=== PATIENT | male | born 1950 | race Caucasian/White ===

== ENCOUNTER → 2018-03-09 | Outpatient (CLI) | payer OTHER ==
[~2018-03-09] MED LIST: ALLO-119 PO; CHLOR25 PO; CPAP; FLUT16SP19 NS; FURO20TA19 PO; IBUP-56 PO; IBUP600T22 PO; INSU100I35 SQ; INSU300I SUBQ; METF-421 PO; METF10002 PO; METO2.5T15 PO; PNEU0.5D3 IM; POTA-23 PO; POTA-53 PO; POTA20IV IV; PRAV20TA65 PO; PRAV40TA78 PO; SOT80 FT; SOT80 PO; WARF5TAB23 PO; cpap
[2018-03-09 12:23] LABS: PLATELET COUNT, AUTOMATED 183 K/uL (150-450)
[2018-03-09 12:31] LABS: INR 2.17
[2018-03-09 12:40] LABS: LDL CHOLESTEROL 73 mg/dl
== END ==
LOC: LAB 12:13
PROVIDERS: ATTEND Emergency Medicine
DX: E11.9 Type 2 diabetes mellitus without complications (principal); Z79.01 Long term (current) use of anticoagulants
CPT/HCPCS: 36415; 82040; 82247; 82310; 82374; 82435; 82465; 82565; 82947; 83036; 83718; 84075; 84132; 84155; 84295; 84450; 84460; 84478; 84520; 85025; 85610

== ENCOUNTER → 2018-05-04 | Outpatient (CLI) | payer OTHER ==
[~2018-05-04] MED LIST changes: +FLUO-177 PO; +FLUO40CA76 PO; +MAGN400T36 PO
== END ==
LOC: LAB 09:58
PROVIDERS: ATTEND Emergency Medicine
DX: E11.9 Type 2 diabetes mellitus without complications (principal); E87.6 Hypokalemia
CPT/HCPCS: 36415; 82310; 82374; 82435; 82565; 82947; 83735; 84132; 84295; 84520

== ENCOUNTER → 2018-06-01 | Outpatient (CLI) | payer OTHER ==
[~2018-06-01] MED LIST changes: +METO50TA19 PO; +POTA20TA94 PO
--- NOTE | 2018-06-04 21:33 | RT HOLTER TEST ---
FACILITY: [facility] PATIENT NAME: MONICA EUBANKS : [id number] MR: [id number] V: [id number] EXAM DATE: ORDERING PHYSICIAN: MICHELET GARCIA TECHNOLOGIST: Jeffery Abraham-up date: 2018-06-01 10:00:00 Duration: 24:41:00 Test Indications: I49.9 Medications: In Chart [id number] QRS complexes 746 Ventricular ectopics which represent <1 % of total QRS comp. * Supraventricular ectopics which represent % of total QRS comp. * Paced QRS complexes which represent % of total QRS comp. VENTRICULAR ECTOPY 730 Isolated 0 Bigeminal Cycles 8 Couplets 0 Runs 0 Beats in Runs * Beats LONGEST at * BPM at :: -- * Beats FASTEST at * BPM at :: -- SUPRAVENTRICULAR ECTOPY * Isolated * Couplets * Runs * Beats in Runs * Beats LONGEST at * BPM at :: -- * Beats FASTEST at * BPM at :: -- HEART RATES 48 MIN at 02:07:32 2018-06-02 81 AVG 161 MAX at 10:07:01 2018-06-01 LONGEST RR 1.912 secs at 06:01:26 2018-06-02 S-T LEVELS Channel 1 -12.800 mm MIN at 10:00:00 2018-06-01 -12.800 mm MAX at 10:00:00 2018-06-01 Channel 2 -12.800 mm MIN at 10:00:00 2018-06-01 -12.800 mm MAX at 10:00:00 2018-06-01 Channel 3 -12.800 mm MIN at 10:00:00 2018-06-01 -12.800 mm MAX at 10:00:00 2018-06-01 Persistent a-fib with varying ventricular response rates. Premature ventricular complexes Confirmed by Williams Radford ([id number]) on 06/04/2018 9:32:18 PM Referred By: Overread By: Williams Chester
== END ==
LOC: RESP 06:42
PROVIDERS: ATTEND Internal Medicine Cardiovascular Disease
DX: I48.91 Unspecified atrial fibrillation (principal); I49.3 Ventricular premature depolarization
CPT/HCPCS: 93225; 93226

== ENCOUNTER → 2018-06-06 | Outpatient (CLI) | payer OTHER | LOC: LAB 10:30 | PROVIDERS: ATTEND Emergency Medicine | DX: E83.42 Hypomagnesemia (principal); E11.9 Type 2 diabetes mellitus without complications; R82.99 Other abnormal findings in urine | CPT/HCPCS: 36415; 81001; 82310; 82374; 82435; 82565; 82947; 83036; 83735; 84132; 84295; 84520 ==

== ENCOUNTER → 2018-06-08 | Outpatient (CLI) | payer OTHER ==
[2018-06-08 07:52] LABS: INR 2.66
== END ==
LOC: LAB 07:15
PROVIDERS: ATTEND Emergency Medicine
DX: E87.6 Hypokalemia (principal); Z79.01 Long term (current) use of anticoagulants
CPT/HCPCS: 36415; 82310; 82374; 82435; 82565; 82947; 84132; 84295; 84520; 85610

== ENCOUNTER → 2018-06-11 | Outpatient (CLI) | payer OTHER | LOC: LAB 09:11 | PROVIDERS: ATTEND Emergency Medicine | DX: E87.6 Hypokalemia (principal) | CPT/HCPCS: 36415; 82310; 82374; 82435; 82565; 82947; 84132; 84295; 84520 ==

== ENCOUNTER → 2018-06-13 | Outpatient (CLI) | payer OTHER | LOC: US 00:57 | PROVIDERS: ATTEND Internal Medicine Cardiovascular Disease | DX: I51.7 Cardiomegaly (principal); Q21.0 Ventricular septal defect | CPT/HCPCS: 93352; C8929 ==

== ENCOUNTER → 2018-06-15 | Outpatient (CLI) | payer OTHER | LOC: LAB 10:00 | PROVIDERS: ATTEND Emergency Medicine | DX: E87.6 Hypokalemia (principal) | CPT/HCPCS: 36415; 82310; 82374; 82435; 82565; 82947; 84132; 84295; 84520 ==

== ENCOUNTER → 2018-07-04 | Outpatient (CLI) | payer OTHER ==
[~2018-07-04] MED LIST changes: -METF-421 PO; +METF-452 PO; +SPIR25TA80 PO; +SPIR50TA33 PO
== END ==
LOC: LAB 09:45
PROVIDERS: ATTEND Emergency Medicine
DX: E87.6 Hypokalemia (principal)
CPT/HCPCS: 36415; 82310; 82374; 82435; 82565; 82947; 83735; 84132; 84295; 84520

== ENCOUNTER → 2018-07-18 | Outpatient (CLI) | payer OTHER ==
[~2018-07-18] MED LIST changes: +FLAS1EAC; +FLAS1KIT SUBQ; +FLU180SY11 IM
[2018-07-18 09:14] LABS: PLATELET COUNT, AUTOMATED 164 K/uL (150-450)
== END ==
LOC: LAB 08:59
PROVIDERS: ATTEND Emergency Medicine
DX: E11.9 Type 2 diabetes mellitus without complications (principal)
CPT/HCPCS: 36415; 82310; 82374; 82435; 82565; 82947; 83036; 84132; 84295; 84520; 85025

== ENCOUNTER → 2018-07-26 | Outpatient (CLI) | payer OTHER | LOC: LAB 15:52 | PROVIDERS: ATTEND Emergency Medicine | DX: R19.7 Diarrhea, unspecified (principal) | CPT/HCPCS: 82274; 82438; 83630; 84302; 84999; 87045; 87177; 87324; 87338; 87449 ==

== ENCOUNTER → 2018-08-03 | Outpatient (CLI) | payer OTHER ==
[~2018-08-03] MED LIST changes: +ATOR40TA69 PO; +CHOL100052 PO
== END ==
LOC: LAB 10:29
PROVIDERS: ATTEND Emergency Medicine
DX: E78.5 Hyperlipidemia, unspecified (principal); E83.51 Hypocalcemia; R20.8 Other disturbances of skin sensation
CPT/HCPCS: 36415; 82306; 82465; 83718; 84478

== ENCOUNTER 2018-09-29 20:24 | Emergency (ER) | payer OTHER ==
[~2018-09-29 20:24] MED LIST changes: +DOXY-179 PO
--- NOTE | 2018-09-29 20:26 | ER Report ---
History and Physical Time Seen By MD: 20:26 HPI/ROS CHIEF COMPLAINT: Nosebleed HISTORY OF PRESENT ILLNESS: 68-year-old male presents ambulatory to the ER complaining of nosebleeds for one week. He was started on doxycycline for a skin rash by his primary care physician, . Patient states he did having intermittent nosebleeds. He's been packing his nose for the last 2 days. Tonight. It's a continuous bleed. He is unable to get it stopped presents to the emergency department. Patient appears grossly jaundiced with icteric scl era. On just gross visualization. Review of systems: Respiratory: No cough, no dyspnea. Cardiovascular: No chest pain, no palpitations. Gastrointestinal: No vomiting, no abdominal pain. Musculoskeletal: No back pain. Allergies: Coded Allergies: Penicillins (Verified Allergy, Unknown, 09/29/18) EHR CONVERSION Home Meds Active Scripts Ondansetron Hcl (ZOFRAN) 4 Mg Tablet, 4 MG PO TID for Nausea, #14 TAB Prov:BENITO STOLL MD 10/01/18 Spironolactone (SPIRONOLACTONE) 50 Mg Tablet, 50 MG PO DAILY, #90 TAB 3 Refills Prov:BENITO STOLL MD 08/07/18 Atorvastatin Calcium (ATORVASTATIN CALCIUM) 40 Mg Tablet, 1 TAB PO QDAY, #90 TAB 0 Refills Prov:BENITO STOLL MD 08/03/18 Insulin Glargine,Hum.rec.anlog (Toujeo Solostar) 300 Unit/1 Ml Insuln.pen, 10 UNITS SUBQ QHS, #3 BOX 3 Refills Increase by 2 units every 2 days to keep fasting blood sugars between 80-120 Prov:BENITO STOLL MD 08/03/18 Flash Glucose Sensor (Freestyle Jez Sensor) 1 Each Kit, EA SUBQ DIRECTED, #3 11 Refills Prov:BENITO STOLL MD 07/18/18 Flash Glucose Scanning Hamill (Freestyle Jez Hamill) 1 Each Each, MISC, #1 Prov:BENITO STOLL MD 07/18/18 Insulin Aspart 100 Un/Ml Pen (NOVOLOG FLEXPEN) 100 Unit/1 Ml Insuln.pen, 40 UNIT SQ TID, #6 BOX 3 Refills 40 units QAM 36 units before lunch. 40 unit QPM. Prov:BENITO STOLL MD 06/27/18 Potassium Chloride (POTASSIUM CHLORIDE) 20 Meq Tab.er.prt, 2 TAB PO QDAY, #270 TAB 3 Refills Prov:BENITO STOLL MD 06/27/18 Magnesium Oxide (MAGNESIUM OXIDE) 400 Mg Tablet, 400 MG PO BID, #120 TAB 0 Refills Prov:BENITO STOLL MD 06/07/18 Fluoxetine Hcl (PROZAC) 40 Mg Capsule, 40 MG PO QDAY, #90 CAPSULE 3 Refills Prov:BENITO STOLL MD 05/04/18 Allopurinol (ZYLOPRIM) 300 Mg Tablet, 1 TAB PO DAILY, #90 TAB 3 Refills Please establish care with Dr. Stoll on 03/09/18 for further refills. Prov:BENITO STOLL MD 03/09/18 Reported Medications Cholecalciferol (Vitamin D3) (VITAMIN D) 1,000 Unit Tablet, 1000 UNIT PO DAILY 08/06/18 Metoprolol Succinate (METOPROLOL SUCCINATE) Unknown Strength Tab.er.24h, PO QDAY, TAB 06/06/18 Ibuprofen (IBUPROFEN) 200 Mg Tablet, 2 TAB PO QAM, TAB 03/09/18 [cpap] No Conflict Check, QHS 03/09/18 Fluticasone Prop 50 Mcg Ns (FLONASE 50 MCG NS) 16 Gm [place].susp, 1 SPRAY NS PRN, BOT 07/25/17 Cpap (CPAP HOME) Inha 07/25/17 Discontinued Scripts Doxycycline Hyclate (DOXYCYCLINE HYCLATE) 100 Mg Tablet, 100 MG PO BID, #30 TAB Prov:BENITO STOLL MD 09/04/18 Warfarin Sodium (WARFARIN SODIUM) 5 Mg Tablet, 5 MG PO QDAY, #192 TAB 3 Refills 10 mg on , Wed, Th, Sat, Sun. 15 mg on Mon, Mon. Prov:BENITO STOLL MD 06/08/18 Past Medical/Surgical History Past Medical History Cardiovascular: Reports hx of: atrial fibrillation (AND FLUTTER) hyperlipidemia Respiratory: Reports hx of: pneumonia sleep apnea (OBSTRUCTIVE, CPAP) Musculoskeletal: Reports hx of: osteoarthritis (knees, hips, ankles) Psychiatric: Reports hx of: depression Endocrine: Reports hx of: diabetes type 2 (WITH METABOLIC SYNDROME) obesity Past Surgical History HEENT: Reports hx of: tonsillectomy (1971) Musculoskeletal: Reports hx of: arthroscopy (bilateral knees) fracture repair (L foot) other musculosk surgery (L hip gluteal repair) Reviewed Nurses Notes: Yes Old Medical Records Reviewed: Yes Smoking Status: Never Smoker Exposure to Second Hand Smoke?: Yes (both parents ) Constitutional Vital Sign - Last 24 Hours 09/29/18 09/29/18 09/29/18 09/29/18 20:30 20:31 20:39 20:54 Pulse 79 80 72 Resp 14 B/P (MAP) 116/75 (89) 116/75 Pulse Ox 93 93 93 O2 Delivery Room Air 09/29/18 09/29/18 09/29/18 09/29/18 21:00 21:09 21:24 21:30 Pulse 69 81 B/P (MAP) 107/50 (69) 110/64 (79) Pulse Ox 92 90 09/29/18 09/29/18 09/29/18 09/29/18 21:39 21:54 22:00 22:09 Pulse 77 79 86 B/P (MAP) 108/60 (76) Pulse Ox 90 93 90 Physical Exam General Appearance: The patient is alert, has no immediate need for airway protection and no current signs of toxicity. Jaundice appearing, anicteric sclera HEENT: Pupils equal and round no injection. TMs normal, anicteric sclera, nasal passages patent, the left nasal passages packed with clean neck stiff. She. Upon removal, there is dark blood and clots noted. No active bleeding was not ed. Respiratory: Chest is non tender, lungs are clear to auscultation. Cardiac: regular rate and rhythm Gastrointestinal: Abdomen is soft and non tender, no masses, bowel sounds normal. Musculoskeletal: Neck: Neck is supple and non tender. Extremities have full range of motion and are non tender. Skin: No rashes or lesions. DIFFERENTIAL DIAGNOSIS: After history and physical exam differential diagnosis was considered for epistaxis, excessive anticoagulation, hypertension, adverse medication reaction, jaundice Medical Decision Making Data Points Result Diagram: 09/29/18204909/29/182049 Laboratory Hematology Test 09/29/18 20:50 Red Blood Count 4.97 M/uL (4.00-5.60) Mean Corpuscular Volume 92.1 fL (80.0-96.0) Mean Corpuscular Hemoglobin 30.9 pg (26.0-33.0) Mean Corpuscular Hemoglobin Concent 33.6 g/dL (32.0-36.0) Red Cell Distribution Width 16.3 % (11.5-14.5) Mean Platelet Volume 9.8 fL (7.2-11.1) Neutrophils (%) (Auto) 77.9 % (39.4-72.5) Lymphocytes (%) (Auto) 9.7 % (17.6-49.6) Monocytes (%) (Auto) 9.7 % (4.1-12.4) Eosinophils (%) (Auto) 0.9 % (0.4-6.7) Basophils (%) (Auto) 1.8 % (0.3-1.4) Nucleated RBC Relative Count (auto) 0.0 /100WBC Neutrophils # (Auto) 7.4 K/uL (2.0-7.4) Lymphocytes # (Auto) 0.9 K/uL (1.3-3.6) Monocytes # (Auto) 0.9 K/uL (0.3-1.0) Eosinophils # (Auto) 0.1 K/uL (0.0-0.5) Basophils # (Auto) 0.2 K/uL (0.0-0.1) Nucleated RBC Absolute Count (auto) 0.00 K/uL Prothrombin Time > 100.0 seconds Prothromb Time International Ratio Activated Partial Thromboplast Time 168 seconds (23-35) Sodium Level 137 mmol/L (137-145) Potassium Level 3.8 mmol/L (3.5-5.0) Chloride Level 103 mmol/L (98-107) Carbon Dioxide Level 23 mmol/L (22-30) Blood Urea Nitrogen 15 mg/dl (9-21) Creatinine 0.80 mg/dl (0.66-1.25) Glomerular Filtration Rate Calc > 60.0 Random Glucose 61 mg/dl (75-110) Calcium Level 8.8 mg/dl (8.4-10.2) Total Bilirubin 9.8 mg/dl (0.2-1.3) Aspartate Amino Transf (AST/SGOT) 213 U/L (0-35) Alanine Aminotransferase (ALT/SGPT) 158 U/L (0-56) Alkaline Phosphatase 1089 U/L (0-126) Total Protein 7.1 g/dl (6.3-8.2) Albumin 3.3 g/dl (3.5-5.0) Chemistry Test 09/29/18 20:50 White Blood Count 9.5 k/uL (4.5-11.0) Red Blood Count 4.97 M/uL (4.00-5.60) Hemoglobin 15.4 g/dL (14.0-18.0) Hematocrit 45.8 % (42.0-52.0) Mean Corpuscular Volume 92.1 fL (80.0-96.0) Mean Corpuscular Hemoglobin 30.9 pg (26.0-33.0) Mean Corpuscular Hemoglobin Concent 33.6 g/dL (32.0-36.0) Red Cell Distribution Width 16.3 % (11.5-14.5) Platelet Count 187 K/uL (150-450) Mean Platelet Volume 9.8 fL (7.2-11.1) Neutrophils (%) (Auto) 77.9 % (39.4-72.5) Lymphocytes (%) (Auto) 9.7 % (17.6-49.6) Monocytes (%) (Auto) 9.7 % (4.1-12.4) Eosinophils (%) (Auto) 0.9 % (0.4-6.7) Basophils (%) (Auto) 1.8 % (0.3-1.4) Nucleated RBC Relative Count (auto) 0.0 /100WBC Neutrophils # (Auto) 7.4 K/uL (2.0-7.4) Lymphocytes # (Auto) 0.9 K/uL (1.3-3.6) Monocytes # (Auto) 0.9 K/uL (0.3-1.0) Eosinophils # (Auto) 0.1 K/uL (0.0-0.5) Basophils # (Auto) 0.2 K/uL (0.0-0.1) Nucleated RBC Absolute Count (auto) 0.00 K/uL Prothrombin Time > 100.0 seconds Prothromb Time International Ratio Activated Partial Thromboplast Time 168 seconds (23-35) Glomerular Filtration Rate Calc > 60.0 Calcium Level 8.8 mg/dl (8.4-10.2) Total Bilirubin 9.8 mg/dl (0.2-1.3) Aspartate Amino Transf (AST/SGOT) 213 U/L (0-35) Alanine Aminotransferase (ALT/SGPT) 158 U/L (0-56) Alkaline Phosphatase 1089 U/L (0-126) Total Protein 7.1 g/dl (6.3-8.2) Albumin 3.3 g/dl (3.5-5.0) Coagulation Test 09/29/18 20:50 Prothrombin Time > 100.0 seconds Prothromb Time International Ratio Activated Partial Thromboplast Time 168 seconds ED Course/Re-evaluation ED Course Patient was admitted to an examination room. H&P was done. The differential diagnoses was considered. Patient with aggressive bleeding from his left nares. A 5.5, 70 rapid Rhino was saturated in TXA and placed in the left nares and inflated. Good hemostasis was obtained. Diagnostic studies were ordered. Patient has gross elevation of the LFTs. There is elevated PT, INR and PTT. P atient was given vitamin K 10 mg by mouth to reverse his anti-coagulation. Patient's advised to follow-up with primary care in 3 days to have his nasal packing removed. Patient advised to discontinue his warfarin until rechecked. I suspect the Patient had an adverse reaction to the doxycycline along with some of his diabetic medications. Decision to Disposition Date: Sep 29, 2018 Decision to Disposition Time: 20:52 Depart Departure Latest Vital Signs Vital Signs Date Time Temp Pulse Resp B/P (MAP) Pulse Ox O2 Delivery O2 Flow Rate FiO2 09/29/18 22:09 86 90 09/29/18 22:00 108/60 (76) 09/29/18 20:31 14 Room Air Impression: Primary Impression: Epistaxis Additional Impressions: Jaundice Type II diabetes mellitus Elevated INR Hypoglycemia Condition: Improved Disposition: HOME OR SELF-CARE Referrals: BENITO STOLL MD (PCP) Patient Instructions: Nosebleed (ED) Additional Instructions: Stop Coumadin until follow-up early next week with primary care Have nasal packing removed in 3 days Return to the ER for any worsening Problem Qualifiers Additional Impressions: Type II diabetes mellitus Diabetes mellitus assisted insulin use: with assisted use Diabetes mellitus complication status: without complication Qualified Codes: E11.9 - Type 2 diabetes mellitus without complications; Z79.4 - care home (current) use of insulin RODERICK KERN DO Sep 29, 2018 20:26
[2018-09-29] MEDS ORDERED: TRANEXAMIC AC 1000 MG/10ML SDV ONE (20:41)
[2018-09-29] MEDS ORDERED: ENT KIT ONE (20:42)
[2018-09-29 21:07] LABS: PLATELET COUNT, AUTOMATED 187 K/uL (150-450)
[2018-09-29 22:00] VITALS: BP 108/60
[2018-09-29] MEDS ORDERED: PHYTONADIONE 5 MG TAB PO ONE (22:10)
[2018-10-01] MEDS ORDERED: ONDA4TAB97 PO (16:20)
== END 2018-09-29 22:25 | disposition home or self-care (01) ==
LOC: ER 20:41
DX: R04.0 Epistaxis (principal); R17 Unspecified jaundice; E11.649 Type 2 diabetes mellitus with hypoglycemia without coma; Z79.4 Long term (current) use of insulin
CPT/HCPCS: 36415; 82040; 82247; 82310; 82374; 82435; 82565; 82947; 84075; 84132; 84155; 84295; 84450; 84460; 84520; 85025; 85610; 85730; 99283

== ENCOUNTER → 2018-10-03 | Outpatient (CLI) | payer OTHER ==
[~2018-10-03] MED LIST changes: +ONDA4TAB97 PO
[2018-10-03 12:39] LABS: PLATELET COUNT, AUTOMATED 251 K/uL (150-450)
== END ==
LOC: LAB 12:05
PROVIDERS: ATTEND Emergency Medicine
DX: C25.9 Malignant neoplasm of pancreas, unspecified (principal)
CPT/HCPCS: 36415; 82040; 82247; 82310; 82374; 82435; 82565; 82947; 84075; 84132; 84155; 84295; 84450; 84460; 84520; 85025; 85610; 85730

== ENCOUNTER 2018-10-11 14:23 | Emergency (ER) | payer OTHER ==
[~2018-10-11 14:23] MED LIST changes: -HYDR-385 PO; -METO100T20 PO; -POTA20TA10 PO
--- NOTE | 2018-10-11 14:33 | ER Report ---
History and Physical Time Seen By MD: 14:30 ([facility] OFFICER-BC) HPI/ROS CHIEF COMPLAINT: Possible kidney failure HISTORY OF PRESENT ILLNESS: This is a 68-year-old male presents to the emergency department for increased nausea and vomiting. Patient was seen September 29 for jaundice and abdominal pain, a concerning finding on the CT for pancreatic mass, was transferred to [facility] where he was diagnosed with pancreatic cancer. The patient was discharged from [facility] October 05, he did return home, he remains jaundiced. They did put in a biliary pouch while at [facility]. Patient continues to drain the pouch. He has had increased nausea and overall not feeling well, followed up with his primary care provider today. They did basic laboratory studies where they discovered that his BUN was 117, his creat inine was 6.2, sodium 121, and potassium 6.8, subsequent he was sent to the emergency department. The patient is jaundiced from the abdomen cranially, with scleral icterus. No fevers at home, no chills, no chest pain or shortness of breath. Did have a firm bowel movement yesterday. Does have abdominal pain in the right upper quadrant around the area where he had the biopsies. REVIEW OF SYSTEMS: Constitutional: No fever, no chills. Eyes: As above. ENT: No sore throat. Cardiovascular: No chest pain, no palpitations. Respiratory: No cough, no shortness of breath. Gastrointestinal: As above. Genitourinary: No hematuria. Musculoskeletal: No back pain. Skin: No rashes. Neurological: No headache. ([facility] OFFICER-) Allergies: Coded Allergies: doxycycline (Verified Allergy, Mild, states causes uncontrolled bleeding, 10/11/18) Penicillins (Verified Allergy, Unknown, 10/11/18) EHR CONVERSION Home Meds Active Scripts Insulin Glargine,Hum.rec.anlog (Rodo Dubon) 300 Unit/1 Ml Insuln.pen, 13 UNITS SUBQ QHS, #3 BOX 3 Refills Increase by 2 units every 2 days to keep fasting blood sugars between 80-120 Prov:BENITO REAL MD 10/03/18 Spironolactone (SPIRONOLACTONE) 50 Mg Tablet, 50 MG PO DAILY, #90 TAB 3 Refills Prov:BENITO REAL MD 08/07/18 Atorvastatin Calcium (ATORVASTATIN CALCIUM) 40 Mg Tablet, 1 TAB PO QDAY, #90 TAB 0 Refills Prov:BENITO REAL MD 08/03/18 Flash Glucose Sensor (Freestyle Jez Sensor) 1 Each Kit, EA SUBQ DIRECTED, #3 11 Refills Prov:BENITO REAL MD 07/18/18 Flash Glucose Scanning [place] (Freestyle Jez [place]) 1 Each Each, MISC, #1 Prov:BENITO REAL MD 07/18/18 Insulin Aspart 100 Un/Ml Pen (NOVOLOG FLEXPEN) 100 Unit/1 Ml Insuln.pen, 40 UNIT SQ TID, #6 BOX 3 Refills 40 units QAM 36 units before lunch. 40 unit QPM. Prov:BENITO REAL MD 06/27/18 Potassium Chloride (POTASSIUM CHLORIDE) 20 Meq Tab.er.prt, 2 TAB PO QDAY, #270 TAB 3 Refills Prov:BENITO REAL MD 06/27/18 Fluoxetine Hcl (PROZAC) 40 Mg Capsule, 40 MG PO QDAY, #90 CAPSULE 3 Refills Prov:BENITO REAL MD 05/04/18 Allopurinol (ZYLOPRIM) 300 Mg Tablet, 1 TAB PO DAILY, #90 TAB 3 Refills Please establish care with Dr. Real on 03/09/18 for further refills. Prov:BENITO REAL MD 03/09/18 Reported Medications Cholecalciferol (Vitamin D3) (VITAMIN D) 1,000 Unit Tablet, 1000 UNIT PO DAILY 08/06/18 Metoprolol Succinate (METOPROLOL SUCCINATE) Unknown Strength Tab.er.24h, PO QDAY, TAB 06/06/18 Ibuprofen (IBUPROFEN) 200 Mg Tablet, 2 TAB PO QAM, TAB 03/09/18 [cpap] No Conflict Check, QHS 03/09/18 Cpap (CPAP HOME) Inha 07/25/17 Past Medical/Surgical History The patient has a past medical and surgical history of A. fib, hyperchole sterolemia, pneumonia, orthopedic injuries, wears glasses, type II diabetes, on warfarin, pression, anxiety, tonsillectomy. Pancreatic cancer, acute renal failure. (MONCHO ROSA-) Reviewed Nurses Notes: Yes (MONCHO ROSA-BC) Smoking Status: Never Smoker Exposure to Second Hand Smoke?: Yes (both parents ) Hx Substance Use Disorder: No Hx Alcohol Use: No ([facility]A [facility]) Constitutional Vital Sign - Last 24 Hours 10/11/18 10/11/18 10/11/18 10/11/18 14:28 14:28 14:53 15:23 Temp 96.3 Pulse 91 97 Resp 20 43 21 B/P (MAP) 105/59 105/59 (74) Pulse Ox 94 71 79 O2 Delivery Room Air 10/11/18 10/11/18 10/11/18 10/11/18 15:30 15:36 15:36 15:53 Pulse 91 89 Resp 14 16 B/P (MAP) 99/57 (71) Pulse Ox 94 93 O2 Delivery Room Air 10/11/18 10/11/18 10/11/18 10/11/18 16:00 16:00 16:15 16:45 Pulse 91 80 82 Resp 24 13 15 B/P (MAP) 86/69 (75) 86/69 (75) Pulse Ox 96 98 92 10/11/18 10/11/18 17:12 17:15 Pulse 92 B/P (MAP) 124/49 (74) Pulse Ox 93 Intake and Output 10/11/18 10/11/18 10/12/18 14:59 22:59 06:59 Intake Total 1000 ml Balance 1000 ml (MERLE POOL MD) Physical Exam General Appearance: The patient is alert, has no immediate need for airway protection and no signs of toxicity, appears jaundiced and fatigued. Eyes: Pupils equal and round, scleral icterus. ENT, Mouth: Mucous membranes are moist. Respiratory: There are no retractions, lungs are clear to auscultation. Cardiovascular: Regular rate and rhythm, no murmurs, clicks or rubs. Gastrointestinal: Abdomen is soft, mild tenderness to the right upper quadrant and midepigastrium. Very faint and distant and hypoactive bowel sounds throughout the abdomen. No abdominal bruits. Biliary pouch and stoma covered and intact, no erythema or cellulitis. Neurological: Alert and oriented 4. Moving all extremities. Following all commands. No focal neuro deficits. Skin: Warm and dry, no rashes. Jaundiced from the waist cranially. Musculoskeletal: Neck is supple non tender. Extremities are nontender, nonswollen and have full range of motion. DIFFERENTIAL DIAGNOSIS: After history and physical exam differential diagnosis was considered for abdominal pain including but not limited to appendicitis, cholecystitis, constipation, obstruction, Gastritis and urinary tract infection. ([facility] ROSA [facility]) Medical Decision Making Data Points Laboratory Hematology Test 10/11/18 00:00 10/11/18 16:09 10/11/18 16:17 Lipase 869 U/L (23-300) Urine Color [place] Urine Clarity Cloudy Urine pH 5.0 pH (4.8-9.5) Urine Specific [place]ms 1.014 Urine Protein Negative mg/dL (NEGATIVE) Urine Glucose (UA) Negative mg/dL (NEGATIVE) Urine Ketones Negative mg/dL (NEGATIVE) Urine Blood Negative (NEGATIVE) Urine Nitrite Negative (NEGATIVE) Urine Bilirubin Negative (NEGATIVE) Urine Urobilinogen 2.0 mg/dL (0.2-1.9) Urine Leukocyte Esterase Negative (NEGATIVE) Urine RBC None /HPF (0-2/HPF) Urine WBC 4 /HPF (0-5/HPF) Urine Squamous Epithelial Cells Few /LPF (</=FEW) Urine Amorphous Crystals Moderate /HPF Urine Bacteria Negative /HPF (NONE-FEW) Urine Hyaline Casts Few /LPF (NONE-FEW) Urine Granular Casts Many /LPF (NONE) Urine Mucus None /HPF (NONE-FEW) Whole Blood Glucose 510 mg/DL (75-110) Chemistry Test 10/11/18 00:00 10/11/18 16:09 10/11/18 16:17 Lipase 869 U/L (23-300) Urine Color [place]line Urine Clarity Cloudy Urine pH 5.0 pH (4.8-9.5) Urine Specific Simms 1.014 Urine Protein Negative mg/dL (NEGATIVE) Urine Glucose (UA) Negative mg/dL (NEGATIVE) Urine Ketones Negative mg/dL (NEGATIVE) Urine Blood Negative (NEGATIVE) Urine Nitrite Negative (NEGATIVE) Urine Bilirubin Negative (NEGATIVE) Urine Urobilinogen 2.0 mg/dL (0.2-1.9) Urine Leukocyte Esterase Negative (NEGATIVE) Urine RBC None /HPF (0-2/HPF) Urine WBC 4 /HPF (0-5/HPF) Urine Squamous Epithelial Cells Few /LPF (</=FEW) Urine Amorphous Crystals Moderate /HPF Urine Bacteria Negative /HPF (NONE-FEW) Urine Hyaline Casts Few /LPF (NONE-FEW) Urine Granular Casts Many /LPF (NONE) Urine Mucus None /HPF (NONE-FEW) Whole Blood Glucose 510 mg/DL (75-110) Urinalysis Test 10/11/18 16:09 Urine Color Darline Urine Clarity Cloudy Urine pH 5.0 pH (4.8-9.5) Urine Specific Simms 1.014 Urine Protein Negative mg/dL (NEGATIVE) Urine Glucose (UA) Negative mg/dL (NEGATIVE) Urine Ketones Negative mg/dL (NEGATIVE) Urine Blood Negative (NEGATIVE) Urine Nitrite Negative (NEGATIVE) Urine Bilirubin Negative (NEGATIVE) Urine Urobilinogen 2.0 mg/dL (0.2-1.9) Urine Leukocyte Esterase Negative (NEGATIVE) Urine RBC None /HPF (0-2/HPF) Urine WBC 4 /HPF (0-5/HPF) Urine Squamous Epithelial Cells Few /LPF (</=FEW) Urine Amorphous Crystals Moderate /HPF Urine Bacteria Negative /HPF (NONE-FEW) Urine Hyaline Casts Few /LPF (NONE-FEW) Urine Granular Casts Many /LPF (NONE) Urine Mucus None /HPF (NONE-FEW) (MERLE POOL MD) EKG/Imaging EKG Interpretation 12 lead EKG: Time of EKG 1445. Rhythm: Atrial fibrillation, rate of 96 bpm. [place]: normal QRS: Right bundle branch block, ST segments: normal No significant changes from the 06/04/2018 Holter monitor report. Imaging Location: [facility] [place] Patient: Myles Ricardo : 1950 Visit/Account:[id number] Date of Sevice: 10/11/2018 EXAMINATION: CT abdomen and pelvis without IV contrast HISTORY: Jaundice. New diagnosis pancreatic cancer. Query obstruction. TECHNIQUE: Axial CT images of the abdomen and pelvis were obtained without IV contrast, with coronal and sagittal 2D reconstructed images. One of the following dose optimization techniques was utilized in the performance of this exam: Automated exposure control; adjustment of the mA and/or kV according to the patient's size; or use of an iterative reconstruction technique. Specific details can be referenced in the facility's radiology CT exam operational policy. COMPARISON: CT abdomen/pelvis without contrast 10/02/2018. CT abdomen without and with contrast 10/03/2018 from [facility]. Fluoroscopic images from transhepatic cholangiogram 10/05/2018, from [facility]. FINDINGS: Evaluation of the solid and viscus parenchymal organs is limited without the benefit of IV contrast. Hepatobiliary: The recently placed internal/external biliary drainage catheter appears stable in position from the fluoroscopic images of 10/05/2018. The catheter traverses the right lobe of the liver extending centrally along the bile ducts with the distal catheter loop located in the third portion of the duodenum. Dilatation of the intrahepatic bile ducts present on the prior CT examinations is markedly improved. Prior distention of the gallbladder is also improved. Normal hepatic size and morphology. No focal parenchymal liver mass. No new perihepatic fluid collection. Spleen: Negative. Pancreas: The known mass along the pancreatic head and uncinate process appears grossly stable by noncontrast CT imaging, measuring approximately 5 cm in diameter. There is stable parenchymal atrophy along the pancreatic body and tail with mild ductal dilatation. Adrenal glands: Negative. Kidneys: No urinary calculi or hydronephrosis. 2.8 cm exophytic cyst along the mid right kidney. Bowel and peritoneum: The small bowel and colon are normal in caliber. No bowel obstruction. No free fluid or free intraperitoneal air. Pelvic structures: Negative. Lymph node assessment: Mildly prominent peripancreatic lymph nodes are stable, better defined on the prior contrast-enhanced exam. Vessels: Normal caliber abdominal aorta. Scattered vascular calcifications. Musculoskeletal: No acute osseous findings. Scattered degenerative changes along the spine. Body wall: Negative. Lung bases: Negative. IMPRESSION: 1. A new internal/external biliary drainage catheter is present and appears appropriately positioned by CT, with the distal loop of the drain located along the third portion of the duodenum. 2. Marked improvement of the prior intrahepatic ductal dilatation. The gallbladder is also less distended. 3. Grossly stable appearance of the ill-defined malignant appearing mass along the pancreatic head and uncinate process, measuring up to 5 cm in diameter. 4. No other new intra-abdominal findings by noncontrast CT imaging. Report Dictated By: Nickolas Reid MD at 10/11/2018 4:58 PM Report E-Signed By: Nickolas Reid MD at 10/11/2018 5:19 PM WSN:[id number] ([facility] OFFICER-BC) ED Course/Re-evaluation Clinical Indication for ER IV: Hydration, IV Access ED Course The patient was admitted to room. A history and physical were obtained. Differential diagnoses were considered. IV was started. CBC, CMP from primary care provider's office showing white blood cell count 16.1, MCV 97.2, platelets 519, percent neutrophils 90.1, chemistry showing sodium 121, potassium 6.8, chloride 77, CO2 13, BUN 117, creatinine 6.20, glucose 470, hemoglobin A1c a week ago 7.0, AST 62, ALT 74, alk phosphatase 662, total bilirubin 16.5, total protein 9.0, INR 1.62. Lipase 869. EKG showing atrial fibrillation. The patient had pain to the right upper quadrant into the epigastrium. Hypoactive bowel sounds I was concerned about a possible bowel injection as well, I did repeat a CT of the abdomen and pelvis. The patient was also given 1 amp of calcium gluconate, 10 units of IV insulin, and albuterol treatment, and Kayexalate. I reviewed the laboratory studies and my concerns with the patient and his , I did explain to them that unfortunately we're not able to perform acute dialysis in our facility there for a transfer to [facility] would be most appropriate. The patient and his were in agreement with this, there are obviously upset, his is tearful. I did speak with Dr. Cisneros, the hospitalist at [facility] as noted below, the patient will be transferred down to [facility] ICU for pancreatic cancer, hyperkalemia, hyponatremia and acute renal failure. The patient and his are in agreement with this. No acute findings noted on the repeat CT. 10/11/2018 4:05: pm I did speak with Dr. Cisneros, the hospitalist at [facility], we discussed the patient's case, he has accepted the patient into the hospitalist services, the patient will be transferred by ground ambulance and will go to the ICU at [facility]. The patient is aware of this. He is are in agreement with this plan. Decision to Disposition Date: Oct 11, 2018 Decision to Disposition Time: 16:09 ([facility] OFFICER-BC) Depart Departure Latest Vital Signs Vital Signs Date Time Temp Pulse Resp B/P (MAP) Pulse Ox O2 Delivery O2 Flow Rate FiO2 10/11/18 17:15 92 93 10/11/18 17:12 124/49 (74) 10/11/18 16:45 15 10/11/18 15:36 Room Air 10/11/18 14:28 96.3 (MERLE POOL MD) Impression: Primary Impression: Pancreatic cancer Additional Impressions: Acute renal failure Hyponatremia Hyperkalemia Condition: Improved Disposition: XFER TO [facility] ([facility] Referrals: BENITO REAL MD (PCP) [employer]PA consult with MD: Verbally MD Consult Note: I assisted Moncho with the management of this patient today. (MERLE POOL MD) Problem Qualifiers Primary Impression: Pancreatic cancer Pancreatic malignancy location: head of pancreas Qualified Codes: C25.0 - Malignant neoplasm of head of pancreas Additional Impressions: Acute renal failure Acute renal failure type: unspecified Qualified Codes: N17.9 - Acute kidney failure, unspecified MONCHO ROSAP-BC Oct 11, 2018 14:33 MERLE POOL MD Oct 11, 2018 15:51
[2018-10-11] MEDS ORDERED: NS(*) 0.9% 1000 ML BAG 1,000 ML IV ONE (14:37)
[2018-10-11] MEDS ORDERED: ONDANSETRON 4 MG/2 ML VIAL IVP ONE (14:40)
--- NOTE | 2018-10-11 14:52 | EKG ---
FACILITY: [facility] [place] PATIENT NAME: MONICA EUBANKS : [id number] MR: [id number] V: [id number] EXAM DATE: ORDERING PHYSICIAN: KIRTI ROSA TECHNOLOGIST: [place] Reason : Blood Pressure : / mmHG Vent. Rate : 096 BPM Atrial Rate : 096 BPM P-R Int : 174 ms QRS Dur : 178 ms QT Int : 386 ms P-R-T Axes : 000 110 054 degrees QTc Int : 487 ms Atrial fibrillation Right bundle branch block ST depression in ant/sep leads consistent with ischemia Confirmed by CARMITA RODGERS ([id number]) on 10/11/2018 6:32:57 PM Referred By: [facility] Confirmed By:CARMITA RODGERS
[2018-10-11] MEDS ORDERED: INSU HUM REG 100 U/ML(ER ONLY) 10 ML VIAL IV ONE (15:10)
[2018-10-11] MEDS ORDERED: SODIUM POLYST SULF 15 GM/60 ML PO ONE (15:10)
[2018-10-11] MEDS ORDERED: CALCIUM GLUC 10% 100 MG/ML VL IVP ONE (15:10)
[2018-10-11] MEDS ORDERED: ALBUTEROL/IPRATROPIUM 3 ML NEB NEB ONE (15:10)
[2018-10-11] MEDS ORDERED: INSU HUM REG 100 U/ML(ER ONLY) 10 ML VIAL IVP ONE (15:40)
[2018-10-11] MEDS ORDERED: INSULIN HUM REG 100 UN/ML 3 ML VIAL IVP ONE (15:40)
[2018-10-11 17:12] VITALS: BP 124/49
--- NOTE | 2018-10-11 17:23 | RADIOLOGY IMAGING REPORT ---
FACILITY: [facility] PATIENT NAME: Myles Ricardo : 1950 MR: [id number] V: [id number] EXAM DATE: ORDERING PHYSICIAN: KIRTI ROSA TECHNOLOGIST: Location: [facility] Patient: Myles Ricardo : 1950 Visit/Account:[id number] Date of Sevice: 10/11/2018 EXAMINATION: CT abdomen and pelvis without IV contrast HISTORY: Jaundice. New diagnosis pancreatic cancer. Query obstruction. TECHNIQUE: Axial CT images of the abdomen and pelvis were obtained without IV contrast, with perales l and sagittal 2D reconstructed images. One of the following dose optimization techniques was utilized in the performance of this exam: Autom ated exposure control; adjustment of the mA and/or kV according to the patient's size; or use of an i terative reconstruction technique. Specific details can be referenced in the facility's radiology C T exam operational policy. COMPARISON: CT abdomen/pelvis without contrast 10/02/2018. CT abdomen without and with contrast 10/03/[address] [facility] ([place], [place]). Fluoroscopic images from transhepatic cholangiogram 10/05/2018, from [facility] ([place], [place]). FINDINGS: Evaluation of the solid and viscus parenchymal organs is limited without the benefit of IV contrast. Hepatobiliary: The recently placed internal/external biliary drainage catheter appears stable in posi tion from the fluoroscopic images of 10/05/2018. The catheter traverses the right lobe of the liver e xtending centrally along the bile ducts with the distal catheter loop located in the third portion of the duodenum. Dilatation of the intrahepatic bile ducts present on the prior CT examinations is memo edly improved. Prior distention of the gallbladder is also improved. Normal hepatic size and morpholo gy. No focal parenchymal liver mass. No new perihepatic fluid collection. Spleen: Negative. Pancreas: The known mass along the pancreatic head and uncinate process appears grossly stable by no ncontrast CT imaging, measuring approximately 5 cm in diameter. There is stable parenchymal atrophy a long the pancreatic body and tail with mild ductal dilatation. Adrenal glands: Negative. Kidneys: No urinary calculi or hydronephrosis. 2.8 cm exophytic cyst along the mid right kidney. Bowel and peritoneum: The small bowel and colon are normal in caliber. No bowel obstruction. No free fluid or free intraperitoneal air. Pelvic structures: Negative. Lymph node assessment: Mildly prominent peripancreatic lymph nodes are stable, better defined on the prior contrast-enhanced exam. Vessels: Normal caliber abdominal aorta. Scattered vascular calcifications. Musculoskeletal: No acute osseous findings. Scattered degenerative changes along the spine. Body wall: Negative. Lung bases: Negative. IMPRESSION: 1. A new internal/external biliary drainage catheter is present and appears appropriately positioned by CT, with the distal loop of the drain located along the third portion of the duodenum. 2. Marked improvement of the prior intrahepatic ductal dilatation. The gallbladder is also less diste nded. 3. Grossly stable appearance of the ill-defined malignant appearing mass along the pancreatic head an d uncinate process, measuring up to 5 cm in diameter. 4. No other new intra-abdominal findings by noncontrast CT imaging. Report Dictated By: Nickolas Reid MD at 10/11/2018 4:58 PM Report E-Signed By: Nickolas Reid MD at 10/11/2018 5:19 PM WSN:[id number]
== END 2018-10-11 17:55 | disposition short-term general hospital (02) ==
LOC: ER 14:44
DX: C25.0 Malignant neoplasm of head of pancreas (principal); N17.9 Acute kidney failure, unspecified; E87.1 Hypo-osmolality and hyponatremia; E87.5 Hyperkalemia; I48.91 Unspecified atrial fibrillation
CPT/HCPCS: 36416; 74176; 81001; 82948; 83690; 93005; 94640; 96361; 96374; 96375; 99285; J0610; J1815; J2405; J7030; J7620

== ENCOUNTER → 2018-10-11 | Outpatient (CLI) | payer OTHER ==
[~2018-10-11] MED LIST changes: +HYDR-385 PO; +METO100T20 PO; +POTA20TA10 PO
== END ==
LOC: AMB 17:34
PROVIDERS: ATTEND Nurse Practitioner
DX: N17.9 Acute kidney failure, unspecified (principal); E87.5 Hyperkalemia; K86.89 Other specified diseases of pancreas
CPT/HCPCS: A0425; A0426

== ENCOUNTER → 2018-11-24 | Outpatient (CLI) | payer OTHER ==
[~2018-11-24] MED LIST changes: +HYDR-385 PO; +LOPE2CAP88 PO; +LORA-1455 PO; +MELO-207 PO; +METO100T20 PO; +OMEP-125 PO; +ONDA-2 PO; +POTA20TA10 PO; +PROC10TA4 PO
[2018-11-24 15:10] LABS: PLATELET COUNT, AUTOMATED 279 K/uL (150-450)
== END ==
LOC: LAB 14:38
PROVIDERS: ATTEND Nurse Practitioner Primary Care
DX: C25.9 Malignant neoplasm of pancreas, unspecified (principal)
CPT/HCPCS: 36415; 81001; 82040; 82247; 82310; 82374; 82435; 82565; 82947; 84075; 84132; 84155; 84295; 84450; 84460; 84520; 85025

== ENCOUNTER 2018-12-10 09:45 | Outpatient (RCR) | payer OTHER ==
--- NOTE | 2018-11-13 10:32 | PT INITIAL EVALUATION ---
MEDICAL DIAGNOSIS: Pancreatic Cancer TREATMENT DIAGNOSIS: Pancreatic Cancer, Type 2 DM DATE OF ONSET: 11/12/18 SUBJECTIVE: Myles is a 68 year old male presenting to oncology rehabilitation for education and treatment following diagnosis and begining chemotherapy intervention for pancreatic cancer. Today pt is to receive first round of Oxaliplatin. Pt reports that over the last couple weeks his back has been hurting him and he has been seeing a chiropractor regularly for treatment with slight improvement. Additionally pt reports a history of neck problems that started in the early ' following a fracture that come and go. Pain is currently not present but will occasionally radiate to the R scapula which is improved with trigger point release. Pt reports that he is moderately active. 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 Pt has a history of type 2 DM for which he reports having fluctuating sugars which he monitors regularly. He reports that he has not really made any modifications to his diet concerning his DM however. 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 Cervical ROM: Full in all motions without pain. Lumbar ROM: Not assessed at this time Sensation: Pt reports no neuropathy at this time but occasionally has cold fingers which feel slick. Mobility: ECOG Performance Status: Grade 1 ASSESSMENT: Myles presents with signs and symptoms consistent with diagnosis of pancreatic cancer with possible lumbar and cervical dysfunction for which he is receiving chiropractic treatment. Education was provided to patient on physical side effects of chemotherapy intervention and disease status including onset of neuropathy, low back pain, fatigue and weakness. Oncology rehabilitation is indicated for this patient to assist at maintaining functional status with ongoing oncological intervention. Short Term Goals In 2 MO pt will maintain ECOG Performance Status of Grade1 for maintained function with ADL's. In 2 MO pt will have no low back pain or cervical pain with ADL's with full motion for improved function with ADL's. In 4 MO pt will maintain ECOG Performance Status of Grade 2 or less for maintained function with ADL's. Patient's Goals Maintain function with ADL's. PLAN: Patient to be seen for Manual Therapy/STM/MET Strengthening/condition Ice/Heat Range of Motion Spinal Stabilization Ultrasound Stretching Iontophoresis Neuromuscular Re-ed Closed Chain Program Electrical Stim Posture/Body mechanics Gait Trg/Balance Trg Biofeedback Home Exercise Program [facility]./Manual Traction Therapeutic Activities Pelvic Floor 1x/MO for 6 MO If you have any questions, comments, or concerns about this report or plan, please contact me at . Thank you, Molly Chavez, PT, DPT, CLT [facility]
--- NOTE | 2018-11-24 12:28 | Oncology Note ---
Patient called today while I was business information manager for the [facility]. History of pancreatic cancer s/p biliary stent as a result of obstruction. Bilirubin has been gradually trending downward to normal range. Today, patient called reporting very dark-colored urine. No other symptoms such as abdominal pain, changes in mental function, blood in stool, vomiting, fever or bleeding. I'm having patient go to the outpatient lab at [facility] to check a CBC, CMP, UA. If labs are stable, I will advise patient to follow-up with the Cancer Center on Monday of next week as previously scheduled. If anything critical or concerning with labs, I will advise patient go to the ED for further evaluation and treatment. Copies To 1: JD MATSON-C ; GEORGES SHEPHERD DNP, UNISHEAR OPERATOR-BC Nov 24, 2018 12:28
[~2018-12-10 09:45] MED LIST changes: +APIX5TAB PO; +DICY20TA70 PO; +TRAM-420 PO
[2018-12-14] MEDS ORDERED: POTA20TA94 PO (08:59)
[2018-12-17] MEDS ORDERED: TRAM-420 PO (12:58)
[2018-12-28] MEDS ORDERED: APIX5TAB PO (09:47)
[2019-01-03] MEDS ORDERED: FURO-45 PO (16:44)
[2019-01-03] MEDS ORDERED: METO2.5T15 PO (16:44)
[2019-01-03] MEDS ORDERED: POTA-28 PO (16:44)
[2019-01-07] MEDS ORDERED: ACET-1966 PO (10:03)
[2019-01-07] MEDS ORDERED: MAGN400T52 PO (10:07)
[2019-01-28] MEDS ORDERED: CYCL-277 PO (12:19)
== END 2019-02-10 ==
LOC: PT 09:45
PROVIDERS: ATTEND Nurse Practitioner
DX: C25.9 Malignant neoplasm of pancreas, unspecified (principal); E11.9 Type 2 diabetes mellitus without complications
CPT/HCPCS: 97161

== ENCOUNTER 2018-12-22 16:37 | Observation (INO) | payer OTHER ==
--- NOTE | 2018-12-22 16:46 | ER Report ---
History and Physical Time Seen By : 16:46 HPI/ROS CHIEF COMPLAINT: Difficulty speaking HISTORY OF PRESENT ILLNESS: 68-year-old male patient presents to emergency room with complaint of difficulty speaking. Patient had left his home approximately 2:00 this afternoon. When he returned home at 4:00 this afternoon he was not able to speak properly. His states that he will try to say something and the wrong words would come out. He is never had anything like this happen previously. Patient was recently diagnosed with pancreatic cancer and is currently getting chemotherapy for this. Patient is also receiving treatment with Eliquis for atrial fibrillation. is concerned about possible stroke and did want him to be evaluated. REVIEW OF SYSTEMS: Respiratory: No cough, no dyspnea. Cardiovascular: No chest pain, no palpitations. Gastrointestinal: No vomiting, no abdominal pain. Musculoskeletal: No back pain. Allergies: Coded Allergies: doxycycline (Verified Allergy, Mild, states causes uncontrolled bleeding, 10/11/18) Penicillins (Verified Allergy, Unknown, 10/11/18) EHR CONVERSION Home Meds Active Scripts Tramadol Hcl (TRAMADOL HCL) 50 Mg Tablet, 50-100 MG PO Q 8H for PAIN, #60 TAB 1 Refill Prov:DOM VILCHIS APRN,DIGESTER 12/17/18 Apixaban (ELIQUIS) 5 Mg Tablet, 5 MG PO BID, #60 TAB 0 Refills Prov:BENITO REAL MD 12/04/18 Meloxicam (MELOXICAM) 15 Mg Tablet, 15 MG PO QDAY, #90 TAB 3 Refills Prov:BENITO REAL MD 11/30/18 Tramadol Hcl (TRAMADOL HCL) 50 Mg Tablet, 50 MG PO Q4-6H, #30 TAB Prov:BENITO REAL MD 11/28/18 Insulin Aspart 100 Un/Ml Pen (NOVOLOG FLEXPEN) 100 Unit/1 Ml Insuln.pen, 10-45 UNIT SQ TID, #6 BOX 3 Refills Sliding Scale: <100=10 units <200=25 units >300=35 units >400=40 units >500=45 units Prov:BENITO REAL MD 11/28/18 Atorvastatin Calcium (ATORVASTATIN CALCIUM) 40 Mg Tablet, 1 TAB PO QDAY, #90 TAB 0 Refills Prov:BENITO REAL MD 11/19/18 Omeprazole (OMEPRAZOLE) 20 Mg Capsule.dr, 1 CAP PO QDAY, #30 CAP 5 Refills Prov:BENITO REAL MD 11/09/18 Insulin Glargine,Hum.rec.anlog (Tourayao Solostar) 300 Unit/1 Ml Insuln.pen, 13 UNITS SUBQ QHS, #3 BOX 3 Refills Increase by 2 units every 2 days to keep fasting blood sugars between 80-120 Prov:BENITO REAL MD 10/03/18 Fluoxetine Hcl (PROZAC) 40 Mg Capsule, 40 MG PO QDAY, #90 CAPSULE 3 Refills Prov:BENITO REAL MD 05/04/18 Allopurinol (ZYLOPRIM) 300 Mg Tablet, 1 TAB PO DAILY, #90 TAB 3 Refills Please establish care with Dr. Real on 03/09/18 for further refills. Prov:BENITO REAL MD 03/09/18 Reported Medications Potassium Chloride (POTASSIUM CHLORIDE) 20 Meq Tab.er.prt, 20 MEQ PO BID 12/14/18 Dicyclomine Hcl (DICYCLOMINE HCL) 20 Mg Tablet, 20 MG PO DAILY PRN for PRN 11/28/18 Loperamide Hcl (LOPERAMIDE) 2 Mg Capsule, 2 MG PO PRN for DIARRHEA, CAPSULE Take 2 capsules at the first sign of diarrhea, then 1 capsule Q2 hours until diarrhea free for 12 hrs 11/09/18 Ondansetron Hcl (ONDANSETRON HCL) 4 Mg Tablet, 8 MG PO Q8H PRN for NAUSEA, TAB 11/09/18 Prochlorperazine Maleate (Compazine) 10 Mg Tablet, 10 MG PO Q6-8H PRN for NAUSEA 11/09/18 Metoprolol Succinate (METOPROLOL SUCCINATE) 100 Mg Tab.er.24h, 1 TAB PO QDAY, TAB 10/22/18 Cholecalciferol (Vitamin D3) (VITAMIN D) 1,000 Unit Tablet, 1000 UNIT PO DAILY 08/06/18 [cpap] No Conflict Check, QHS 03/09/18 Past Medical/Surgical History Patient has a past medical history of TIA, A. fib, hyperlipidemia, pneumonia, fractures, type 2 diabetes, anxiety, depression, pancreatic cancer, ch emotherapy, currently taking Eliquis for his A. fib. Patient has a surgical history of left ankle surgery, left total hip, tonsillectomy. Reviewed Nurses Notes: Yes Smoking Status: Never Smoker Exposure to Second Hand Smoke?: Yes (both parents ) Hx Substance Use Disorder: No Hx Alcohol Use: No Constitutional Vital Sign - Last 24 Hours 12/22/18 12/22/18 12/22/18 12/22/18 16:37 16:44 16:46 16:54 Pulse 77 Resp 14 B/P (MAP) 56/45 (49) 111/68 (82) 95/51 (66) Pulse Ox 96 O2 Delivery Room Air 12/22/18 12/22/18 12/22/18 12/22/18 17:00 17:00 17:07 17:15 Pulse 79 75 Resp 16 12 B/P (MAP) 100/67 100/67 (78) 122/70 (87) Pulse Ox 97 96 O2 Delivery Room Air Nasal Cannula O2 Flow Rate 2 12/22/18 12/22/18 12/22/18 12/22/18 17:20 17:30 17:45 17:50 Pulse 76 78 Resp 23 13 B/P (MAP) ???/??? (0924) 126/68 (87) Pulse Ox 95 12/22/18 12/22/18 12/22/18 12/22/18 18:00 18:05 18:46 19:05 Pulse 72 84 Resp 16 11 B/P (MAP) 123/74 (90) 99/85 (90) Pulse Ox 100 94 12/22/18 12/22/18 12/22/18 12/22/18 19:10 19:15 19:20 19:25 Pulse 87 ? Resp 19 20 B/P (MAP) ???/??? (8564) Pulse Ox 94 93 12/22/18 12/22/18 12/22/18 12/22/18 19:30 19:35 19:40 19:45 Pulse ? B/P (MAP) ???/??? (6058) 12/22/18 12/22/18 12/22/18 12/22/18 19:50 19:55 20:00 20:05 Pulse ? B/P (MAP) ???/??? (3559) 12/22/18 12/22/18 12/22/18 12/22/18 20:16 20:20 20:25 20:30 Pulse 91 88 86 Resp 9 8 B/P (MAP) 107/69 (82) Pulse Ox 94 92 93 12/22/18 12/22/18 12/22/18 12/22/18 20:35 20:40 20:45 20:50 Pulse 89 85 86 83 Resp 16 15 15 20 Pulse Ox 93 97 94 95 12/22/18 12/22/18 20:55 21:00 Pulse 78 81 Resp 20 20 Pulse Ox 95 95 Physical Exam General Appearance: The patient is alert, has no immediate need for airway protection and no current signs of toxicity. Respiratory: Chest is non tender, lungs are clear to auscultation. Cardiac: regular rate and rhythm Gastrointestinal: Abdomen is soft and non tender, no masses, bowel sounds jenni l. Musculoskeletal: Neck: Neck is supple and non tender. Extremities have full range of motion and are non tender. Skin: No rashes or lesions. Neuro: Patient is alert and oriented 4, cranial nerves II through XII grossly intact. Patient is able answer yes and no questions without any difficulties. However when he tries to expand he does have a difficult time using proper words. DIFFERENTIAL DIAGNOSIS: After history and physical exam differential diagnosis was considered for stroke, TIA, brain metastasis. Medical Decision Making Data Points Result Diagram: 12/22/18 1658 12/22/18 1658 Laboratory Hematology Test 12/22/18 16:58 Red Blood Count 3.67 M/uL (4.00-5.60) Mean Corpuscular Volume 93.7 fL (80.0-96.0) Mean Corpuscular Hemoglobin 31.7 pg (26.0-33.0) Mean Corpuscular Hemoglobin Concent 33.8 g/dL (32.0-36.0) Red Cell Distribution Width 15.2 % (11.5-14.5) Mean Platelet Volume 8.1 fL (7.2-11.1) Neutrophils (%) (Auto) 84.1 % (39.4-72.5) Lymphocytes (%) (Auto) 12.2 % (17.6-49.6) Monocytes (%) (Auto) 3.1 % (4.1-12.4) Eosinophils (%) (Auto) 0.1 % (0.4-6.7) Basophils (%) (Auto) 0.5 % (0.3-1.4) Nucleated RBC Relative Count (auto) 0.0 /100WBC Neutrophils # (Auto) 8.2 K/uL (2.0-7.4) Lymphocytes # (Auto) 1.2 K/uL (1.3-3.6) Monocytes # (Auto) 0.3 K/uL (0.3-1.0) Eosinophils # (Auto) 0.0 K/uL (0.0-0.5) Basophils # (Auto) 0.1 K/uL (0.0-0.1) Nucleated RBC Absolute Count (auto) 0.00 K/uL Prothrombin Time 14.6 seconds (12.0-14.4) Prothromb Time International Ratio 1.14 Activated Partial Thromboplast Time 34 seconds (23-35) Sodium Level 133 mmol/L (137-145) Potassium Level 3.2 mmol/L (3.5-5.0) Chloride Level 93 mmol/L (98-107) Carbon Dioxide Level 29 mmol/L (22-30) Blood Urea Nitrogen 22 mg/dl (9-21) Creatinine 1.10 mg/dl (0.66-1.25) Glomerular Filtration Rate Calc > 60.0 Random Glucose 306 mg/dl (75-110) Calcium Level 8.5 mg/dl (8.4-10.2) Total Bilirubin 0.6 mg/dl (0.2-1.3) Aspartate Amino Transf (AST/SGOT) 20 U/L (0-35) Alanine Aminotransferase (ALT/SGPT) 25 U/L (0-56) Alkaline Phosphatase 144 U/L (0-126) Total Protein 6.4 g/dl (6.3-8.2) Albumin 3.3 g/dl (3.5-5.0) Chemistry Test 12/22/18 16:58 White Blood Count 9.7 k/uL (4.5-11.0) Red Blood Count 3.67 M/uL (4.00-5.60) Hemoglobin 11.6 g/dL (14.0-18.0) Hematocrit 34.3 % (42.0-52.0) Mean Corpuscular Volume 93.7 fL (80.0-96.0) Mean Corpuscular Hemoglobin 31.7 pg (26.0-33.0) Mean Corpuscular Hemoglobin Concent 33.8 g/dL (32.0-36.0) Red Cell Distribution Width 15.2 % (11.5-14.5) Platelet Count 330 K/uL (150-450) Mean Platelet Volume 8.1 fL (7.2-11.1) Neutrophils (%) (Auto) 84.1 % (39.4-72.5) Lymphocytes (%) (Auto) 12.2 % (17.6-49.6) Monocytes (%) (Auto) 3.1 % (4.1-12.4) Eosinophils (%) (Auto) 0.1 % (0.4-6.7) Basophils (%) (Auto) 0.5 % (0.3-1.4) Nucleated RBC Relative Count (auto) 0.0 /100WBC Neutrophils # (Auto) 8.2 K/uL (2.0-7.4) Lymphocytes # (Auto) 1.2 K/uL (1.3-3.6) Monocytes # (Auto) 0.3 K/uL (0.3-1.0) Eosinophils # (Auto) 0.0 K/uL (0.0-0.5) Basophils # (Auto) 0.1 K/uL (0.0-0.1) Nucleated RBC Absolute Count (auto) 0.00 K/uL Prothrombin Time 14.6 seconds (12.0-14.4) Prothromb Time International Ratio 1.14 Activated Partial Thromboplast Time 34 seconds (23-35) Glomerular Filtration Rate Calc > 60.0 Calcium Level 8.5 mg/dl (8.4-10.2) Total Bilirubin 0.6 mg/dl (0.2-1.3) Aspartate Amino Transf (AST/SGOT) 20 U/L (0-35) Alanine Aminotransferase (ALT/SGPT) 25 U/L (0-56) Alkaline Phosphatase 144 U/L (0-126) Total Protein 6.4 g/dl (6.3-8.2) Albumin 3.3 g/dl (3.5-5.0) Coagulation Test 12/22/18 16:58 Prothrombin Time 14.6 seconds Prothromb Time International Ratio 1.14 Activated Partial Thromboplast Time 34 seconds EKG/Imaging EKG Interpretation 12 lead EKG: Rhythm: Atrial fibrillation with a ventricular rate of 77 bpm [place]: normal QRS: Right bundle branch block ST segments: normal Imaging EXAMINATION: CT HEAD WITHOUT CONTRAST COMPARISON: None available HISTORY: Stroke alert. PROCEDURE: Noncontrast CT from the vertex through the skull base. One of the following dose optimization techniques was utilized in the performance of this exam: Automated exposure control; adjustment of the mA and/or kV according to the patient's size; or use of an iterative reconstruction technique. Specific details can be referenced in the facility's radiology CT exam operational policy. FINDINGS: Brain volume: Mild global volume loss. Hemorrhage/extra-axial fluid: None. Mass effect/midline shift/edema: None. Ischemia: Minimal chronic-appearing white matter change with no focal region of vaughan-white differentiation loss. Ventricles and basal cisterns: Within normal limits. Posterior fossa: Negative. Vessels: Atherosclerosis. Calvarium, skull base, and scalp: Negative. Visualized sinuses and orbits: Within normal limits. IMPRESSION: 1. No intracranial hemorrhage or mass effect. 2. No CT findings of acute ischemia. Noncontrast head CT results were discussed with Wendie Reynoso at 12/22/2018 5:18 PM. Report Dictated By: Ash Ny MD at 12/22/2018 5:10 PM Report E-Signed By: Ash Ny MD at 12/22/2018 5:18 PM Examination: MRI brain without contrast Comparison: CT same day. History: expressive aphasia Procedure: Multiplanar noncontrast MRI of the brain with T1, T2, FLAIR, DWI/ADC, and gradient sequences. FINDINGS: Brain volume: Mild global volume loss. Sagittal midline structures and craniocervical junction: Negative. Midline shift: None. Ventricles: Negative. Brain parenchyma: Diffusion weighted imaging: Negative. Gradient sequence: Negative. T2 and FLAIR images: Numerous small foci of signal alteration is nonspecific but most suggestive of chronic microvascular ischemic disease. No definite acute changes. Extra-axial spaces: Negative. Dural venous sinuses and major arterial flow voids: Better characterized on the earlier CTA. Calvarium: Negative. Mastoid air cells and paranasal sinuses: Negative. Surrounding soft tissues and orbits: Negative. IMPRESSION: 1. No hemorrhage or mass. 2. Mild chronic white matter disease. No acute ischemia. Report Dictated By: Ash Ny MD at 12/22/2018 8:20 PM Report E-Signed By: Ash Ny MD at 12/22/2018 8:28 PM Examination: CTA of the head and neck Comparison: Noncontrast head CT earlier the same day. History: Stroke alert. Procedure: Arterial phase imaging of the head and neck with 75 mL intravenous Isovue 370. Reconstruction of the source data set includes multiplanar 2D in the sagittal and coronal planes, and 3D reconstructed coronal slab MIP series. Percent stenosis is based on NASCET criteria. One of the following dose optimization techniques was utilized in the performance of this exam: Automated exposure control; adjustment of the mA and/or kV according to the patient's size; or use of an iterative reconstruction technique. Specific details can be referenced in the facility's radiology CT exam operational policy. Findings: CT head: As discussed on the earlier noncontrast head CT. CTA of the head and neck: Aortic arch: Mild atherosclerosis with a small amount of atherosclerotic plaque extending into the arch vessel origins. No stenosis. Right extracranial carotid system: Small amount of partially calcified plaque along the mid and distal common carotid and extending through the bifurcation into the proximal internal carotid artery. No luminal stenosis. Left extracranial carotid system: Minimal partially calcified plaque along the mid and distal common carotid artery. Small amount of density calcified plaque at the bifurcation and within the proximal internal carotid artery. No luminal stenosis. Vertebral arteries: Right vertebral artery dominance. Minimal calcified plaque at the origins of both vertebral arteries; no definite stenosis. Intracranial internal carotid arteries: Bilateral mild atherosclerosis. No stenosis. Anterior cerebral arteries: Negative. Anterior communicating artery is present. Middle cerebral arteries: Negative. Territorial branches are symmetric. Vertebrobasilar system and posterior cerebral arteries: Basilar arteries predominantly perfused by the dominant right vertebral artery with the left v ertebral artery extending into cerebellar branches. Posterior communicating arteries are not identified. Otherwise unremarkable. Dural venous sinuses: Limited evaluation due to the arterial phase of e nhancement. Cervical spine: C3-C4, C4-C5, C5-C6, and C6-C7 mild disc bulges with mild effacement of the anterior thecal sac. Minimal degenerative anterolisthesis at C7-T1. No acute vertebral body height loss or malalignment. Paranasal sinus and orbits: Negative. Prevertebral soft tissues: No acute findings. Infusion port. Multinodular thyroid. Visualized upper chest: No acute findings. 4.5 cm dilated main pulmonary artery. Coronary calcifications. IMPRESSION: 1. Head and neck mild atherosclerosis. No stenosis, occlusion, aneurysm, or dissection. 2. Cervical spine mild degenerative change as described above. 3. Dilated main pulmonary artery is suggestive of pulmonary artery hypertension. 4. Coronary calcifications. Results were discussed with ELLIOTT REYNOSO at 12/22/2018 6:11 PM. Report Dictated By: Ash Ny MD at 12/22/2018 5:59 PM Report E-Signed By: Ash Ny MD at 12/22/2018 6:16 PM ED Course/Re-evaluation ED Course Patient was admitted to an exam room, history and physical were obtained. Differential diagnoses were considered. On examination lungs are clear, heart was regular, abdomen soft nontender. Patient was having an expressive aphasia when he initially arrived. A stroke alert was called, patient was taken CT enhanced CT scan of the head done. Return to the room and did evaluate him, patient had good strength in all extremities. The tele-stroke was initiated. Patient was evaluated by neurology. The recommended going ahead and getting a CTA of the head and neck. If that showed a in obstruction the patient should be transferred down for clot removal. However if that was negative he recommended admitting the patient to the hospital for TIA versus small stroke workup. The CTA was done which showed no acute findings. I discussed the case with Dr. Archuleta, hospitalist, who requested that we go ahead and do the MRI here in the emergency room. The MRI was done which was negative. I discussed admission with him, which he agreed to admit the patient to finish the TIA workup. He did not feel that there would be much workup done, but was willing to monitor him overnight. I discussed this with the patient and his family and they verbalized understanding and agreement with plan. Decision to Disposition Date: Dec 22, 2018 Decision to Disposition Time: 20:31 Depart Departure Latest Vital Signs Vital Signs Date Time Temp Pulse Resp B/P (MAP) Pulse Ox O2 Delivery O2 Flow Rate FiO2 12/22/18 21:00 81 20 95 12/22/18 20:16 107/69 (82) 12/22/18 17:07 Nasal Cannula 2 Impression: Primary Impression: TIA (transient ischemic attack) Condition: Improved Disposition: Admitted from ER Referrals: BENITO REAL MD (PCP) ELLIOTT REYNOSO Dec 22, 2018 16:46
[2018-12-22 17:07] LABS: PLATELET COUNT, AUTOMATED 330 K/uL (150-450)
[2018-12-22 17:13] LABS: INR 1.14
--- NOTE | 2018-12-22 17:23 | RADIOLOGY IMAGING REPORT ---
FACILITY: [facility] PATIENT NAME: Myles Ricardo : 1950 MR: [id number] V: [id number] EXAM DATE: ORDERING PHYSICIAN: JD ROMERO TECHNOLOGIST: Location: [facility] Patient: Myles Ricardo : 1950 Visit/Account:[id number] Date of Sevice: 12/22/2018 EXAMINATION: CT HEAD WITHOUT CONTRAST COMPARISON: None available HISTORY: Stroke alert. PROCEDURE: Noncontrast CT from the vertex through the skull base. One of the following dose optimizat ion techniques was utilized in the performance of this exam: Automated exposure control; adjustment o f the mA and/or kV according to the patient's size; or use of an iterative reconstruction technique. Specific details can be referenced in the facility's radiology CT exam operational policy. FINDINGS: Brain volume: Mild global volume loss. Hemorrhage/extra-axial fluid: None. Mass effect/midline shift/edema: None. Ischemia: Minimal chronic-appearing white matter change with no focal region of vaughan-white differenti ation loss. Ventricles and basal cisterns: Within normal limits. Posterior fossa: Negative. Vessels: Atherosclerosis. Calvarium, skull base, and scalp: Negative. Visualized sinuses and orbits: Within normal limits. IMPRESSION: 1. No intracranial hemorrhage or mass effect. 2. No CT findings of acute ischemia. Noncontrast head CT results were discussed with Wendie Reynoso at 12/22/2018 5:18 PM. Report Dictated By: Ash Ny MD at 12/22/2018 5:10 PM Report E-Signed By: Ash Ny MD at 12/22/2018 5:18 PM WSN:[id number]
[2018-12-22] MEDS ORDERED: IOPAMIDOL 76% 100 ML INFUS BTL 100 ML ONE (17:25)
[2018-12-22] MEDS ORDERED: NS(*) 0.9% 50 ML BAG 50 ML ONE (17:26)
--- NOTE | 2018-12-22 18:01 | EKG ---
FACILITY: [facility] [place] PATIENT NAME: MONICA EUBANKS : [id number] MR: [id number] V: [id number] EXAM DATE: ORDERING PHYSICIAN: JD ROMERO TECHNOLOGIST: NURIS Test Reason : STROKE Blood Pressure : / mmHG Vent. Rate : 077 BPM Atrial Rate : 081 BPM P-R Int : 000 ms QRS Dur : 142 ms QT Int : 462 ms P-R-T Axes : 000 092 032 degrees QTc Int : 522 ms Atrial fibrillation Right bundle branch block Abnormal ECG Similar to previous EKGs Confirmed by VIDAL MAE ([id number]) on 12/22/2018 6:25:03 PM Referred By: PINO Confirmed By:VIDAL MAE
--- NOTE | 2018-12-22 18:20 | RADIOLOGY IMAGING REPORT ---
FACILITY: [facility] [place] PATIENT NAME: Myles Ricardo : 1950 MR: [id number] V: [id number] EXAM DATE: ORDERING PHYSICIAN: ELLIOTT PRINGLE TECHNOLOGIST: Location: [facility] Patient: Myles Ricardo : 1950 Visit/Account:[id number] Date of Sevice: 12/22/2018 Examination: CTA of the head and neck Comparison: Noncontrast head CT earlier the same day. History: Stroke alert. Procedure: Arterial phase imaging of the head and neck with 75 mL intravenous Isovue 370. Reconstruct ion of the source data set includes multiplanar 2D in the sagittal and coronal planes, and 3D reconst ructed coronal slab MIP series. Percent stenosis is based on NASCET criteria. One of the following dose optimization techniques was utilized in the performance of this exam: Autom ated exposure control; adjustment of the mA and/or kV according to the patient's size; or use of an i terative reconstruction technique. Specific details can be referenced in the facility's radiology C T exam operational policy. Findings: CT head: As discussed on the earlier noncontrast head CT. CTA of the head and neck: Aortic arch: Mild atherosclerosis with a small amount of atherosclerotic plaque extending into the ar ch vessel origins. No stenosis. Right extracranial carotid system: Small amount of partially calcified plaque along the mid and dista l common carotid and extending through the bifurcation into the proximal internal carotid artery. No luminal stenosis. Left extracranial carotid system: Minimal partially calcified plaque along the mid and distal common carotid artery. Small amount of density calcified plaque at the bifurcation and within the proximal i nternal carotid artery. No luminal stenosis. Vertebral arteries: Right vertebral artery dominance. Minimal calcified plaque at the origins of both vertebral arteries; no definite stenosis. Intracranial internal carotid arteries: Bilateral mild atherosclerosis. No stenosis. Anterior cerebral arteries: Negative. Anterior communicating artery is present. Middle cerebral arteries: Negative. Territorial branches are symmetric. Vertebrobasilar system and posterior cerebral arteries: Basilar arteries predominantly perfused by th e dominant right vertebral artery with the left vertebral artery extending into cerebellar branches. Posterior communicating arteries are not identified. Otherwise unremarkable. Dural venous sinuses: Limited evaluation due to the arterial phase of enhancement. Cervical spine: C3-C4, C4-C5, C5-C6, and C6-C7 mild disc bulges with mild effacement of the anterior thecal sac. Minimal degenerative anterolisthesis at C7-T1. No acute vertebral body height loss or mal alignment. Paranasal sinus and orbits: Negative. Prevertebral soft tissues: No acute findings. Infusion port. Multinodular thyroid. Visualized upper chest: No acute findings. 4.5 cm dilated main pulmonary artery. Coronary calcificati ons. IMPRESSION: 1. Head and neck mild atherosclerosis. No stenosis, occlusion, aneurysm, or dissection. 2. Cervical spine mild degenerative change as described above. 3. Dilated main pulmonary artery is suggestive of pulmonary artery hypertension. 4. Coronary calcifications. Results were discussed with ELLIOTT PRINGLE at 12/22/2018 6:11 PM. Report Dictated By: Ash Ny MD at 12/22/2018 5:59 PM Report E-Signed By: Ash Ny MD at 12/22/2018 6:16 PM WSN:[id number]
--- NOTE | 2018-12-22 18:21 | RADIOLOGY IMAGING REPORT ---
FACILITY: [facility] [place] PATIENT NAME: Myles Ricardo : 1950 MR: [id number] V: [id number] EXAM DATE: ORDERING PHYSICIAN: ELLIOTT PRINGLE TECHNOLOGIST: Location: [facility] Patient: Myles Ricardo : 1950 Visit/Account:[id number] Date of Sevice: 12/22/2018 Examination: CTA of the head and neck Comparison: Noncontrast head CT earlier the same day. History: Stroke alert. Procedure: Arterial phase imaging of the head and neck with 75 mL intravenous Isovue 370. Reconstruct ion of the source data set includes multiplanar 2D in the sagittal and coronal planes, and 3D reconst ructed coronal slab MIP series. Percent stenosis is based on NASCET criteria. One of the following dose optimization techniques was utilized in the performance of this exam: Autom ated exposure control; adjustment of the mA and/or kV according to the patient's size; or use of an i terative reconstruction technique. Specific details can be referenced in the facility's radiology C T exam operational policy. Findings: CT head: As discussed on the earlier noncontrast head CT. CTA of the head and neck: Aortic arch: Mild atherosclerosis with a small amount of atherosclerotic plaque extending into the ar ch vessel origins. No stenosis. Right extracranial carotid system: Small amount of partially calcified plaque along the mid and dista l common carotid and extending through the bifurcation into the proximal internal carotid artery. No luminal stenosis. Left extracranial carotid system: Minimal partially calcified plaque along the mid and distal common carotid artery. Small amount of density calcified plaque at the bifurcation and within the proximal i nternal carotid artery. No luminal stenosis. Vertebral arteries: Right vertebral artery dominance. Minimal calcified plaque at the origins of both vertebral arteries; no definite stenosis. Intracranial internal carotid arteries: Bilateral mild atherosclerosis. No stenosis. Anterior cerebral arteries: Negative. Anterior communicating artery is present. Middle cerebral arteries: Negative. Territorial branches are symmetric. Vertebrobasilar system and posterior cerebral arteries: Basilar arteries predominantly perfused by th e dominant right vertebral artery with the left vertebral artery extending into cerebellar branches. Posterior communicating arteries are not identified. Otherwise unremarkable. Dural venous sinuses: Limited evaluation due to the arterial phase of enhancement. Cervical spine: C3-C4, C4-C5, C5-C6, and C6-C7 mild disc bulges with mild effacement of the anterior thecal sac. Minimal degenerative anterolisthesis at C7-T1. No acute vertebral body height loss or mal alignment. Paranasal sinus and orbits: Negative. Prevertebral soft tissues: No acute findings. Infusion port. Multinodular thyroid. Visualized upper chest: No acute findings. 4.5 cm dilated main pulmonary artery. Coronary calcificati ons. IMPRESSION: 1. Head and neck mild atherosclerosis. No stenosis, occlusion, aneurysm, or dissection. 2. Cervical spine mild degenerative change as described above. 3. Dilated main pulmonary artery is suggestive of pulmonary artery hypertension. 4. Coronary calcifications. Results were discussed with ELLIOTT PRINGLE at 12/22/2018 6:11 PM. Report Dictated By: Ash Ny MD at 12/22/2018 5:59 PM Report E-Signed By: Ash Ny MD at 12/22/2018 6:16 PM WSN:[id number]
[2018-12-22] MEDS ORDERED: LORazepam 2 MG/ML VIAL IVP ONE (19:00)
--- NOTE | 2018-12-22 20:31 | RADIOLOGY IMAGING REPORT ---
FACILITY: [facility] PATIENT NAME: Myles Ricardo : 1950 MR: [id number] V: [id number] EXAM DATE: ORDERING PHYSICIAN: ELLIOTT PRINGLE TECHNOLOGIST: Location: [facility] Patient: Myles Ricardo : 1950 Visit/Account:[id number] Date of Sevice: 12/22/2018 Examination: MRI brain without contrast Comparison: CT same day. History: expressive aphasia Procedure: Multiplanar noncontrast MRI of the brain with T1, T2, FLAIR, DWI/ADC, and gradient sequenc es. FINDINGS: Brain volume: Mild global volume loss. Sagittal midline structures and craniocervical junction: Negative. Midline shift: None. Ventricles: Negative. Brain parenchyma: Diffusion weighted imaging: Negative. Gradient sequence: Negative. T2 and FLAIR images: Numerous small foci of signal alteration is nonspecific but most suggestive of chronic microvascular ischemic disease. No definite acute changes. Extra-axial spaces: Negative. Dural venous sinuses and major arterial flow voids: Better characterized on the earlier CTA. Calvarium: Negative. Mastoid air cells and paranasal sinuses: Negative. Surrounding soft tissues and orbits: Negative. IMPRESSION: 1. No hemorrhage or mass. 2. Mild chronic white matter disease. No acute ischemia. Report Dictated By: Ash Ny MD at 12/22/2018 8:20 PM Report E-Signed By: Ash Ny MD at 12/22/2018 8:28 PM WSN:[id number]
[2018-12-22 22:43] VITALS: BP 96/59
[2018-12-22] MEDS ORDERED: traMADol 50 MG TAB PO PRN (22:45)
[2018-12-22] MEDS ORDERED: FLUSH 10 ML SYR IVP PRN (22:45)
[2018-12-22] MEDS ORDERED: POTASSIUM CHL 20 MEQ TABCR PO ONE (22:45)
[2018-12-22] MEDS ORDERED: INSULIN HUM LISPRO 100 UN/ML 3 ML VIAL SUBQ PRN (22:55)
[2018-12-22] MEDS: APIXABAN 2.5 MG TABLET PO SCH (23:12)
--- NOTE | 2018-12-22 23:18 | History & Physical ---
History of Present Illness Chief Complaint Difficulty speaking History of Present Illness 68yo male with PMHx significant for type 2 DM, chronic a-fib, pancreatic cancer currently receiving chemotherapy. He and his report onset of difficulty communicating earlier today. It began while he was alone at [facility]. He apparently sent a couple on nonsensical texts to his . He then drove home and upon arrival his noted he was speaking in sentences, but they were completely incoherent. He does recall this and had significant frustration being unable to communicate. He denied any associated weakness/numbness/visual changes/difficulty swallowing. He was able to ambulate and drove the car without problems. He was evaluated in the ER. He was found to be in chronic a-fib. He states he has not missed any doses of his Eliquis 5mg BID. His CT scan did not show significant abnormalities. MRI of brain showed some possible small vessel i schemic changes, but no acute appearing infarcts/hemorrhage. CT angiography of head and neck did not show any significant stenoses/aneurysmal changes. His speaking improved during his stay in the ER and is essentially normal during this interview. He was recommended for admission. History Problems: (1) Pancreatic cancer Status: Chronic (2) Hypertension Status: Chronic (3) Insulin-requiring or dependent type II diabetes mellitus Status: Chronic (4) Atrial fibrillation Status: Chronic (5) CASANDRA on CPAP Status: Chronic (6) Hyperlipidemia Status: Chronic (7) Depression with anxiety Status: Chronic (8) Chronic anticoagulation Status: Chronic (9) RBBB Status: Chronic (10) Venous insufficiency Status: Chronic (11) Gout Status: Chronic (12) Obesity Status: Chronic (13) History of biliary stent insertion Status: Chronic Home Meds Active Scripts Tramadol Hcl (TRAMADOL HCL) 50 Mg Tablet, 50-100 MG PO Q 8H for PAIN, #60 TAB 1 Refill Prov:DOM VILCHIS APRN,HOME MANAGER 12/17/18 Apixaban (ELIQUIS) 5 Mg Tablet, 5 MG PO BID, #60 TAB 0 Refills Prov:JESSIE REAL MD 12/04/18 Meloxicam (MELOXICAM) 15 Mg Tablet, 15 MG PO QDAY, #90 TAB 3 Refills Prov:JESSIE REAL MD 11/30/18 Tramadol Hcl (TRAMADOL HCL) 50 Mg Tablet, 50 MG PO Q4-6H, #30 TAB Prov:JESSIE REAL MD 11/28/18 Insulin Aspart 100 Un/Ml Pen (NOVOLOG FLEXPEN) 100 Unit/1 Ml Insuln.pen, 10-45 UNIT SQ TID, #6 BOX 3 Refills Sliding Scale: <100=10 units <200=25 units >300=35 units >400=40 units >500=45 units Prov:JESSIE REAL MD 11/28/18 Atorvastatin Calcium (ATORVASTATIN CALCIUM) 40 Mg Tablet, 1 TAB PO QDAY, #90 TAB 0 Refills Prov:JESSIE REAL MD 11/19/18 Omeprazole (OMEPRAZOLE) 20 Mg Capsule.dr, 1 CAP PO QDAY, #30 CAP 5 Refills Prov:JESSIE REAL MD 11/09/18 Insulin Glargine,Hum.rec.anlog (Toujeo Solostar) 300 Unit/1 Ml Insuln.pen, 13 UNITS SUBQ QHS, #3 BOX 3 Refills Increase by 2 units every 2 days to keep fasting blood sugars between 80-120 Prov:JESSIE REAL MD 10/03/18 Fluoxetine Hcl (PROZAC) 40 Mg Capsule, 40 MG PO QDAY, #90 CAPSULE 3 Refills Prov:JESSIE REAL MD 05/04/18 Allopurinol (ZYLOPRIM) 300 Mg Tablet, 1 TAB PO DAILY, #90 TAB 3 Refills Please establish care with Dr. Real on 03/09/18 for further refills. Prov:JESSIE REAL MD 03/09/18 Reported Medications Potassium Chloride (POTASSIUM CHLORIDE) 20 Meq Tab.er.prt, 20 MEQ PO BID 12/14/18 Dicyclomine Hcl (DICYCLOMINE HCL) 20 Mg Tablet, 20 MG PO DAILY PRN for PRN 11/28/18 Loperamide Hcl (LOPERAMIDE) 2 Mg Capsule, 2 MG PO PRN for DIARRHEA, CAPSULE Take 2 capsules at the first sign of diarrhea, then 1 capsule Q2 hours until diarrhea free for 12 hrs 11/09/18 Ondansetron Hcl (ONDANSETRON HCL) 4 Mg Tablet, 8 MG PO Q8H PRN for NAUSEA, TAB 11/09/18 Prochlorperazine Maleate (Compazine) 10 Mg Tablet, 10 MG PO Q6-8H PRN for NAUSEA 11/09/18 Metoprolol Succinate (METOPROLOL SUCCINATE) 100 Mg Tab.er.24h, 1 TAB PO QDAY, TAB 10/22/18 Cholecalciferol (Vitamin D3) (VITAMIN D) 1,000 Unit Tablet, 1000 UNIT PO DAILY 08/06/18 [cpap] No Conflict Check, QHS 03/09/18 Allergies: Coded Allergies: doxycycline (Verified Allergy, Mild, states causes uncontrolled bleeding, 10/11/18) Penicillins (Verified Allergy, Unknown, 10/11/18) EHR CONVERSION Patient History: FH: diabetes mellitus FATHER, , Age:78 BROTHER OR SISTER FH: heart disease FATHER, , Age:78 FH: pancreatic cancer Aunt FH: prostate cancer FATHER, , Age:78 FH: stroke FATHER, , Age:78 MOTHER, , Age:88 BROTHER OR SISTER Smoking Status: Never Smoker Exposure to Second Hand Smoke?: Yes (both parents ) Hx Alcohol Use: No Social Drug Use: Never Review of Systems Constitutional: Weight Loss; No Fever, No Chills Neurological: Confusion; No Syncope Eyes: No Vision Change, No Loss of Vision ENT: No Hearing Loss Cardiovascular: No Chest Pain, No Palpitations Respiratory: No Shortness of Breath Gastrointestinal: No Nausea, No Vomiting Genitourinary: No Dysuria Musculoskeletal: Pain (coccygeal pain after a fall) Exam Vital Signs Vital Signs Date Time Temp Pulse Resp B/P (MAP) Pulse Ox O2 Delivery O2 Flow Rate FiO2 12/22/18 22:43 98.8 89 16 96/59 (71) 96 Nasal Cannula 2.0 General Appearance: Alert, Awake, No Acute Distress Neuro: No Gross deficits, Other (motor exam grossly normal/speech is fluent) Eyes: PERRLA ENT: Oropharynx Clear, Other (tongue protrudes midline) Neck: No Masses, Other (no bruits noted) Cardiovascular: Other (Irregular with systolic murmur) Respiratory: Clear to Auscultation Chest: No Tenderness, Other (chemoport right upper chest) GI: Other (obese/soft/BS present) Extremities: Warm, Perfused, Edema Integumentary: Other (chronic venous stasis changes/large amounts of excess skin) Psych: Alert & Oriented X3 Medical Decision Making Data Points Result Diagram: 12/22/18 1658 12/22/18 1658 Item Value Date Time Albumin 3.3 g/dl L 12/22/188 Total Protein 6.4 g/dl 12/22/188 Alkaline Phosphatase 144 U/L H 12/22/18 1658 Alanine Aminotransferase (ALT/SGPT) 25 U/L 12/22/18 1658 Aspartate Amino Transf (AST/SGOT) 20 U/L 12/22/188 Calcium Level 8.5 mg/dl 12/22/188 Total Bilirubin 0.6 mg/dl 12/22/18 1658 Prothrombin Time 14.6 seconds H 12/22/188 Prothromb Time International Ratio 1.14 12/22/181657 Activated Partial Thromboplast Time 34 seconds 12/22/181657 EKG / Imaging EKG Interpretation PATIENT NAME: MYLES RICARDO : [id number] MR: [id number] V: [id number] EXAM DATE: ORDERING PHYSICIAN: JD ROMERO TECHNOLOGIST: Test Reason : STROKE Blood Pressure : / mmHG Vent. Rate : 077 BPM Atrial Rate : 081 BPM P-R Int : 000 ms QRS Dur : 142 ms QT Int : 462 ms P-R-T Axes : 000 092 032 degrees QTc Int : 522 ms Atrial fibrillation Right bundle branch block Abnormal ECG Similar to previous EKGs Confirmed by VIDAL MAE ([id number]) on 12/22/2018 6:25:03 PM Referred By: PINO Confirmed By:VIDAL MAE Imaging PATIENT NAME: Myles Ricardo : 1950 MR: [id number] V: [id number] EXAM DATE: [id number] ORDERING PHYSICIAN: ELLIOTT REYNOSO TECHNOLOGIST: Location: [facility] [place] Patient: Myles Ricardo : 1950 Visit/Account:[id number] Date of Sevice: 12/22/2018 Examination: MRI brain without contrast Comparison: CT same day. History: expressive aphasia Procedure: Multiplanar noncontrast MRI of the brain with T1, T2, FLAIR, DWI/ADC, and gradient sequences. FINDINGS: Brain volume: Mild global volume loss. Sagittal midline structures and craniocervical junction: Negative. Midline shift: None. Ventricles: Negative. Brain parenchyma: Diffusion weighted imaging: Negative. Gradient sequence: Negative. T2 and FLAIR images: Numerous small foci of signal alteration is nonspecific but most suggestive of chronic microvascular ischemic disease. No definite acute changes. Extra-axial spaces: Negative. Dural venous sinuses and major arterial flow voids: Better characterized on the earlier CTA. Calvarium: Negative. Mastoid air cells and paranasal sinuses: Negative. Surrounding soft tissues and orbits: Negative. IMPRESSION: 1. No hemorrhage or mass. 2. Mild chronic white matter disease. No acute ischemia. Report Dictated By: Ash Ny MD at 12/22/2018 8:20 PM Report E-Signed By: Ash Ny MD at 12/22/2018 8:28 PM WSN:[id number] PATIENT NAME: Myles Ricardo : 1950 MR: [id number] V: [id number] EXAM DATE: [id number] ORDERING PHYSICIAN: ELLIOTT REYNOSO TECHNOLOGIST: Location: [facility] [place] Patient: Myles Ricardo : 1950 Visit/Account:[id number] Date of Sevice: 12/22/2018 Examination: CTA of the head and neck Comparison: Noncontrast head CT earlier the same day. History: Stroke alert. Procedure: Arterial phase imaging of the head and neck with 75 mL intravenous Isovue 370. Reconstruction of the source data set includes multiplanar 2D in the sagittal and coronal planes, and 3D reconstructed coronal slab MIP series. Percent stenosis is based on NASCET criteria. One of the following dose optimization techniques was utilized in the performance of this exam: Automated exposure control; adjustment of the mA and/or kV according to the patient's size; or use of an iterative reconstruction technique. Specific details can be referenced in the facility's radiology CT exam operational policy. Findings: CT head: As discussed on the earlier noncontrast head CT. CTA of the head and neck: Aortic arch: Mild atherosclerosis with a small amount of atherosclerotic plaque extending into the arch vessel origins. No stenosis. Right extracranial carotid system: Small amount of partially calcified plaque along the mid and distal common carotid and extending through the bifurcation into the proximal internal carotid artery. No luminal stenosis. Left extracranial carotid system: Minimal partially calcified plaque along the mid and distal common carotid artery. Small amount of density calcified plaque at the bifurcation and within the proximal internal carotid artery. No luminal stenosis. Vertebral arteries: Right vertebral artery dominance. Minimal calcified plaque at the origins of both vertebral arteries; no definite stenosis. Intracranial internal carotid arteries: Bilateral mild atherosclerosis. No stenosis. Anterior cerebral arteries: Negative. Anterior communicating artery is present. Middle cerebral arteries: Negative. Territorial branches are symmetric. Vertebrobasilar system and posterior cerebral arteries: Basilar arteries predominantly perfused by the dominant right vertebral artery with the left vertebral artery extending into cerebellar branches. Posterior communicating arteries are not identified. Otherwise unremarkable. Dural venous sinuses: Limited evaluation due to the arterial phase of enhancement. Cervical spine: C3-C4, C4-C5, C5-C6, and C6-C7 mild disc bulges with mild effacement of the anterior thecal sac. Minimal degenerative anterolisthesis at C7-T1. No acute vertebral body height loss or malalignment. Paranasal sinus and orbits: Negative. Prevertebral soft tissues: No acute findings. Infusion port. Multinodular thyroid. Visualized upper chest: No acute findings. 4.5 cm dilated main pulmonary artery. Coronary calcifications. IMPRESSION: 1. Head and neck mild atherosclerosis. No stenosis, occlusion, aneurysm, or dissection. 2. Cervical spine mild degenerative change as described above. 3. Dilated main pulmonary artery is suggestive of pulmonary artery hypertension. 4. Coronary calcifications. Results were discussed with ELLIOTT REYNOSO at 12/22/2018 6:11 PM. Report Dictated By: Ash Ny MD at 12/22/2018 5:59 PM Report E-Signed By: Ash Ny MD at 12/22/2018 6:16 PM WSN:[id number] PATIENT NAME: Myles Ricardo : 1950 MR: [id number] V: [id number] EXAM DATE: ORDERING PHYSICIAN: JD ROMERO TECHNOLOGIST: Location: [facility] [place] Patient: Myles Ricardo : 1950 Visit/Account:[id number] Date of Sevice: 12/22/2018 EXAMINATION: CT HEAD WITHOUT CONTRAST COMPARISON: None available HISTORY: Stroke alert. PROCEDURE: Noncontrast CT from the vertex through the skull base. One of the following dose optimization techniques was utilized in the performance of this exam: Automated exposure control; adjustment of the mA and/or kV according to the patient's size; or use of an iterative reconstruction technique. Specific details can be referenced in the facility's radiology CT exam operational policy. FINDINGS: Brain volume: Mild global volume loss. Hemorrhage/extra-axial fluid: None. Mass effect/midline shift/edema: None. Ischemia: Minimal chronic-appearing white matter change with no focal region of vaughan-white differentiation loss. Ventricles and basal cisterns: Within normal limits. Posterior fossa: Negative. Vessels: Atherosclerosis. Calvarium, skull base, and scalp: Negative. Visualized sinuses and orbits: Within normal limits. IMPRESSION: 1. No intracranial hemorrhage or mass effect. 2. No CT findings of acute ischemia. Noncontrast head CT results were discussed with Wendie Reynoso at 12/22/2018 5:18 PM. Report Dictated By: Ash Ny MD at 12/22/2018 5:10 PM Report E-Signed By: Ash Ny MD at 12/22/2018 5:18 PM WSN:[id number] Assessment and Plan Problems: (1) Expressive aphasia Status: Acute Assessment & Plan: Now resolved. No definite infarcts seen on CT or MRI. No hemorrhage. The atrial fibrillation certainly increases his risk for an event. Will continue his Eliquis 5mg PO BID. CT angiography is unremarkable. Will recheck echocardiogram. Will monitor on telemetry as well. (2) Insulin-requiring or dependent type II diabetes mellitus Status: Chronic Assessment & Plan: He has been managed with low dose Toujeo and SSI Novolog. Will continue with ADA diet, monitor glucoses, use low dose Lantus, and SSI as needed. (3) Hypertension Status: Chronic Assessment & Plan: Will continue the metoprolol and monitor BPs. (4) Atrial fibrillation *Optional Permanent Comment*: Chronic asymptomatic. [id number] score of 2 Last Edited By: Jessie Real MD on May 14, 2018 11:01 Status: Chronic Assessment & Plan: Chronic. Continue the metoprolol for help with rate control and Eliquis for CVA prophylaxis. (5) Pancreatic cancer Status: Chronic Assessment & Plan: He is currently under care of Dr. Patterson and receiving chemotherapy in the [facility]. Copies to: JESSIE REAL MD; NICOLE PATTERSON MD ; Venous Thromboembolism Antithrombotics Is Pt On Any Antithrombotics?: Yes Exam Sepsis Risk: No Definite Risk VIDAL MAE MD Dec 22, 2018 23:18
[2018-12-23 03:26] VITALS: BP 89/54
[2018-12-23 06:16] LABS: PLATELET COUNT, AUTOMATED 265 K/uL (150-450)
[2018-12-23 07:37] VITALS: BP 93/47
[2018-12-23] MEDS ORDERED: POTASSIUM CHL 20 MEQ TABCR PO SCH (08:00)
[2018-12-23] MEDS: APIXABAN 2.5 MG TABLET PO SCH (08:27)
[2018-12-23] MEDS ORDERED: METOPROLOL SUCC XL 25 MG TABCR PO SCH (09:00)
[2018-12-23] MEDS ORDERED: FLUoxetine HCL 20 MG CAP PO SCH (09:00)
[2018-12-23] MEDS ORDERED: ATORVASTATIN 40 MG TAB PO SCH (09:00)
[2018-12-23] MEDS ORDERED: PANTOPRAZOLE SOD 40 MG TABEC PO SCH (09:00)
[2018-12-23] MEDS ORDERED: POTASSIUM CHL 10 MEQ TABCR PO ONE (09:20)
--- NOTE | 2018-12-23 09:40 | Hospitalist Depart ---
Discharge Summary Reason for Hosp/Final Diag: (1) Expressive aphasia Status: Acute Hospital Course & Plan: He did have an episode of garbled speech, but no other deficits. His symptoms resolved spontaneously. A CT scan and MRI of the head showed only chronic changes. (2) Insulin-requiring or dependent type II diabetes mellitus Status: Chronic Hospital Course & Plan: He has been managed with low dose Toujeo and SSI Novolog. (3) Hypertension Status: Chronic Hospital Course & Plan: He is on chronic treatment with metoprolol. (4) Atrial fibrillation *Optional Permanent Comment*: Chronic asymptomatic. [id number] score of 2 Last Edited By: Jessie Real MD on May 14, 2018 11:01 Status: Chronic Hospital Course & Plan: He is on chronic treatment with Eliquis. (5) Pancreatic cancer Status: Chronic Hospital Course & Plan: He is currently under care of Dr. Patterson and receiving chemotherapy in the [facility]. Departure Latest Vital Signs Vital Signs 12/23/18 07:37 Temp 98.6 Pulse 81 Resp 20 B/P (MAP) 93/47 (62) Pulse Ox 98 O2 Delivery Nasal Cannula O2 Flow Rate 2.0 Weight (Pounds): 200 Result Diagram: 12/23/1855512/23/18555 Condition: Improved Discharge: Home, Self Care Discharge Instructions Home Meds Active Scripts Apixaban (ELIQUIS) 5 Mg Tablet, 5 MG PO BID, #60 TAB 0 Refills Prov:JESSIE REAL MD 12/04/18 Meloxicam (MELOXICAM) 15 Mg Tablet, 15 MG PO QDAY, #90 TAB 3 Refills Prov:JESSIE REAL MD 11/30/18 Tramadol Hcl (TRAMADOL HCL) 50 Mg Tablet, 50 MG PO Q4-6H, #30 TAB Prov:JESSIE REAL MD 11/28/18 Insulin Aspart 100 Un/Ml Pen (NOVOLOG FLEXPEN) 100 Unit/1 Ml Insuln.pen, 10-45 UNIT SQ TID, #6 BOX 3 Refills Sliding Scale: <100=10 units <200=25 units >300=35 units >400=40 units >500=45 units Prov:JESSIE REAL MD 11/28/18 Atorvastatin Calcium (ATORVASTATIN CALCIUM) 40 Mg Tablet, 1 TAB PO QDAY, #90 TAB 0 Refills Prov:JESSIE REAL MD 11/19/18 Omeprazole (OMEPRAZOLE) 20 Mg Capsule.dr, 1 CAP PO QDAY, #30 CAP 5 Refills Prov:JESSIE RELA MD 11/09/18 Insulin Glargine,Hum.rec.anlog (Toujeo Solostar) 300 Unit/1 Ml Insuln.pen, 13 UNITS SUBQ QHS, #3 BOX 3 Refills Increase by 2 units every 2 days to keep fasting blood sugars between 80-120 Prov:JESSIE REAL MD 10/03/18 Fluoxetine Hcl (PROZAC) 40 Mg Capsule, 40 MG PO QDAY, #90 CAPSULE 3 Refills Prov:JESSIE REAL MD 05/04/18 Allopurinol (ZYLOPRIM) 300 Mg Tablet, 1 TAB PO DAILY, #90 TAB 3 Refills Please establish care with Dr. Real on 03/09/18 for further refills. Prov:JESSIE REAL MD 03/09/18 Reported Medications Potassium Chloride (POTASSIUM CHLORIDE) 20 Meq Tab.er.prt, 20 MEQ PO BID 12/14/18 Dicyclomine Hcl (DICYCLOMINE HCL) 20 Mg Tablet, 20 MG PO DAILY PRN for PRN 11/28/18 Loperamide Hcl (LOPERAMIDE) 2 Mg Capsule, 2 MG PO PRN for DIARRHEA, CAPSULE Take 2 capsules at the first sign of diarrhea, then 1 capsule Q2 hours until diarrhea free for 12 hrs 11/09/18 Ondansetron Hcl (ONDANSETRON HCL) 4 Mg Tablet, 8 MG PO Q8H PRN for NAUSEA, TAB 11/09/18 Prochlorperazine Maleate (Compazine) 10 Mg Tablet, 10 MG PO Q6-8H PRN for NAUSEA 11/09/18 Metoprolol Succinate (METOPROLOL SUCCINATE) 100 Mg Tab.er.24h, 1 TAB PO QDAY, TAB 10/22/18 Cholecalciferol (Vitamin D3) (VITAMIN D) 1,000 Unit Tablet, 1000 UNIT PO DAILY 08/06/18 [cpap] No Conflict Check, QHS 03/09/18 Discontinued Scripts Tramadol Hcl (TRAMADOL HCL) 50 Mg Tablet, 50-100 MG PO Q 8H for PAIN, #60 TAB 1 Refill Prov:DOM VILCHIS APRN,APPLICATION SYSTEMS ADMINISTRATOR 12/17/18 Diet: Diabetic Activity: As Tolerated Copies to: NICOLE PATTERSON MD ; Venous Thromboembolism Antithrombotics Is Pt On Any Antithrombotics?: Yes AMILCAR HECTOR DO Dec 23, 2018 09:40
[2018-12-23] MEDS ORDERED: INSULIN GLARGINE 100 U/ML 3 ML PEN SUBQ SCH (21:00)
== END 2018-12-23 09:35 | disposition home or self-care (01) ==
LOC: ER 16:55 → OBSVTOIN 21:09 → MED 21:09 → UNDOADMIN 21:09 → INTOOBSV 21:09 → UNDOADMOB 21:09 → UNDODISOB 12-23 10:52
PROVIDERS: ADMIT Internal Medicine; ATTEND Internal Medicine
DX: G45.9 Transient cerebral ischemic attack, unspecified (principal); I48.91 Unspecified atrial fibrillation; Z79.01 Long term (current) use of anticoagulants; E11.9 Type 2 diabetes mellitus without complications; R47.01 Aphasia; I10 Essential (primary) hypertension
CPT/HCPCS: 36415; 70450; 70496; 70498; 70551; 85025; 85610; 85730; 93005; 96372; 96374; 99284; C8929; G0378; J1815; J2060; J7050; Q9957; Q9967; 82040; 82247; 82310; 82374; 82435; 82565; 82947; 84075; 84132; 84155; 84295; 84450; 84460; 84520

== ENCOUNTER → 2019-01-07 | Outpatient (CLI) | payer OTHER ==
[~2019-01-07] MED LIST changes: +ACET-1966 PO; +FURO-45 PO; +GADOBENATE 529MG/1ML 15ML VIAL IVP ONE; +MAGN400T52 PO; +POTA-28 PO
--- NOTE | 2019-01-07 16:32 | RADIOLOGY IMAGING REPORT ---
FACILITY: [facility] [place] PATIENT NAME: Myles Ricardo : 1950 MR: [id number] V: [id number] EXAM DATE: ORDERING PHYSICIAN: JD MATSON TECHNOLOGIST: Location: [facility] [place] Patient: Myles Ricardo : 1950 Visit/Account:[id number] Date of Sevice: 01/07/2019 EXAMINATION: MR SPINE LUMBAR W/ & W/O CON INDICATION: Low back pain, pancreatic cancer COMPARISON: CT 10/11/2018 TECHNIQUE: Multiplane MR imaging was performed through the lumbar spine without and with contrast. 15 ml multihance injected. FINDINGS: Vertebral bodies and posterior elements: New likely subacute L2 wedge compression fracture with appro ximate 40% vertebral body height loss. New likely subacute L4 wedge compression fracture with approxi mate 25% vertebral body height loss. Conus position/signal: Normal Marrow signal: T12 benign vertebral body hemangioma. Linear enhancing marrow edema within the upper L 4 vertebral body related to the fracture. Mild enhancing marrow edema throughout the L2 vertebral bod y related to the fracture. No discrete L2 vertebral body metastasis. Extraspinal structures including psoas muscles/paraspinal soft tissues: Normal L1-2: Minimal disc bulge, no canal narrowing, no significant foraminal narrowing. L2-3: Small disc protrusion, slight right lateral recess narrowing, mild left and moderate right fora jason narrowing. L3-4: Posterior disc annular fissure. Posterior disc protrusion eccentric to the left measures approx imately 7.5 mm AP dimension. Prominence of posterior epidural space fat. Moderate to severe thecal sa c narrowing and left greater than right lateral recess narrowing. Moderate bilateral foraminal narrow ing. L4-5: Moderate facet arthropathy, slight anterolisthesis of L4 on L5, small disc protrusion, ligament um flavum thickening and prominence of posterior epidural space fat. Moderate to severe thecal sac na rrowing. Moderate to severe bilateral foraminal narrowing. L5-S1: Small disc protrusion, no canal or significant lateral recess narrowing. Moderate bilateral fo raminal narrowing. IMPRESSION: 1. Likely subacute L2 and L4 wedge compression fractures with 40% L2 vertebral body height loss and 2 5% L4 vertebral body height loss. Marrow edema throughout the L2 vertebral body related to the fracture. No discrete L2 vertebral body metastasis. These may represent benign insufficiency fractures. Given history of pancreatic cancer follow-up MR w ithout and with contrast should be considered in 1-2 months to exclude the possibility of underlying metastatic disease particularly at L2. 2. Moderate to severe L3-4 and L4-5 thecal sac narrowing secondary to the constellation of chronic/de generative findings described above. 3. Multilevel foraminal narrowing, see level by level comments above. Report Dictated By: Adebayo Lombardo MD at 01/07/2019 4:17 PM Report E-Signed By: Adebayo Lombardo MD at 01/07/2019 4:28 PM WSN:[id number]
== END ==
LOC: MRI 13:52
PROVIDERS: ATTEND Nurse Practitioner
DX: C25.0 Malignant neoplasm of head of pancreas (principal); S32.010A Wedge compression fracture of first lumbar vertebra, initial encounter for closed fracture
CPT/HCPCS: 72158; A9577

== ENCOUNTER 2019-01-16 14:30 | Outpatient (RCR) | payer OTHER ==
[2018-10-22 13:53] VITALS: BP 107/56
[2018-10-22 14:42] LABS: PLATELET COUNT, AUTOMATED 256 K/uL (150-450)
[2018-10-25 15:21] VITALS: BP 101/64
--- NOTE | 2018-10-29 03:02 | ONCOLOGY CONSULTATION ---
EVENT DATE: October 22, 2018 CHIEF COMPLAINT/REASON FOR VISIT Mr. Ricardo is a 68-year-old gentleman with unresectable pancreatic cancer, adenocarcinoma stage IIB (T3 N1 M0), who presents for consultation. HISTORY OF PRESENT ILLNESS Mr. Ricardo presented last month with weight loss, jaundice, and acute kidney injury. A CT scan was done just before , which showed a large pancreatic head mass measuring 5 x 4.4 cm x 5.5 cm, with possible invasion in the duodenum that encased the SMA, GDA, mesenteric vessels, and near occlusion of the SMV. It was noted that the distal common bile duct and pancreatic duct were both obstructed as well. At presentation, his creatinine was 6, with evidence of adrenal insufficiency as well. His CA19-9 was 3010. He was admitted and hospitalized at [facility]. An ERCP was attempted on October 04, 2018, without success, and thus the placement of an internal/external biliary drainage catheter was done on the . Since that time, his bilirubin has been improving. We were able to place a biliary stent on October 16 by IR. The patient was overall healthy prior to this last month, when he developed these symptoms, likely coinciding with the development of obstruction. He had a biliary drain placed that has now been internalized. The wound where the drain was in place is healing well. He understands that at this time his disease is unresectable. It may never become resectable, though we are going to attempt aggressive chemotherapy as soon as his bilirubin reaches 3 as it continues to improve, hopefully in the next few days. PAST MEDICAL HISTORY 1. Diabetes. 2. Hyperlipidemia. 3. Hypertension. 4. Obstructive sleep apnea. 5. Gout. 6. Locally advanced pancreatic cancer. MEDICATION LIST 1. Insulin. 2. Spironolactone 50 mg daily. 3. Lipitor 40 mg daily. 4. Potassium chloride 40 mEq daily. 5. Fluoxetine 40 mg daily. 6. Allopurinol 300 mg daily. 7. Vitamin D3. 8. Metoprolol, unknown strength once a day. 9. Ibuprofen as needed. FAMILY HISTORY Remarkable for cancer in the family, mainly GI. Given his high family history risk, I recommended consideration of genetic counseling, but the patient declines at this time. He may consider it in the future. SOCIAL HISTORY Patient is and has presented with his and daughter today. 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 REVIEW OF SYSTEMS CONSTITUTIONAL: No fevers or chills. Positive weight change and fatigue. HEENT: No headache or vision changes. CARDIOVASCULAR: No chest pain, dyspnea on exertion, or edema. RESPIRATORY: No shortness of breath, wheeze, or cough. He does have sleep apnea. GASTROINTESTINAL: His GI symptoms are improving. His bilirubin is improving. GENITOURINARY: No dysuria or hematuria. MUSCULOSKELETAL: No weakness or joint pain. PSYCHIATRIC: No anxiety or depression. Currently he is on antidepressant. ENDOCRINE: No heat or cold intolerance. SKIN: No concerning rashes or lesions. The 14-point review of systems is otherwise negative. PHYSICAL EXAMINATION VITAL SIGNS: Blood pressure 107/56, pulse 82, respiratory rate 16, temperature 98.1 Fahrenheit, oxygen saturation 97% on room air. Height 174.5 cm, weight 106 kg, pain 0/10, fatigue 6/10. Low fall risk. GENERAL: Stable condition, resting comfortably in the chair. HEENT: Mild jaundice and scleral icterus present, and I believe it is slightly improved but still present. ABDOMEN: Soft. Minimal distention. No profound ascites. His former biliary drain, which is now internalized, is healing well. No appreciable masses of the liver or elsewhere. EXTREMITIES: No clubbing, cyanosis, or significant edema. Remainder of physical exam otherwise unremarkable. IMPRESSION/REPORT/PLAN Mr. Ricardo is a pleasant 68-year-old gentleman with locally advanced pancreatic cancer (T2 N1) with unresectable disease. We plan for palliative- intent chemotherapy with the hope that he may become resectable and be able to pursue surgery in the future. I expressed to him and the family that I am worried that this may not be possible, but we will get scans after two cycles to assess further. If he is improving, we may get scans again after four cycles. Radiation therapy could be used for palliation as well. However, we would like to utilize chemotherapy alone at this time. We discussed gem-Abraxane versus FOLFIRINOX. We would like to be as aggressive as tolerated, and if his bilirubin improves to less than 3, we can proceed with FOLFIRINOX with dose- reduced irinotecan at that point. If his bilirubin increases further, we may increase the dose of irinotecan. We briefly discussed potential side effects including myelosuppression, alopecia, heart or liver or kidney issues. He will receive chemotherapy education for more detail as well. Answered all of their many questions today. We will begin with FOLFIRINOX hopefully within the week as his bilirubin continues to improve now that he has the internalized biliary stent/drain. We had an extensive discussion today about the natural history, diagnosis, and treatment options for pancreatic cancer. Answered all of their questions today, and I will see them at least monthly when I come to [place]. BILLING New patient, level 5. Total time 60 minutes, counseling time 45 minutes. MTDD
[2018-11-01 15:19] VITALS: BP 106/67
[2018-11-08 15:08] VITALS: BP 99/66
--- NOTE | 2018-11-09 10:42 | ONCOLOGY CHEMO TEACHING ---
EVENT DATE: November 09, 2018 DIAGNOSIS Stage IIB (T3 N1 M0) pancreatic cancer, adenocarcinoma. The patient, his and daughter are seen today for chemotherapy teaching. A total of 60 minutes was spent with them, 100% of which was [id number] counseling. HISTORY OF PRESENT ILLNESS Patient is a 68-year old male who presented in September with weight loss, jaundice and acute kidney injury. He was then diagnosed with pancreatic cancer. He had significant jaundice and biliary stent was placed. Total bilirubin has been decreasing. He feels fairly well, although is fatigued. He is anxious to get started on treatment and will begin this on November 12, 2018. ONCOLOGY HISTORY Patient is a 68-year old male who presented in September 2018 with weight loss, jaundice and acute kidney injury. CT scan showed a large pancreatic head mass measuring 5 x 4.4 x 5.5 cm with possible invasion in the duodenum that encased the SMA, GDA, mesenteric vessels and near occlusion of the SMV. The distal common bile duct and pancreatic duct were both obstructed. He was noted to have a creatinine of 6 with evidence of adrenal insufficiency. CA 19-9 was 3,010. ERCP was attempted on October 04, 2018 without success. He had a biliary stent placed on October 16, 2018. Total bilirubin has been slowly decreasing. He will begin treatment with FOLFIRINOX on November 12, 2018. PAST MEDICAL HISTORY 1. Diabetes. 2. Hyperlipidemia. 3. Hypertension. 4. Obstructive sleep apnea. 5. Gout. 6. Locally advanced pancreatic cancer, September 2018. FAMILY HISTORY Remarkable for mainly GI cancers in his family. Patient deferred genetic testing at this time. SOCIAL HISTORY Patient is . They have one grown daughter. 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 MEDICATIONS 1. Toujeo. 2. NovoLog. 3. Spironolactone 50 mg daily. 4. Lipitor 40 mg daily. 5. Potassium 40 mEq 2 q.d. 6. Fluoxetine 40 mg daily. 7. Allopurinol 300 mg daily. 8. Vitamin D3. 9. Metoprolol 50 mg daily. ALLERGIES Penicillin and doxycycline. DISCUSSION 1. A total of 60 minutes was spent in counseling today, 100% of which was face to face. At today's chemotherapy teaching session we discussed his diagnosis as well as the planned chemotherapy regimen and toxicities associated with 5-FU, oxaliplatin and irinotecan. Handouts of these drugs were provided and reviewed in detail. 2. Side effects and toxicities of chemotherapy agents included, but were not limited to: A. Bone marrow suppression, specifically neutropenia. He is instructed to contact our offices with any signs of infection. CBC will be monitored routinely. We discussed common sense approaches including routine hand washing and avoidance of crowds/sick people if neutropenic. B. GI side effects. Discussed the possibility of nausea, vomiting, diarrhea and constipation. He will receive IV antiemetics and will be prescribed antiemetics for home use. If he were to have diarrhea, recommended Imodium. If he were to have constipation, recommended Senna-S or MiraLax routinely. Further interventions will be made based on side effects. C. side effects. Discussed the importance of adequate hydration (minimum 8 cups of fluid per day) and emptying the bladder on a regular basis. IV hydration can be scheduled as needed. D. Mouth sores. Recommended salt water or baking soda gargles as needed. E. Skin toxicity. Discussed that chemotherapy was very drying to the skin and mucous membranes. Recommended routine moisturizing as well as sun protection. F. Neurotoxicity. Discussed symptoms of peripheral neuropathy. He will be monitored of these symptoms and will notify us if progressive. We also reviewed the cold intolerance associated with oxaliplatin. He is instructed not to drink cold liquids or touch cold items for several days after each treatment. We also discussed that patients can have some mild jaw stiffness associated with oxaliplatin. G. Alopecia. We reviewed that hair will likely thin significantly with this treatment. H. Fatigue. Discussed that this is one of the most common complaints of patients undergoing chemotherapy. I have encouraged him to remain as active as possible, taking frequent rests as needed. He hopes to work throughout his treatment. I. Infusion reaction. Reviewed IV premedications. He will be monitored closely during infusions. J. Cholinergic reaction: We discussed that irinotecan can cause a cholinergic reaction with increased lacrimation, diaphoresis and rhinitis. He will notify us if this occurs and atropine will be given as needed. 3. I have instructed the patient to call our office if he is prescribed any new medications. It is recommended that multiple supplements or herbal medications may not be taken as these may interfere with the action of the chemotherapy. 4. Discussed dietary issues associated with chemotherapy including anorexia and changes in taste. A handout of nutrition information is given. 5. Office contact information ([phone]) is given. I have encouraged the patient to call with any issues regarding treatment. 6. A tour of the infusion room is given. The patient is given a packet of information including all of the above. Cycle #1 will begin on November 12, 2018. MTDD
[2018-11-12 08:52] VITALS: BP 108/62
[2018-11-12 09:09] LABS: PLATELET COUNT, AUTOMATED 201 K/uL (150-450)
[2018-11-12] MEDS: NS(*) 0.9% 500 ML BAG 500 ML IV PRN (09:16)
[2018-11-12] MEDS: DEXTROSE 5%(*) 100 ML BAG 100 ML IVPB PRN (09:16)
[2018-11-12] MEDS: DEXAMETHASONE SOD PHOS 10MG/ML IVP PRN (09:36)
[2018-11-12] MEDS: PALONOSETRON 0.25 MG/5 ML VIAL IVP PRN (09:36)
[2018-11-12 13:48] VITALS: BP 117/58
--- NOTE | 2018-11-13 04:43 | ONCOLOGY FOLLOW UP NOTE ---
EVENT DATE: November 12, 2018 CHIEF COMPLAINT Followup for stage IIB pancreatic cancer. HISTORY OF PRESENT ILLNESS Patient is a 68-year-old male who is seen today to begin treatment with FOLFIRINOX. He, his and daughter had a chemotherapy teaching visit on 11/09/18 and feel prepared for today's treatment. We again reviewed the possibility of a cholinergic reaction as well as the diarrhea. Patient is insulin dependent (Toujeo and NovoLog), and we discussed that he will likely have hyperglycemia due to the dexamethasone 10 mg IV that will be given as a premedication. I have asked him to carefully monitor his glucoses at home. Otherwise he feels ready to begin today's treatment. He denies any midback pain. He does have chronic right rib discomfort, but feels this is from previous chiropractor issue. ONCOLOGY HISTORY Patient is a 68-year old male who presented in September 2018 with weight loss, jaundice and acute kidney injury. CT scan showed a large pancreatic head mass measuring 5 x 4.4 x 5.5 cm with possible invasion in the duodenum that encased the SMA, GDA, mesenteric vessels and near occlusion of the SMV. The distal common bile duct and pancreatic duct were both obstructed. He was noted to have a creatinine of 6 with evidence of adrenal insufficiency. CA 19-9 was 3,010. ERCP was attempted on October 04, 2018 without success. He had a biliary stent placed on October 16, 2018. Total bilirubin has been slowly decreasing. He began FOLFIRINOX on November 12, 2018. PAST MEDICAL HISTORY 1. Type 2 diabetes. 2. Hyperlipidemia. 3. Hypertension. 4. Obstructive sleep apnea. 5. Gout. 6. Locally advanced pancreatic cancer, September 2018. 7. Atrial fibrillation. FAMILY HISTORY Remarkable for mainly GI cancers in his family. Patient deferred genetic testing at this time. SOCIAL HISTORY Patient is . They have one grown daughter. 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 MEDICATIONS 1. Toujeo. 2. NovoLog. 3. Spironolactone 50 mg daily. 4. Lipitor 40 mg daily. 5. Potassium 40 mEq 2 q.d. 6. Fluoxetine 40 mg daily. 7. Allopurinol 300 mg daily. 8. Vitamin D3. 9. Metoprolol 50 mg daily. 10. Omeprazole 20 mg daily. 11. Coumadin. 12. Meloxicam. ALLERGIES 1. PENICILLIN. 2. DOXYCYCLINE. REVIEW OF SYSTEMS A 12-point review of systems is performed and is negative except as stated above. PHYSICAL EXAMINATION VITAL SIGNS: Weight 103.5 kg, BP 108/62, P 72, R 16, temp 97.8, O2 sat 95%. GENERAL: Patient is a well-developed, well-nourished male in no acute distress. HEAD: Normocephalic, atraumatic. EYES: Sclerae anicteric. MOUTH: Moist mucous membranes. No lesions. NECK: Supple. No adenopathy. LUNGS: Clear bilaterally. CARDIOVASCULAR: Heart rate irregularly irregular, 72 per minute. ABDOMEN: Soft, nontender, with hypoactive bowel sounds. No organomegaly. EXTREMITIES: No edema. NEURO: Nonfocal. LABORATORY CBC today reveals WBC of 7.2, ANC of 6.1, hemoglobin 12.3, hematocrit 36.5, platelets 201,000. CMP is within normal limits except for a slightly low sodium of 135, random glucose 207, magnesium 1.5, and total bilirubin 1.4. CA19-9 is pending. IMPRESSION AND PLAN The patient is a 68-year-old male who presented in September with weight loss, jaundice, and an acute kidney injury. He was diagnosed with pancreatic cancer. CT scan showed a large pancreatic head mass measuring 5 x 4.4 x 5.5 cm with possible invasion of the duodenum that encased the superior mesenteric artery, gastroduodenal artery, mesenteric vessels, and near occlusion of the superior mesenteric vein. The common bile duct and pancreatic duct were both obstructed. Baseline CA 19-9 was 3010. ERCP was attempted without success. Biliary stent was placed on 10/16/18. Began FOLFIRINOX on 11/12/18. 1. Pancreatic cancer. Cycle #1 of FOLFIRINOX. He and his family feel ready for today's treatment. We again reviewed some of the possible side effects. Irinotecan will continue at a 25% dose reduction, as bilirubin is still slightly elevated, although much improved from previous. 2. Antiemetics. Reviewed antiemetics. He will use Compazine or Ativan if needed. We reviewed that he can use Zofran after three days if indicated. 3. Type 2 diabetes. Glucoses have been "all over the map." I discussed that premed of intravenous Decadron can cause significant hyperglycemia. He will monitor this carefully. He feels he manages his insulin fairly well. 4. Dr. Evans is planning a CT scan after cycle #2 of treatment. 5. Follow up in one week with Dr. Evans. CBC and CMP will be done at that time. 6. Follow up on 11/26/18 for cycle #2 of treatment. MTDD
[2018-11-14] MEDS: HEPARIN FLSH (PORT) 500 UN/5ML IVP PRN (13:30)
[2018-11-14 14:55] VITALS: BP 100/70
[2018-11-19 15:21] VITALS: BP 94/54
[2018-11-19 15:36] LABS: PLATELET COUNT, AUTOMATED 247 K/uL (150-450)
[2018-11-19] MEDS: NS(*) 0.9% 1000 ML BAG 1,000 ML IV PRN (15:45)
[2018-11-19] MEDS: LIDOCAINE/SOD BICARB 8.4% SYR ID PRN (16:43)
[2018-11-19] MEDS: HEPARIN FLSH (PORT) 500 UN/5ML IVP PRN (16:44)
--- NOTE | 2018-11-20 03:54 | ONCOLOGY FOLLOW UP NOTE ---
EVENT DATE: November 19, 2018 CHIEF COMPLAINT/REASON FOR VISIT Mr. Ricardo is a 68-year-old gentleman with advanced pancreatic cancer, here during cycle #1 of FOLFIRINOX chemotherapy. HISTORY OF PRESENT ILLNESS Mr. Ricardo returns. He is currently cycle #1/day 15 of FOLFIRINOX chemotherapy. These last four days in particular have been filled with headaches, nausea, diarrhea, vomiting. He is trying to take Compazine around the clock and occasional Zofran. He takes lorazepam as well. He was under the impression that he could not take the lorazepam, but I think it is extremely appropriate for him to do whatever he needs to do to control the nausea. He was receiving a 50% dose of irinotecan, given the elevated bilirubin, which continues to improve due to the biliary stent. Regardless, he continues to have significant challenges with chemotherapy and will need adjustment. PAST MEDICAL HISTORY 1. Diabetes. 2. Hyperlipidemia. 3. Hypertension. 4. Obstructive sleep apnea. 5. Gout. 6. Locally advanced pancreatic cancer. MEDICATION LIST 1. Insulin. 2. Spironolactone 50 mg daily. 3. Lipitor 40 mg daily. 4. Potassium chloride 40 mEq daily. 5. Fluoxetine 40 mg daily. 6. Allopurinol 300 mg daily. 7. Vitamin D3. 8. Metoprolol, unknown strength once a day. 9. Ibuprofen as needed. FAMILY HISTORY Remarkable for cancer in the family, mainly GI. Given his high family history risk, I recommended consideration of genetic counseling, but the patient declines at this time. He may consider it in the future. SOCIAL HISTORY Patient is and has presented with his and daughter today. 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 REVIEW OF SYSTEMS CONSTITUTIONAL: No fevers or chills. Positive weight loss. HEENT: Positive headaches. No vision changes. NEUROLOGIC: No focal deficits. Numbness. CARDIOVASCULAR: No chest pain, dyspnea on exertion, or edema. RESPIRATORY: No shortness of breath, wheeze, or cough. GASTROINTESTINAL: Positive nausea, vomiting, and diarrhea. GENITOURINARY: No dysuria or hematuria. MUSCULOSKELETAL: No weakness or joint pain. Positive fatigue. ENDOCRINE: No heat or cold intolerance. PSYCHIATRIC: No anxiety or depression. Remainder of 14-point review of systems is otherwise negative. PHYSICAL EXAMINATION VITAL SIGNS: Blood pressure 94/54 prior to fluids. Pulse 88, respiratory rate 16, temperature 99.6 Fahrenheit, oxygen saturation 95% on room air. Weight 95.6 kg, pain 4/10, fatigue 10/10. GENERAL: Stable condition, resting comfortably in the chair, receiving IV fluids. ECOG performance status of 2 today due to treatments and side effects. CARDIOVASCULAR: Regular rate and rhythm. LUNGS: Clear. ABDOMEN: Soft. EXTREMITIES: No clubbing, cyanosis, or edema. SKIN: No concerning rashes. He does have pale vaughan complexion. Remainder of physical exam otherwise unremarkable. IMPRESSION/REPORT/PLAN Mr. Ricardo is a 68-year-old gentleman with the followin. Advanced pancreatic cancer, on FOLFIRINOX chemotherapy. Given the excess side effects, we plan to reduce his dose 25% for cycle #2. If we provide fluids this weekend, and support, we may be able to continue treatment on time with the dose adjustment. 2. Nausea, vomiting, diarrhea, and mucositis related to side effects from chemotherapy. Discussed extensively remedies for this, including alternating Compazine and Zofran, adding lorazepam to his routine when able. He needs to drink more fluids, as dehydration greatly impairs the ability for antiemetics to work. Answered all of their many questions today in family meeting, with over 50 minutes spent in time of counseling and coordination of care. BILLING Return visit, level 5. Total time 55 minutes, counseling time 50. MTDD
[2018-11-20 11:59] VITALS: BP 85/52
[2018-11-20] MEDS: NS(*) 0.9% 500 ML BAG 500 ML IV PRN (12:16)
[2018-11-20] MEDS: LIDOCAINE/SOD BICARB 8.4% SYR ID PRN (12:16)
[2018-11-20] MEDS: HEPARIN FLSH (PORT) 500 UN/5ML IVP PRN (12:16)
[2018-11-20] MEDS: NS(*) 0.9% 1000 ML BAG 1,000 ML IV PRN (12:52)
[2018-11-20] MEDS: NS(*) 0.9% 100 ML BAG 100 ML IVPB PRN (13:54)
[2018-11-20 17:30] VITALS: BP 98/56
--- NOTE | 2018-11-20 19:48 | ONCOLOGY FOLLOW UP NOTE ---
EVENT DATE: November 20, 2018 CHIEF COMPLAINT Followup for advanced pancreatic cancer. HISTORY OF PRESENT ILLNESS Patient is a 68-year-old male who was seen today in followup. He received cycle 1 of FOLFIRINOX on 11/12/18. He had a very difficult time with nausea, vomiting, and diarrhea. He overall feels very weak. He states he vomited dinner for the past three nights, but none previously. Glucoses have ranged between 60 and 538. He continues with significant diarrhea. He saw Dr. Real today. INR was 7.0. Coumadin was discontinued. He has lost 8 kg in the interim. ONCOLOGY HISTORY Patient is a 68-year old male who presented in September 2018 with weight loss, jaundice, and acute kidney injury. CT scan showed a large pancreatic head mass measuring 5 x 4.4 x 5.5 cm with possible invasion in the duodenum that encased the SMA, GDA, mesenteric vessels, and near occlusion of the SMV. The distal common bile duct and pancreatic duct were both obstructed. He was noted to have a creatinine of 6 with evidence of adrenal insufficiency. CA19-9 was 3,010. ERCP was attempted on October 04, 2018, without success. He had a biliary stent placed on October 16, 2018. Total bilirubin has been slowly decreasing. He began FOLFIRINOX on November 12, 2018. PAST MEDICAL HISTORY 1. Type 2 diabetes. 2. Hyperlipidemia. 3. Hypertension. 4. Obstructive sleep apnea. 5. Gout. 6. Locally advanced pancreatic cancer, September 2018. 7. Atrial fibrillation. FAMILY HISTORY Remarkable for mainly GI cancers in his family. Patient deferred genetic testing at this time. SOCIAL HISTORY Patient is . They have one grown daughter. 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 MEDICATIONS 1. Toujeo. 2. NovoLog. 3. Spironolactone 50 mg daily. 4. Lipitor 40 mg daily. 5. Potassium 40 mEq 2 q.d. 6. Fluoxetine 40 mg daily. 7. Allopurinol 300 mg daily. 8. Vitamin D3. 9. Metoprolol 50 mg daily. 10. Omeprazole 20 mg daily. 11. Coumadin. 12. Meloxicam. ALLERGIES 1. PENICILLIN. 2. DOXYCYCLINE. REVIEW OF SYSTEMS A 12-point review of systems is performed and is negative except as stated above. PHYSICAL EXAMINATION VITAL SIGNS: Weight 95.6 kg. BP 85/52, P 88, R 16, temp 98, O2 sat 93%. GENERAL: Patient is a well-developed, but fatigued-appearing male in no acute distress. HEAD: Normocephalic, atraumatic. EYES: Sclerae anicteric. MOUTH: Slightly dry mucous membranes. No lesions. NECK: Supple. No palpable adenopathy. LUNGS: Slightly diminished, but clear bilaterally. CARDIOVASCULAR: Heart rate regular, 88 per minute, without murmur, S3, or S4. ABDOMEN: Soft, with mild mid epigastric tenderness. Active bowel sounds. No organomegaly. EXTREMITIES: No edema. NEURO: Nonfocal. LABORATORY BMP today shows a sodium of 130, BUN and creatinine of 20 and 1.4 respectively. Magnesium is 1.3. IMPRESSION AND PLAN The patient is a 68-year-old male who presented in September with weight loss, jaundice, and an acute kidney injury. He was diagnosed with pancreatic cancer. CT scan showed a large pancreatic head mass measuring 5 x 4.4 x 5.5 cm with possible invasion of the duodenum that encased the superior mesenteric artery, gastroduodenal artery, mesenteric vessels, and near occlusion of the superior mesenteric vein. The common bile duct and pancreatic duct were both obstructed. Baseline CA19-9 was 3010. Endoscopic retrograde cholangiopancreatography was attempted without success. Biliary stent was placed on 10/16/18. Began FOLFIRINOX on 11/12/18. 1. Pancreatic cancer. Patient is seen one week after receiving his first cycle of FOLFIRINOX. He saw Dr. Evans yesterday. Due to the excessive side effects, dose will be reduced 25% with cycle #2. 2. Hydration. Patient has had significant diarrhea. He is mildly tachycardic and states that he is "not drinking enough." He will be hydrated today. 3. Gastrointestinal. Vomited for the past three nights after dinner. He does have gastroesophageal reflux disease symptoms. I recommended he increase his omeprazole to 20 mg b.i.d. 4. Diarrhea, ongoing. On questioning, it does not appear he is taking Imodium on a regular basis. We again reiterated the importance of doing this to prevent issues with electrolyte imbalance and dehydration. I have given him written instructions. 5. Hypomagnesemia. Magnesium today is 1.3. He will be given magnesium sulfate 4 g IV today. 6. Follow up on 11/26/18 for cycle #2 of treatment. CBC, CMP, and magnesium will be drawn at that time. He will notify us if he needs to be seen in the interim. Again reiterated the importance of adequate Imodium. MTDD
[2018-11-22] MEDS: LIDOCAINE/SOD BICARB 8.4% SYR ID PRN (09:33)
[2018-11-22] MEDS: NS(*) 0.9% 1000 ML BAG 1,000 ML IV PRN (09:33)
[2018-11-22 09:35] VITALS: BP 99/70
[2018-11-23 10:31] VITALS: BP 111/62
[2018-11-23] MEDS: LIDOCAINE/SOD BICARB 8.4% SYR ID PRN (10:37)
[2018-11-23] MEDS: NS(*) 0.9% 1000 ML BAG 1,000 ML IV PRN (10:37)
[2018-11-23] MEDS: HEPARIN FLSH (PORT) 500 UN/5ML IVP PRN (10:37)
[2018-11-26 09:18] VITALS: BP 91/61
[2018-11-26] MEDS: LIDOCAINE/SOD BICARB 8.4% SYR ID PRN (10:05)
[2018-11-26] MEDS: NS(*) 0.9% 500 ML BAG 500 ML IV PRN (10:05)
[2018-11-26 10:07] VITALS: BP 95/49
[2018-11-26] MEDS: DEXAMETHASONE SOD PHOS 10MG/ML IVP PRN (11:27)
[2018-11-26] MEDS: PALONOSETRON 0.25 MG/5 ML VIAL IVP PRN (11:27)
[2018-11-26 16:35] VITALS: BP 116/69
--- NOTE | 2018-11-27 09:15 | ONCOLOGY FOLLOW UP NOTE ---
EVENT DATE: November 26, 2018 CHIEF COMPLAINT Followup for advanced pancreatic cancer. HISTORY OF PRESENT ILLNESS Patient is a 68-year old male who is seen today for consideration of cycle #2 of FOLFIRINOX. Due to excessive toxicities, Dr. Evans has dose reduced his treatment by 25%. He presents today and is feeling somewhat improved. His diarrhea has been under control. He had some abdominal cramping and dicyclomine was helpful. Last INR was 7.[address] Real has discontinued his Coumadin. Weight is up 2.5 kg since last week. ONCOLOGY HISTORY Patient is a 68-year old male who presented in September 2018 with weight loss, jaundice, and acute kidney injury. CT scan showed a large pancreatic head mass measuring 5 x 4.4 x 5.5 cm with possible invasion in the duodenum that encased the SMA, GDA, mesenteric vessels, and near occlusion of the SMV. The distal common bile duct and pancreatic duct were both obstructed. He was noted to have a creatinine of 6 with evidence of adrenal insufficiency. CA19-9 was 3,010. ERCP was attempted on October 04, 2018, without success. He had a biliary stent placed on October 16, 2018. Total bilirubin has been slowly decreasing. He began FOLFIRINOX on November 12, 2018. PAST MEDICAL HISTORY 1. Type 2 diabetes. 2. Hyperlipidemia. 3. Hypertension. 4. Obstructive sleep apnea. 5. Gout. 6. Locally advanced pancreatic cancer, September 2018. 7. Atrial fibrillation. FAMILY HISTORY Remarkable for mainly GI cancers in his family. Patient deferred genetic testing at this time. SOCIAL HISTORY Patient is . They have one grown daughter. 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 MEDICATIONS 1. Toujeo. 2. NovoLog. 3. Spironolactone 50 mg daily. 4. Lipitor 40 mg daily. 5. Potassium 40 mEq 2 q.d. 6. Fluoxetine 40 mg daily. 7. Allopurinol 300 mg daily. 8. Vitamin D3. 9. Metoprolol 50 mg daily. 10. Omeprazole 20 mg daily. 11. Dicyclomine 20 mg q.i.d. p.r.n. abdominal cramping. 12. Meloxicam. ALLERGIES 1. PENICILLIN. 2. DOXYCYCLINE. REVIEW OF SYSTEMS A 12-point review of systems is performed and is negative except as stated above. PHYSICAL EXAMINATION VITAL SIGNS: Weight 97.9 kg. BP 91/61, P 92, R 16, temp 97.3, O2 sat 90%. GENERAL: Patient is a well-developed but fatigued-appearing male in no acute distress. HEAD: Normocephalic, atraumatic. EYES: Sclerae anicteric. MOUTH: Slightly dry mucous membranes. No lesions noted. NECK: Supple. No palpable adenopathy. LUNGS: Clear bilaterally. CARDIOVASCULAR: Heart rate irregularly irregular, 92 per minute, without murmur, S3, or S4. ABDOMEN: Soft, nontender with hyperactive bowel sounds. EXTREMITIES: No edema. NEURO: Nonfocal. LABORATORY CBC today reveals a WBC of 6.4, ANC of 5.5, hemoglobin 12.5, hematocrit 37.5, platelets 281,000. CMP shows a sodium 128, random glucose 222, phosphorus 1.6, magnesium 1.6, albumin 2.9. IMPRESSION AND PLAN The patient is a 68-year-old male who presented in September with weight loss, jaundice, and an acute kidney injury. He was diagnosed with pancreatic cancer. CT scan showed a large pancreatic head mass measuring 5 x 4.4 x 5.5 cm with possible invasion of the duodenum that encased the superior mesenteric artery, gastroduodenal artery, mesenteric vessels, and near occlusion of the superior mesenteric vein. The common bile duct and pancreatic duct were both obstructed. Baseline CA19-9 was 3010. Endoscopic retrograde cholangiopancreatography was attempted without success. Biliary stent was placed on 10/16/18. Began FOLFIRINOX on 11/12/18. 1. Pancreatic cancer. Patient feels able to receive cycle #2 of FOLFIRINOX. Due to excessive toxicity, dose is reduced by 25%. 2. Hypomagnesemia. Magnesium today is 1.6. He will receive magnesium sulfate 4 grams IV today. 3. Hypophosphatemia. Phosphorus today is 1.6. Neutra-Phos 250 mg 1 q.4 hours for four doses is prescribed. Phosphorus will be repeated tomorrow. 4. Atrial fibrillation. INR was repeated today and was 8.0. As above, Coumadin has been discontinued. He has had no evidence of bleeding. Dr. Real also met with the patient today. Vitamin K is not prescribed as he has had no issues with bleeding. 5. Hypotension. Blood pressure today is 91/61. I recommended Spironolactone be held and Dr. Real is in agreement. 6. Medications. Patient has had some issues with his medications. I talked to he and his about pill boxes as this may make it easier for him. His states that she will help with this. 7. GI. Diarrhea is quiescent. We again reviewed the need for managing diarrhea promptly. 8. Follow up on 11/27/2018 for lab (phosphorus). 9. Follow up in one week for continued care, earlier if there is a problem. CBC, CMP, magnesium and phosphorus will be drawn at that time. MTDD
[2018-11-27 10:09] VITALS: BP 102/58
--- NOTE | 2018-11-27 15:17 | Medical Nutrition Therapy ---
Nutrition Anthropometrics Height (Inches): 68.70 Height (Calculated Centimeters: 174.4980 Weight (Pounds): 211 Darryl Nutrition Score: Darryl Nutrition Risk Score: Dietary Referral Nutrition Risk Factors: Nutrition Risk Comment: Nutrition/Food History Breakfast: bagle, jelly Lunch: ice cream cone Dinner: veg soup Nutritional Education Nutrition Education Topic: Other (Ca with wt loss and T2DM) Teaching Methods: Discussion, Handout Response to Teaching: Verbalize understanding Teaching Recipient: Patient, Significant Other Nutrition Counseling: pt has dx of T2DM. pt reporting wt loss with 22# wt loss noted past month. Per 24 hr recall- pt was consuming <1000 kcal/day. Pt concerned that BG is also elevated. Reviewed NCI tips for poor appetite and wt loss. Encoruaged pt to eat snack/supplments between meals. Provided handout on smoothies and protein milkshakes to try. discussed with pt how protein drinks may still raise BG but need adequate kcal now. Pt may need to have more medication to controll DM. contract information was provided if pt had further questions or concerns. Nutrition Monitoring & Eval RD Patient Assessment Time: [address] Assessment Type: RD Education ALRISA ORTEGA Nov 27, 2018 15:17
[2018-11-28 14:37] VITALS: BP 90/54
[2018-11-28] MEDS: HEPARIN FLSH (PORT) 500 UN/5ML IVP PRN (14:59)
[2018-12-04 08:09] VITALS: BP 93/53
[2018-12-04] MEDS: LIDOCAINE/SOD BICARB 8.4% SYR ID PRN (08:12)
[2018-12-04 08:31] LABS: PLATELET COUNT, AUTOMATED 196 K/uL (150-450)
[2018-12-04] MEDS: HEPARIN FLSH (PORT) 500 UN/5ML IVP PRN (10:11)
--- NOTE | 2018-12-04 11:15 | RADIOLOGY IMAGING REPORT ---
FACILITY: [facility] PATIENT NAME: Myles Ricardo : 1950 MR: [id number] V: [id number] EXAM DATE: ORDERING PHYSICIAN: NICOLE PATTERSON TECHNOLOGIST: Location: [facility] [place] Patient: Myles Ricardo : 1950 Visit/Account:[id number] Date of Sevice: 12/04/2018 CT CHEST ABDOMEN PELVIS W/CON HISTORY: Pancreatic head mass TECHNIQUE: CT imaging was obtained through the chest, abdomen and pelvis with intravenous contrast. One of the following dose optimization techniques was utilized in the performance of this exam: autom ated exposure control; adjustment of the mA and/or kv according to patient size; or use of iterative reconstruction technique. Specific details can be referenced in the facility's radiology CT exam oper ational policy. CONTRAST: 75 mL of Isovue-300 COMPARISON: CT abdomen/pelvis 10/11/2018 FINDINGS: CHEST: Lower neck: Adjacent left thyroid nodules measuring 9-10 mm. Vessels: Right internal jugular Port-A-Cath with its tip near the cavoatrial junction. Severe calci fication of the coronary arteries. Enlarged central pulmonary arteries with the pulmonary trunk wan uring 4.2 cm. Heart and pericardium: Negative Mediastinum/hilum/lymph nodes: Negative. Lungs/pleura: Right lower lobe calcified granuloma. Bones/soft tissues: Negative. Other findings: None significant ABDOMEN/PELVIS: Hepatobiliary: Intrahepatic/extrahepatic biliary drain has been replaced by a common bile duct stent . Pneumobilia with mild intrahepatic biliary ductal dilatation. Gallbladder is decompressed. Spleen: Negative. Adrenals: 9 mm low-attenuation lesion marginally within the spleen (image 94) is too small to accura tely characterize. Pancreas: Ill-defined pancreatic head mass with atrophy of the pancreatic body and tail and dilatati on the pancreatic duct, little changed. Mild increased soft tissue stranding surrounding the pancrea tic head. SMA is encased by soft tissue stranding. GDA encased by soft tissue stranding. Proper he patic artery exhibits abutment of soft tissue stranding. Greater than 180 degrees encasement of the SMV and portal vein. Kidneys/ureters/bladder: 3.2 x 2.5 cm right renal cyst. No hydronephrosis. Bowel/peritoneum/mesentery: No ascites. No bowel obstruction or free air. Vessels: See above. Lymph nodes: Gastric hepatic ligament lymph node measuring 0.9 x 0.7 cm (image 98). Portal caval lym ph node measures 2.2 x 1.0 cm (image 111). Pelvic genitourinary: Negative. Bones/soft tissues: There is new mild superior endplate compression fracture at L4. New inferior en dplate deformity at L2. Other findings: None significant IMPRESSION: 1. Imaging the chest reveals no concerning pulmonary nodule, lymphadenopathy or pleural effusion. 2. Imaging of the abdomen reveals interval placement of a common bile duct stent with mild intrahepa tic biliary ductal dilatation and pneumobilia. Stable ill-defined pancreatic head mass with increasi ng adjacent soft tissue stranding with soft tissue stranding encasing multiple vascular structures ou tlined above. Borderline enlarged gastrohepatic ligament and portacaval lymph nodes. 3. Imaging the bones reveals new mild superior endplate compression fracture at L4. Recommend clini gayla correlation for back pain and recent trauma. Report Dictated By: Baldev Strickland MD at 12/04/2018 10:42 AM Report E-Signed By: Baldev Strickland MD at 12/04/2018 11:12 AM WSN:[email or web address]
--- NOTE | 2018-12-05 11:36 | ONCOLOGY FOLLOW UP NOTE ---
EVENT DATE: December 04, 2018 CHIEF COMPLAINT Followup for advanced pancreatic cancer. HISTORY OF PRESENT ILLNESS Patient is a 68-year old male who is seen today one week after receiving cycle #2 of FOLFIRINOX. Due to excessive toxicities, the dose was reduced 25%. He feels he tolerated his treatment somewhat better. Stools remains soft, approximately four to eight per day, but no swapna diarrhea. He has developed hemorrhoids. His biggest issue today is that of significant back pain which he describes at L4-5. He relates injuring his back many years ago. 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 This then resolved but has now recurred. He underwent CT of the chest, abdomen and pelvis today to assess response to treatment. He is working on changing his insulin doses based on glucoses. He states that his blood sugars are high in the morning but low in the evening. He continues follow up with Dr. Real. ONCOLOGY HISTORY Patient is a 68-year old male who presented in September 2018 with weight loss, jaundice, and acute kidney injury. CT scan showed a large pancreatic head mass measuring 5 x 4.4 x 5.5 cm with possible invasion in the duodenum that encased the SMA, GDA, mesenteric vessels, and near occlusion of the SMV. The distal common bile duct and pancreatic duct were both obstructed. He was noted to have a creatinine of 6 with evidence of adrenal insufficiency. CA19-9 was 3,010. ERCP was attempted on October 04, 2018, without success. He had a biliary stent placed on October 16, 2018. Total bilirubin has decreased and normalized. He began FOLFIRINOX on November 12, 2018. PAST MEDICAL HISTORY 1. Type 2 diabetes. 2. Hyperlipidemia. 3. Hypertension. 4. Obstructive sleep apnea. 5. Gout. 6. Locally advanced pancreatic cancer, September 2018. 7. Atrial fibrillation. FAMILY HISTORY Remarkable for mainly GI cancers in his family. Patient deferred genetic testing at this time. SOCIAL HISTORY Patient is . They have one grown daughter. 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 MEDICATIONS 1. Toujeo. 2. NovoLog. 3. Spironolactone 50 mg daily. 4. Lipitor 40 mg daily. 5. Potassium 40 mEq 2 q.d. 6. Fluoxetine 40 mg daily. 7. Allopurinol 300 mg daily. 8. Vitamin D3. 9. Metoprolol 50 mg daily. 10. Omeprazole 20 mg daily. 11. Dicyclomine 20 mg q.i.d. p.r.n. abdominal cramping. 12. Meloxicam. ALLERGIES 1. PENICILLIN. 2. DOXYCYCLINE. REVIEW OF SYSTEMS A 12-point review of systems is performed and is negative except as stated above. PHYSICAL EXAMINATION VITAL SIGNS: Blood pressure 93/53, pulse 84, respirations 16, temperature 96.7, O2 sat 95%. GENERAL: Patient is a well-developed, well-nourished male. He moves gingerly in the exam room today. HEAD: Normocephalic, atraumatic. EYES: Sclerae anicteric. MOUTH: Slightly dry mucous membranes. No lesions. NECK: Supple. No palpable adenopathy. CARDIOVASCULAR: Heart rate regular, 84 per minute, without murmur, S3, or S4. EXTREMITIES: Trace pedal edema bilaterally. NEURO: Nonfocal. LABORATORY CBC today reveals a WBC of 2.4, ANC of 1.6, hemoglobin 11.4, hematocrit 33.7, platelets 196,000. CMP shows a potassium of 3.1, phosphorus 3.1, magnesium 1.2, calcium 8.0, albumin 2.9. IMAGING CT of the chest, abdomen and pelvis on December 04, 2018 showed no concerning pulmonary nodules, lymphadenopathy or pleural effusion. The imaging of the abdomen showed interval placement of the common bile duct stent. The stable, ill-defined, pancreatic head mass with increasing adjacent soft tissue stranding encasing multiple vascular structures is unchanged. There are borderline enlarged gastrohepatic ligament and portocaval lymph nodes. There was a new mild superior endplate compression fracture at L4. IMPRESSION AND PLAN The patient is a 68-year-old male who presented in September with weight loss, jaundice, and an acute kidney injury. He was diagnosed with pancreatic cancer. CT scan showed a large pancreatic head mass measuring 5 x 4.4 x 5.5 cm with possible invasion of the duodenum that encased the superior mesenteric artery, gastroduodenal artery, mesenteric vessels, and near occlusion of the superior mesenteric vein. The common bile duct and pancreatic duct were both obstructed. Baseline CA19-9 was 3010. Endoscopic retrograde cholangiopancreatography was attempted without success. Biliary stent was placed on 10/16/18. Began FOLFIRINOX on 11/12/18. 1. Pancreatic cancer. Patient is seen one week after receiving cycle #2 of FOLFIRINOX. Dose was reduced by 25% due to toxicity. Will continue at current dose with next cycle. 2. Hypomagnesemia. Magnesium again has decreased to 1.2. He will receive magnesium sulfate 4 grams IV today. 3. Hypokalemia. Potassium has decreased to 3.1. KCl 20 mEq IV is given in 1L of normal saline. 4. Atrial fibrillation. He is currently off Coumadin. INRs have been poorly controlled, likely due to FOLFIRINOX. I have called Dr. Real's office to see if she would consider switching him to DOAC as INRs will be very difficult to control while on this chemotherapy. 5. Back pain, significant low back pain. CT today shows a new mild superior endplate compression fracture at L4. I have reviewed this with Dr. Evans, who recommends MRI be done. 6. Follow up in one week for cycle #3 of treatment or earlier if there is a problem. MTDD
[2018-12-10 09:01] VITALS: BP 100/54
[2018-12-10 09:20] LABS: PLATELET COUNT, AUTOMATED 242 K/uL (150-450)
[2018-12-10] MEDS: LIDOCAINE/SOD BICARB 8.4% SYR ID PRN (09:39)
[2018-12-10] MEDS: NS(*) 0.9% 500 ML BAG 500 ML IV PRN (09:40)
[2018-12-10] MEDS: KCL (*) 20 MEQ/100 ML PREMIX 100 ML IVPB SCH ×2 (10:21→12:00)
[2018-12-10 14:45] VITALS: BP 86/52
--- NOTE | 2018-12-11 03:57 | ONCOLOGY FOLLOW UP NOTE ---
EVENT DATE: December 10, 2018 CHIEF COMPLAINT Followup for advanced pancreatic cancer. HISTORY OF PRESENT ILLNESS Patient is a 68-year-old male who was seen today for consideration of cycle #3 of FOLFIRINOX. His second dose was given at a 25% dose reduction due to toxicity, and he tolerated this somewhat better. He previously had significant diarrhea, but now has constipation with hemorrhoid formation. He complains of continued L4 back pain (new superior endplate compression fracture at L4 noted on CT scan, 12/04/18), and MRI will be scheduled. 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 He continues on Eliquis, as previous treatment with Coumadin was very difficult to manage while on FOLFIRINOX. He has had no issues with excessive bruising or bleeding. He does have lower-extremity swelling. He complains of a nonproductive cough. ONCOLOGY HISTORY Patient is a 68-year old male who presented in September 2018 with weight loss, jaundice, and acute kidney injury. CT scan showed a large pancreatic head mass measuring 5 x 4.4 x 5.5 cm with possible invasion in the duodenum that encased the SMA, GDA, mesenteric vessels, and near occlusion of the SMV. The distal common bile duct and pancreatic duct were both obstructed. He was noted to have a creatinine of 6 with evidence of adrenal insufficiency. CA19-9 was 3,010. ERCP was attempted on October 04, 2018, without success. He had a biliary stent placed on October 16, 2018. Total bilirubin has decreased and normalized. He began FOLFIRINOX on November 12, 2018. Dose was decreased by 25% with cycle #2 due to excessive toxicity. PAST MEDICAL HISTORY 1. Type 2 diabetes. 2. Hyperlipidemia. 3. Hypertension. 4. Obstructive sleep apnea. 5. Gout. 6. Locally advanced pancreatic cancer, September 2018. 7. Atrial fibrillation. FAMILY HISTORY Remarkable for mainly GI cancers in his family. Patient deferred genetic testing at this time. SOCIAL HISTORY Patient is . They have one grown daughter. 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 MEDICATIONS 1. Toujeo. 2. NovoLog. 3. Spironolactone 50 mg daily. 4. Lipitor 40 mg daily. 5. Eliquis. 6. Fluoxetine 40 mg daily. 7. Allopurinol 300 mg daily. 8. Vitamin D3. 9. Metoprolol 50 mg daily. 10. Omeprazole 20 mg daily. 11. Dicyclomine 20 mg q.i.d. p.r.n. abdominal cramping. 12. Meloxicam. ALLERGIES 1. PENICILLIN. 2. DOXYCYCLINE. REVIEW OF SYSTEMS A 12-point review of systems is performed and is negative except as stated above. PHYSICAL EXAMINATION VITAL SIGNS: Weight 98.8 kg, BP 100/54, P 64, R 16, temp 95.6, O2 sat 96%. GENERAL: Patient is a well-developed but fatigued-appearing male in no acute distress. HEAD: Normocephalic, atraumatic. EYES: Sclerae anicteric. MOUTH: Moist mucous membranes. Postnasal drip visible in posterior pharynx. NECK: Supple. No palpable adenopathy. LUNGS: Slightly diminished but clear bilaterally. CARDIOVASCULAR: Heart rate regular, 64 per minute, without murmur, S3, or S4. EXTREMITIES: Pretibial edema 1+ bilaterally. NEURO: Nonfocal. LABORATORY CBC today reveals a WBC of 2.9, ANC of 1.2, hemoglobin 10.6, hematocrit 31.3, platelets 242,000. CMP shows a potassium of 2.6, glucose 174, phosphorus 2.4, magnesium 1.2, albumin 2.7. CA19-9 is pending. IMPRESSION AND PLAN The patient is a 68-year-old male who presented in September with weight loss, jaundice, and an acute kidney injury. He was diagnosed with pancreatic cancer. CT scan showed a large pancreatic head mass measuring 5 x 4.4 x 5.5 cm with possible invasion of the duodenum that encased the superior mesenteric artery, gastroduodenal artery, mesenteric vessels, and near occlusion of the superior mesenteric vein. The common bile duct and pancreatic duct were both obstructed. Baseline CA19-9 was 3010. Endoscopic retrograde cholangiopancreatography was attempted without success. Biliary stent was placed on 10/16/18. Began FOLFIRINOX on 11/12/18. 1. Pancreatic cancer. Patient presents for cycle #3 of FOLFIRINOX. However, due to neutropenia, this will be delayed one week. He will follow up with Dr. Evans on 12/17/18 for continued care. 2. Neutropenia. Absolute neutrophil count today is 1.2. We reviewed neutropenia precautions, and he will notify us if he develops fever or signs of infection. 3. Hypomagnesemia. Magnesium is 1.2. He will receive magnesium sulfate 4 g intravenously today. 4. Hypokalemia. Previously, potassium was elevated at 5.3. Dr. Real had stopped his potassium supplement. Potassium today is 2.6. He will receive KCl 40 mEq intravenously today. I have asked him to restart KCl 20 mEq p.o. twice per day. Labs will be repeated in one week. 5. Atrial fibrillation. Continue Eliquis. Coumadin was discontinued as it was very difficult to manage on FOLFIRINOX. 6. Back pain. Ongoing. MRI is pending. 7. Cough. Nonproductive cough. I suspect allergic rhinitis, as he has postnasal drip. Discussed use of Flonase and/or antihistamine. 8. Response. CT CAP on 12/04/18 showed the stable ill-defined pancreatic head mass with increasing soft tissue stranding encompassing multiple vascular structures. A new mild superior endplate compression fracture was noted at L4. 8. Follow up on 12/17/[address] Evans for consideration of cycle #3 of FOLFIRINOX. This will likely continue at a 25% dose reduction. MTDD
[2018-12-13 15:36] VITALS: BP 104/69
[2018-12-13] MEDS: LIDOCAINE/SOD BICARB 8.4% SYR ID PRN (15:46)
[2018-12-13 15:49] LABS: PLATELET COUNT, AUTOMATED 348 K/uL (150-450)
[2018-12-13] MEDS: HEPARIN FLSH (PORT) 500 UN/5ML IVP PRN (16:21)
[2018-12-14 08:15] VITALS: BP 117/70
[2018-12-14] MEDS: LIDOCAINE/SOD BICARB 8.4% SYR ID PRN (09:27)
[2018-12-14] MEDS: HEPARIN FLSH (PORT) 500 UN/5ML IVP PRN (09:28)
--- NOTE | 2018-12-14 15:55 | ONCOLOGY FOLLOW UP NOTE ---
EVENT DATE: December 13, 2018 CHIEF COMPLAINT Followup for complaints of acute bilateral lower extremity edema which began approximately two to three days ago. Followup for advanced pancreatic cancer. HISTORY OF PRESENT ILLNESS Patient is a 68-year-old male who was seen today for consideration of cycle #3 of FOLFIRINOX. His second dose was given at a 25% dose reduction due to toxicity, and he tolerated this somewhat better. He previously had significant diarrhea, but now has constipation with hemorrhoid formation. He complains of continued L4 back pain (new superior endplate compression fracture at L4 noted on CT scan, 12/04/18), and MRI will be scheduled. 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 He continues on Eliquis, as previous treatment with Coumadin was very difficult to manage while on FOLFIRINOX. He has had no issues with excessive bruising or bleeding. He does have lower-extremity swelling. He complains of a nonproductive cough. MRI is still currently pending insurance authorization. 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 He remains on Eliquis, as previous treatment with Coumadin was very difficult to manage while on FOLFIRINOX. He denies any difficulties with excessive bruising or bleeding. He has had lower extremity swelling bilaterally. He has also reported an intermittent, nonproductive cough. Today, he is being seen for an acute visit after calling our office this morning and reporting worsening bilateral lower extremity edema, causing difficulty with ambulation and general discomfort. He reports that he is now off all diuretics. In the past, he was on furosemide, spironolactone, and metolazone. ONCOLOGY HISTORY Patient is a 68-year old male who presented in September 2018 with weight loss, jaundice, and acute kidney injury. CT scan showed a large pancreatic head mass measuring 5 x 4.4 x 5.5 cm with possible invasion in the duodenum that encased the SMA, GDA, mesenteric vessels, and near occlusion of the SMV. The distal common bile duct and pancreatic duct were both obstructed. He was noted to have a creatinine of 6 with evidence of adrenal insufficiency. CA19-9 was 3,010. ERCP was attempted on October 04, 2018, without success. He had a biliary stent placed on October 16, 2018. Total bilirubin has decreased and normalized. He began FOLFIRINOX on November 12, 2018. Dose was decreased by 25% with cycle #2 due to excessive toxicity. PAST MEDICAL HISTORY 1. Type 2 diabetes. 2. Hyperlipidemia. 3. Hypertension. 4. Obstructive sleep apnea. 5. Gout. 6. Locally advanced pancreatic cancer, September 2018. 7. Atrial fibrillation. FAMILY HISTORY Remarkable for mainly GI cancers in his family. Patient deferred genetic testing at this time. SOCIAL HISTORY Patient is . They have one grown daughter. 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 MEDICATIONS 1. Toujeo. 2. NovoLog. 3. Spironolactone 50 mg daily. 4. Lipitor 40 mg daily. 5. Eliquis. 6. Fluoxetine 40 mg daily. 7. Allopurinol 300 mg daily. 8. Vitamin D3. 9. Metoprolol 50 mg daily. 10. Omeprazole 20 mg daily. 11. Dicyclomine 20 mg q.i.d. p.r.n. abdominal cramping. 12. Meloxicam. ALLERGIES 1. PENICILLIN. 2. DOXYCYCLINE. REVIEW OF SYSTEMS A 12-point review of systems is performed and is negative except as stated above. Patient reports significant worsening bilateral lower extremity edema, which he believes worsened two to three days ago. This is making ambulation and general movement difficult. He continues to have back pain as noted above, and his lower extremity edema is making his back pain worse. He is finding it difficult to get comfortable in bed. He does have a prescription for tramadol, but tells me that he only uses one at bedtime if he even does that. 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 PHYSICAL EXAMINATION VITAL SIGNS: Weight at 104.8 kg, an increase of 13 pounds. T 97.0 degrees Fahrenheit, BP 104/69, P 79, R 16, oxygen saturation 95% room air. GENERAL: Patient is a well-developed, well-nourished male who appears to be in no acute distress. He does seem somewhat fatigued. HEAD: Normocephalic, atraumatic. There is clear rhinorrhea noted to bilateral turbinates. EYES: Sclerae anicteric. MOUTH: Moist mucous membranes. NECK: Supple. No palpable adenopathy. LUNGS: Somewhat diminished breath sounds bilaterally, but overall clear and symmetric. CARDIOVASCULAR: Heart rate regular with normal rhythm. No murmur or ectopy. EXTREMITIES: Patient has significant bilateral lower extremity edema, 3+ bilaterally past the knee to the upper thigh. No erythema. NEUROLOGIC: Nonfocal. Patient is alert and oriented times three. LABORATORY CBC today: WBC 7.8, ANC 5.3, hemoglobin 11.6, hematocrit 34.4%, platelets 348,000. CMP today: Potassium at 3.3, sodium normal at 139, creatinine normal at 0.70, magnesium minimally low at 1.6, and calcium low at 7.7. CA19-9 on 12/10/18: 280, down from a previous 343 from labs on 11/12/18. IMPRESSION AND PLAN The patient is a 68-year-old male who presented in September with weight loss, jaundice, and an acute kidney injury. He was diagnosed with pancreatic cancer. CT scan showed a large pancreatic head mass measuring 5 x 4.4 x 5.5 cm with possible invasion of the duodenum that encased the superior mesenteric artery, gastroduodenal artery, mesenteric vessels, and near occlusion of the superior mesenteric vein. The common bile duct and pancreatic duct were both obstructed. Baseline CA19-9 was 3010. Endoscopic retrograde cholangiopancreatography was attempted without success. Biliary stent was placed on 10/16/18. Began FOLFIRINOX on 11/12/18. He is being seen today for complaints of worsening bilateral lower extremity edema. He has been off all diuretics for at least several weeks, per the patient's account. He was instructed by his physician to decrease his spironolactone, and he reports he was then instructed to discontinue all diuretics. He reports that he remains on oral potassium supplementation with 20 mEq b.i.d. 1. Pancreatic cancer: Patient is on FOLFIRINOX and was dose delayed previous secondary to neutropenia. He will resume treatment hopefully next week with Cycle #3. He is scheduled to follow up with his medical oncologist, Dr. Evans, on 12/17/18 for continued care. 2. Neutropenia: Resolved, with ANC today at 5.3. He is aware to notify us for any signs of infection or fever. 3. Bilateral edema, 3+: Patient is off all diuretics. He does have a history of chronic diuretics and lower extremity edema, though this is worse. He will receive Lasix 20 mg intravenous today. He will remain off all oral diuretics until we recheck his CMP tomorrow morning, and at that point, we will determine dosing and further plan for oral diuretic use. 4. Hypokalemia: Patient's potassium level is 3.3 today. He remains on b.i.d. potassium chloride 20 mEq. For now, he will continue at this dose, and we will reassess this with tomorrow's labs. 5. Hypomagnesemia: Noted to be only minimally low at 1.6. Previously, he has been as low as 1.2 and has received magnesium sulfate intravenously in the past. Again, we will recheck this tomorrow and will treat as needed. 6. Hypocalcemia. Noted after patient's discharge. Will recheck this tomorrow morning and will also reassess this in the a.m. He does have hyopalbuminemia and corrected calcium is within normal limits. 7. Atrial fibrillation: Patient will continue on Eliquis, and he reports good compliance. He denies any bleeding complications. 8. Back pain: Ongoing; MRI still currently pending scheduling due to insurance authorization. We discussed his pain regimen. 9. Pain management: Patient is to remain on tramadol, though I did offer hydrocodone, but patient refused. He is only taking one tramadol daily and at times does not take anything. I have instructed him to try and take two tramadol at bedtime as he does not want to take this during the day. 10. We reviewed all signs and symptoms regarding ER/MD parameters. 11. He will have labs tomorrow morning, and we will re-evaluate labs tomorrow. 12. Patient will continue followup as scheduled with Dr. Evans next week on 12/17/18. GAMALIEL
[2018-12-17] MEDS: LIDOCAINE/SOD BICARB 8.4% SYR ID PRN (09:06)
[2018-12-17] MEDS: NS(*) 0.9% 500 ML BAG 500 ML IV PRN (09:06)
[2018-12-17] MEDS: HEPARIN FLSH (PORT) 500 UN/5ML IVP PRN (09:07)
[2018-12-17 09:15] VITALS: BP 114/70
[2018-12-17] MEDS: DEXAMETHASONE SOD PHOS 10MG/ML IVP PRN (11:50)
[2018-12-17] MEDS: PALONOSETRON 0.25 MG/5 ML VIAL IVP PRN (11:50)
[2018-12-17] MEDS: DEXTROSE 5%(*) 100 ML BAG 100 ML IVPB PRN (12:41)
[2018-12-17 17:03] VITALS: BP 108/60
--- NOTE | 2018-12-18 07:40 | [facility] ONCOLOGY NOTE ---
EVENT DATE: December 17, 2018 CHIEF COMPLAINT/REASON FOR VISIT Mr. Ricardo is a pleasant 68-year old gentleman with advanced pancreatic cancer, currently unresectable, that is here for cycle #3, day 1, of FOLFIRINOX chemotherapy. His second cycle required a 25% dose reduction due to toxicity. HISTORY OF PRESENT ILLNESS Mr. Ricardo returns. The most recent cycle was delayed for one week due to neutropenia. He has recovered adequately and his labs look well to proceed today. He feels in general the second cycle was better tolerated. He continues on Eliquis as previous treatment with Coumadin was difficult to manage. No new side effects of concern. He has a nonproductive cough with positive sick contacts with his family. No change in this and it may be getting better. His edema is significant but he is currently taking Lasix and Metolazone. He has lost approximately 17 pounds since making this adjustment. He still has significant edema and we will continue the regimen until we can switch it to as needed. His skin after two cycles did not show the ability to resect this but we plan to get repeat imaging at the end of January to see if it is now appropriate to move forward with surgery. We discussed today again how it may now be possible to resect this, in which case chemotherapy would be palliative. He expresses understanding with this. ONCOLOGY HISTORY Patient is a 68-year old male who presented in September 2018 with weight loss, jaundice, and acute kidney injury. CT scan showed a large pancreatic head mass measuring 5 x 4.4 x 5.5 cm with possible invasion in the duodenum that encased the SMA, GDA, mesenteric vessels, and near occlusion of the SMV. The distal common bile duct and pancreatic duct were both obstructed. He was noted to have a creatinine of 6 with evidence of adrenal insufficiency. CA19-9 was 3,010. ERCP was attempted on October 04, 2018, without success. He had a biliary stent placed on October 16, 2018. Total bilirubin has decreased and normalized. He began FOLFIRINOX on November 12, 2018. Dose was decreased by 25% with cycle #2 due to excessive toxicity. PAST MEDICAL HISTORY 1. Type 2 diabetes. 2. Hyperlipidemia. 3. Hypertension. 4. Obstructive sleep apnea. 5. Gout. 6. Locally advanced pancreatic cancer, September 2018. 7. Atrial fibrillation. FAMILY HISTORY Remarkable for mainly GI cancers in his family. Patient deferred genetic testing at this time. SOCIAL HISTORY Patient is . They have one grown daughter. 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 MEDICATIONS 1. Toujeo. 2. NovoLog. 3. Spironolactone 50 mg daily. 4. Lipitor 40 mg daily. 5. Eliquis. 6. Fluoxetine 40 mg daily. 7. Allopurinol 300 mg daily. 8. Vitamin D3. 9. Metoprolol 50 mg daily. 10. Omeprazole 20 mg daily. 11. Dicyclomine 20 mg q.i.d. p.r.n. abdominal cramping. 12. Meloxicam. ALLERGIES 1. PENICILLIN. 2. DOXYCYCLINE. REVIEW OF SYSTEMS CONSTITUTIONAL: No fevers, chills or significant weight change. HEENT: No headache or vision changes. CARDIOVASCULAR: No chest pain, dyspnea on exertion, edema. RESPIRATORY: No shortness of breath, wheeze or cough. GI: No nausea or vomiting. : No dysuria or hematuria. MUSCULOSKELETAL: Positive fatigue and weakness but no focal symptoms. ENDOCRINE: No heat or cold intolerance. PSYCHIATRIC: No anxiety or depression currently. SKIN: No concerning rashes or lesions. Remainder of 14-point review of systems is otherwise negative. PHYSICAL EXAMINATION VITAL SIGNS: Blood pressure and all vitals reviewed in the chemotherapy unit. GENERAL: Stable condition, resting comfortably under a blanket today. HEENT: Normocephalic, atraumatic. CARDIOVASCULAR: Regular rate and rhythm. LUNGS: Clear to auscultation bilaterally. ABDOMEN: Soft, obese, distended, nontender. No masses or organomegaly. EXTREMITIES: 3+ edema but considerably improved from November 2018. Remainder of visit is otherwise unremarkable. IMPRESSION/REPORT/PLAN Mr. Ricardo is a pleasant 68-year-old gentleman with the followin. Locally advanced, currently unresectable pancreatic cancer. Ready to proceed with cycle #3 of FOLFIRINOX today. He did require a week delay due to neutropenia, which is not unusual. Ready to move forward today. 2. Hypomagnesemia. This is related to chemotherapy as well as his diuretics. We will replace with IV today. It has improved compared to last week. 3. Hypokalemia not an issue today but we did increase his potassium last Monday to 30 mEq twice daily. 4. History of atrial fibrillation, on Eliquis. 5. Back pain. MRI is now approved and we will get this to evaluate for metastatic disease. 6. Nonproductive cough, likely viral syndrome. No change today. I discussed the case extensively with Dr. Barajas a few weeks ago. Since our last visit, we have arranged for scans on February 06 and we will proceed with chemotherapy until that time. I am hopeful that he will become a candidate for surgery but I am veery concerned that he will not be. We discussed this again today and he understands that in the event that we cannot do surgery that this would be palliative treatment. I answered all of his many questions today. Billing Return visit level 5. Total time 45 minutes, counseling time 30. High risk, high complexity. MTDD
[2018-12-24 15:34] VITALS: BP 96/58
[2018-12-24 16:01] LABS: PLATELET COUNT, AUTOMATED 351 K/uL (150-450)
[2018-12-25 14:36] VITALS: BP 106/94
[2018-12-25] MEDS: LIDOCAINE/SOD BICARB 8.4% SYR ID PRN (14:43)
[2018-12-25 16:10] VITALS: BP 104/60
[2018-12-25] MEDS: HEPARIN FLSH (PORT) 500 UN/5ML IVP PRN (16:10)
--- NOTE | 2018-12-25 17:17 | ONCOLOGY FOLLOW UP NOTE ---
EVENT DATE: December 24, 2018 CHIEF COMPLAINT Mr. Ricardo is being seen today for followup for his advanced pancreatic cancer, currently unresectable. He is a 58-year-old gentleman on FOLFIRINOX. He has received three cycles thus far. His second cycle required a 25% dose reduction due to toxicity. Our plan is to continue on his current dose reduction. He was seen in the Emergency Room day before yesterday for complaints of symptoms of CVA. Workup per the ER was negative. HISTORY OF PRESENT ILLNESS Mr. Ricardo is here today for followup after being seen in the Emergency Room. He has some questions regarding to medications. He did have a one-week dose delay in chemotherapy secondary to neutropenia. He recovered adequately, and as mentioned above, he is now on a 25% dose reduction on his FOLFIRINOX. He tolerated his second cycle well. He has now received three cycles and will be due for his next cycle next week. He continues on Eliquis b.i.d. for AFib. Previously, he was on Coumadin, but this was found to be difficult to manage. He denies any bleeding complications. He has had some bilateral lower extremity edema, quite significant, which previously was noted up to the mid thighs. He is now back on daily Lasix and metolazone and has diuresed well. He has lost approximately 17 pounds since re-initiating diuretic treatment. He is currently deemed unresectable, but we plan to repeat imaging at the end of January to see if surgery would potentially be appropriate. He is aware that this may not be amenable to resection, in which case chemotherapy would then be given in the palliative setting. He is here with his today. His tells me that he had difficulty speaking and expressing his words and thoughts on Monday. She tells me that whatever he was saying was incoherent. As a result, they presented to the Emergency Room as she thought he was having a stroke. Mr. Ricardo insists that he was completely coherent. He also tells me that he continues to use only one tramadol at bedtime for pain. He is quite upset as he reports that the ER informed him to stop his tramadol. He reports that he did see a glassware maker for consultation right when he was diagnosed, but was instructed to follow up and never did. His diabetes and hypertension are being managed by Dr. Real, his PCP. ONCOLOGY HISTORY Patient is a 68-year old male who presented in September 2018 with weight loss, jaundice, and acute kidney injury. CT scan showed a large pancreatic head mass measuring 5 x 4.4 x 5.5 cm with possible invasion in the duodenum that encased the SMA, GDA, mesenteric vessels, and near occlusion of the SMV. The distal common bile duct and pancreatic duct were both obstructed. He was noted to have a creatinine of 6 with evidence of adrenal insufficiency. CA19-9 was 3,010. ERCP was attempted on October 04, 2018, without success. He had a biliary stent placed on October 16, 2018. Total bilirubin has decreased and normalized. He began FOLFIRINOX on November 12, 2018. Dose was decreased by 25% with cycle #2 due to excessive toxicity. He has now completed three cycles. PAST MEDICAL HISTORY 1. Type 2 diabetes. 2. Hyperlipidemia. 3. Hypertension. 4. Obstructive sleep apnea. 5. Gout. 6. Locally advanced pancreatic cancer, September 2018. 7. Atrial fibrillation. FAMILY HISTORY Remarkable for mainly GI cancers in his family. Patient deferred genetic testing at this time. SOCIAL HISTORY Patient is . They have one grown daughter. 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 MEDICATIONS 1. Toujeo. 2. NovoLog. 3. Spironolactone 50 mg daily. 4. Lipitor 40 mg daily. 5. Eliquis. 6. Fluoxetine 40 mg daily. 7. Allopurinol 300 mg daily. 8. Vitamin D3. 9. Metoprolol 50 mg daily. 10. Omeprazole 20 mg daily. 11. Dicyclomine 20 mg q.i.d. p.r.n. abdominal cramping. 12. Meloxicam. ALLERGIES 1. PENICILLIN. 2. DOXYCYCLINE. REVIEW OF SYSTEMS CONSTITUTIONAL: Patient denies any recent fevers, chills, or infections. HEENT: He has an occasional productive cough, but nothing new. He denies any vision changes. CARDIOVASCULAR: He denies any chest pain, dyspnea on exertion, palpitations, syncope, or presyncope. RESPIRATORY: He has an occasional cough. No shortness of breath. No wheezes. GASTROINTESTINAL: EVENT DATE: December 17, 2018 CHIEF COMPLAINT/REASON FOR VISIT Mr. Ricardo is a pleasant 68-year old gentleman with advanced pancreatic cancer, currently unresectable, that is here for cycle #3, day 1, of FOLFIRINOX chemotherapy. His second cycle required a 25% dose reduction due to toxicity. HISTORY OF PRESENT ILLNESS Mr. Ricardo returns. The most recent cycle was delayed for one week due to neutropenia. He has recovered adequately and his labs look well to proceed today. He feels in general the second cycle was better tolerated. He continues on Eliquis as previous treatment with Coumadin was difficult to manage. No new side effects of concern. He has a nonproductive cough with positive sick contacts with his family. No change in this and it may be getting better. His edema is significant but he is currently taking Lasix and Metolazone. He has lost approximately 17 pounds since making this adjustment. He still has significant edema and we will continue the regimen until we can switch it to as needed. His skin after two cycles did not show the ability to resect this but we plan to get repeat imaging at the end of January to see if it is now appropriate to move forward with surgery. We discussed today again how it may now be possible to resect this, in which case chemotherapy would be palliative. He expresses understanding with this. ONCOLOGY HISTORY Patient is a 68-year old male who presented in September 2018 with weight loss, jaundice, and acute kidney injury. CT scan showed a large pancreatic head mass measuring 5 x 4.4 x 5.5 cm with possible invasion in the duodenum that encased the SMA, GDA, mesenteric vessels, and near occlusion of the SMV. The distal common bile duct and pancreatic duct were both obstructed. He was noted to have a creatinine of 6 with evidence of adrenal insufficiency. CA19-9 was 3,010. ERCP was attempted on October 04, 2018, without success. He had a biliary stent placed on October 16, 2018. Total bilirubin has decreased and normalized. He began FOLFIRINOX on November 12, 2018. Dose was decreased by 25% with cycle #2 due to excessive toxicity. PAST MEDICAL HISTORY 1. Type 2 diabetes. 2. Hyperlipidemia. 3. Hypertension. 4. Obstructive sleep apnea. 5. Gout. 6. Locally advanced pancreatic cancer, September 2018. 7. Atrial fibrillation. FAMILY HISTORY Remarkable for mainly GI cancers in his family. Patient deferred genetic testing at this time. SOCIAL HISTORY Patient is . They have one grown daughter. 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 MEDICATIONS 1. Toujeo. 2. NovoLog. 3. Spironolactone 50 mg daily. 4. Lipitor 40 mg daily. 5. Eliquis. 6. Fluoxetine 40 mg daily. 7. Allopurinol 300 mg daily. 8. Vitamin D3. 9. Metoprolol 50 mg daily. 10. Omeprazole 20 mg daily. 11. Dicyclomine 20 mg q.i.d. p.r.n. abdominal cramping. 12. Meloxicam. ALLERGIES 1. PENICILLIN. 2. DOXYCYCLINE. REVIEW OF SYSTEMS CONSTITUTIONAL: No fevers, chills or significant weight change. HEENT: No headache or vision changes. CARDIOVASCULAR: No chest pain, dyspnea on exertion, edema. RESPIRATORY: No shortness of breath, wheeze or cough. GASTROINTESTINAL: No abdominal pain, nausea, vomiting, constipation, or diarrhea. He reports normal bowel habits. GENITOURINARY: He denies any dysuria, hematuria, or genitourinary discharge. The patient reports that he has appropriately diuresed since re-initiating diuretic therapy a week or two ago. MUSCULOSKELETAL: He continues to report some generalized weakness and fatigue as well as some lower back pain, which has been chronic. No new focal symptoms. NEUROLOGIC: Patient denies any headache or any current expressive aphasia. He did have expressive aphasia or symptoms related to that when in the ER. ENDOCRINE: No heat or cold intolerance. PSYCHIATRIC: He denies any severe anxiety, severe depression, suicidal or homicidal ideation. DERM: He denies any suspicious lesions or rash. EXTREMITIES: He continues to have some lower extremity edema bilaterally but reports significant improvement. He is finding ambulation much easier now. PHYSICAL EXAMINATION VITAL SIGNS: Weight 94.9 kg, down from 99 kg on 12/17/18. T 97.9, P 88, R 16, BP 96/58, oxygen saturation 94% room air. GENERAL: This is a pleasant, chronically ill-appearing 68-year-old gentleman who is in no acute distress. HEAD: Normocephalic, atraumatic. EYES: Sclerae anicteric. CARDIOVASCULAR: Regular rate and rhythm. LUNGS: Clear breath sounds to auscultation bilaterally. ABDOMEN: Soft, obese, nontender, nondistended. No masses or organomegaly. NEUROLOGIC: Patient is awake, alert, oriented times three. He reports an occasional headache while in the ER over the weekend. PSYCHIATRIC: Mood and affect are within normal limits. EXTREMITIES: 2+ bilateral lower extremity edema confined to just below the knee bilaterally. This has much improved over the last week and a half. No clubbing. No cyanosis. MUSCULOSKELETAL: No pain to palpation of bony spinous processes, though patient does report chronic lower back pain. LABORATORY CBC today: WBC 7.9, ANC 6.0, hemoglobin 11.1, hematocrit 33.1%, platelets 351,000. CMP currently pending. IMAGING MRI brain without contrast at [facility] on 12/22/2018: 1. No hemorrhage or mass. 2. Mild chronic white matter disease. No acute ischemia. CTA of the head and neck at [facility] on 12/22/2018: 1. Head and neck mild atherosclerosis. No stenosis, occlusion, aneurysm, or dissection. 2. Cervical spine mild degenerative changes described above. 3. Dilated main pulmonary artery suggestive of pulmonary artery hypertension. 4. Coronary calcifications. CT chest, abdomen, and pelvis with contrast at [facility] on 12/04/2018: 1. Imaging of chest revealed no concerning pulmonary nodule, lymphadenopathy, or pleural effusion. 2. Imaging of the abdomen revealed interval placement of a common bile duct stent with mild intrahepatic biliary ductal dilatation and pneumobilia. Stable ill-defined pancreatic head mass with increasing adjacent soft tissue stranding with soft tissue stranding encasing multiple vascular structures outlined above. Borderline enlarged gastrohepatic ligament and uriah caval lymph nodes. 3. Imaging of bones revealed new mild superior endplate compression fracture at L4. Recommend clinical correlation for back pain and recent trauma. IMPRESSION AND PLAN Mr. Ricardo is a pleasant 68-year-old gentleman with locally advanced, currently unresectable pancreatic cancer. He has completed three cycles with FOLFIRINOX. He did require a 25% dose reduction starting with his second cycle secondary to toxicity. We plan to continue with his dose reduction. He also had some neutropenia which required a one-week dose delay; however, this resolved. He has had some electrolyte abnormalities, which include hypomagnesemia which we have replaced in the clinic, as well as hypokalemia, also replaced in the clinic. He is currently on Eliquis b.i.d. for his history of atrial fibrillation. He has not followed up with Cardiology. He also has diabetes and reports that he is currently only on insulin and is on a NovoLog sliding scale per Dr. Farhan, his primary care physician. He has had some chronic back pain, and an MRI was ordered at his last visit, which just was recently approved to evaluate for metastatic disease. We are planning to re- image at the end of January to assess treatment response. He did have worsening bilateral lower extremity edema about one to two weeks ago and was re-initiated on diuretics with daily furosemide, metolazone, as well as potassium chloride supplement b.i.d. He reports good compliance, though tells me that he is only taking one of each daily, which he adjusted himself. He did diurese quite a bit and is down approximately 17 pounds, and his lower extremity edema has significantly improved. He was in the Emergency Room over the weekend for reports of symptoms consistent with a stroke, to include confusion and expressive aphasia. He was admitted for approximately a day and a half and was discharged as workup was negative, to include normal CTA of the head and neck, as well as normal CT and normal MRI of the brain. He is completely alert and oriented times three today and does not have any signs of cerebrovascular accident or transient ischemic attack on exam and has no difficulty speaking. He did have some elevated blood sugars as high as mid 300s. He was also mildly hypotensive upon discharge, though tends to run low. Lastly, CT of the head and neck a couple of days ago did show suggestions of pulmonary artery hypertension. CBC today is within normal limits, though chemistry panel is still currently pending. He has received intravenous fluid the week after chemotherapy in the past and believes that this may have attributed to his expressive aphasia and other symptomatology as he did not intravenous fluids after his third cycle. I explained that I do feel that he needs cardiac evaluation. He would like to restart tramadol as he states he was only taking one tablet at bedtime for pain. 1. Locally advanced unresectable pancreatic cancer, currently on FOLFIRINOX: We will continue with his 25% dose reduction, and patient will be for Cycle #4 next week. 2. Electrolyte imbalance: Currently, CMP is pending. If he has any hypokalemia or other abnormalities, will plan to have the patient return to clinic for replacement. 3. History of atrial fibrillation: Currently on Eliquis. I have instructed the patient to continue on Eliquis. 4. Atrial fibrillation/pulmonary hypertension: I have instructed the patient that he needs to follow up with Cardiology as well as his primary care physician. He would like recommendation to a different glassware maker, and we will make referral today. 5. Back pain: I have instructed the patient that he may go ahead and re- initiate tramadol as he is only taking one tablet at bedtime. 6. Lower extremity edema: Patient will continue on his diuretics, currently taking one furosemide and one metolazone daily. Instructed that he needs to remain compliant with his patient supplementation daily as well. 7. Instructed the patient that he needs to see primary care physician regarding his diabetes and insulin. 8. Patient will return to clinic next week as scheduled for Cycle #4. MTDD
[2018-12-31 08:59] VITALS: BP 108/63
[2018-12-31] MEDS: LIDOCAINE/SOD BICARB 8.4% SYR ID PRN (10:07)
[2018-12-31] MEDS: NS(*) 0.9% 500 ML BAG 500 ML IV PRN (10:07)
[2018-12-31] MEDS: PALONOSETRON 0.25 MG/5 ML VIAL IVP PRN (12:01)
[2018-12-31] MEDS: DEXAMETHASONE SOD PHOS 10MG/ML IVP PRN (12:01)
[2018-12-31] MEDS: DEXTROSE 5%(*) 100 ML BAG 100 ML IVPB PRN (12:30)
--- NOTE | 2018-12-31 13:39 | ONCOLOGY FOLLOW UP NOTE ---
EVENT DATE: December 31, 2018 HISTORY OF PRESENT ILLNESS Mr. Ricardo is here today for followup and consideration of starting Cycle #4, Day1 with FOLFIRINOX. I did see him last week after he was admitted after the ER for stroke-like symptoms. Workup at that time, which included head imaging, was all negative and he was subsequently discharged. His FOLFIRINOX has been dose reduced by 25%. He continues on Eliquis b.i.d. for atrial fibrillation. He was previously on Coumadin but found this difficult to manage. He denies any bleeding complications. He has had some significant bilateral lower extremity edema, previously noted up to the mid thighs, at least 3+. For the last couple of weeks, this has improved and he is now back on daily diuretics with one Lasix daily and one metolazone daily. He has diuresed quite well and has lost approximately 17 pounds since. He still has some lower extremity edema but this has improved, not worse than 1/2+ to below the knee. He is able to ambulate much better now. He did see a brigadier for consultation but has not been back since diagnosed with atrial fibrillation. His diabetes and hypertension have been managed by Dr. Real, his PCP. He will be seeing Dr. Real this coming for followup. His blood glucose has been quite elevated over the last few weeks but he tells me today that he is not taking his insulin as he should. He is currently only on an insulin sliding scale and no oral medications. He was on Metformin up until May 2018, when he switched primary care physicians. He refuses to take Metformin, as he reports that he had significant side effects in the form of diarrhea and upset stomach. Today, he admits that over the last few days he has only taken his insulin once, in the morning, and on recheck was not that much better and has been running in the mid 300s. He tells me that he simply is not taking this as prescribed because of the hassle with daily injections. He was seen in our office for IV fluid hydration on Monday and he reports having a great day on Monday. He tells me that his mobility had improved, his back pain had decreased on Monday to almost none and he was doing so well that he actually had energy to go walk around [employer] & other things you bake. He does admit to taking occasional ibuprofen as well as Tylenol intermittently along with his Tramadol at bedtime for his back pain. The MRI of the spine, which was ordered several weeks ago, has now been approved by insurance. He is now contemplating whether or not he needs to have this done. He denies any nausea, vomiting or significant diarrhea. He tells me that he typically has some constipation but is on stool softeners twice daily. He occasionally has some loose stools, no more than three, following chemotherapy but he is not quite sure of the pattern. He reports there has not been any need to take any anti-diarrheals but that this is simply a nuisance because at times this is quite urgent. No mouth sores. He reports that he is eating and drinking fluids well but only eats when he is hungry and at times does skip meals and, thus, does not treat himself with insulin. ONCOLOGY HISTORY Patient is a 68-year old male who presented in September 2018 with weight loss, jaundice, and acute kidney injury. CT scan showed a large pancreatic head mass measuring 5 x 4.4 x 5.5 cm with possible invasion in the duodenum that encased the SMA, GDA, mesenteric vessels, and near occlusion of the SMV. The distal common bile duct and pancreatic duct were both obstructed. He was noted to have a creatinine of 6 with evidence of adrenal insufficiency. CA19-9 was 3,010. ERCP was attempted on October 04, 2018, without success. He had a biliary stent placed on October 16, 2018. Total bilirubin has decreased and normalized. He began FOLFIRINOX on November 12, 2018. Dose was decreased by 25% with cycle #2 due to excessive toxicity. He has now completed three cycles. PAST MEDICAL HISTORY 1. Type 2 diabetes. 2. Hyperlipidemia. 3. Hypertension. 4. Obstructive sleep apnea. 5. Gout. 6. Locally advanced pancreatic cancer, September 2018. 7. Atrial fibrillation. FAMILY HISTORY Remarkable for mainly GI cancers in his family. Patient deferred genetic testing at this time. SOCIAL HISTORY Patient is . They have one grown daughter. 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 MEDICATIONS 1. Toujeo. 2. NovoLog. 3. Spironolactone 50 mg daily. 4. Lipitor 40 mg daily. 5. Eliquis. 6. Fluoxetine 40 mg daily. 7. Allopurinol 300 mg daily. 8. Vitamin D3. 9. Metoprolol 50 mg daily. 10. Omeprazole 20 mg daily. 11. Dicyclomine 20 mg q.i.d. p.r.n. abdominal cramping. 12. Meloxicam. ALLERGIES 1. PENICILLIN. 2. DOXYCYCLINE. REVIEW OF SYSTEMS CONSTITUTIONAL: Mr. Ricardo denies any recent fevers, chills, night sweats or infections. HEENT: He has some occasional nasal drainage. He also has an occasional productive cough but reports that this is nothing new. He denies any vision changes. CARDIOVASCULAR: He denies any chest pain, dyspnea on exertion, palpitations, syncope or presyncope. RESPIRATORY: He has an occasional cough. No shortness of breath. No wheezes. GASTROINTESTINAL: No abdominal pain. No nausea or vomiting. He has occasional constipation with occasional diarrhea, although does not usually have more than two to three loose stools when this occurs. He denies any bright red blood per rectum or melena. He reports his appetite is fairly stable. GENITOURINARY: Patient denies any dysuria, hematuria or genitourinary discharge. MUSCULOSKELETAL: He continues to have some generalized weakness and fatigue as well as some lower back pain, which has been chronic. No new focal symptoms. He states that in general his back pain is improved compared to when this first started, although it is still there. NEURO: He denies any headaches, numbness or tingling. No further episodes of expressive aphasia. ENDOCRINE: No heat or cold intolerance. He does have some fatigue. He admits that he's not taking his insulin as prescribed. Yesterday he only took his morning insulin though he's on a sliding scale and should be taking it with every meal. PSYCHIATRIC: He denies any severe anxiety, severe depression, suicidal or homicidal ideation. DERM: He denies any suspicious lesions or rash. EXTREMITIES: He continues to have lower extremity edema bilaterally but this has significantly improved. Currently, he reports that this is confined to below the knees and no longer feels tight. He is able to ambulate much easier now. The remainder of a 12- point review of systems is performed and was otherwise negative. PHYSICAL EXAMINATION VITAL SIGNS: Weight 92.4 kg, down 2 kg, T 96.9, P 90, R 16, BP 108/63, oxygen saturation 91% room air. GENERAL: This is a pleasant, chronically ill-appearing 68-year-old gentleman who appears to be in no acute distress. HEAD: Normocephalic, atraumatic. EYES: Sclerae anicteric. CARDIOVASCULAR: Regular rate and rhythm. I do not detect atrial fibrillation at this time, although heart sounds are somewhat distant, likely related to body habitus. LUNGS: Clear breath sounds to auscultation bilaterally. No wheezes, rales or rhonchi. Chest expansion is symmetrical. Respiratory effort is normal. ABDOMEN: Soft, obese, nontender, nondistended. No masses or organomegaly. NEUROLOGIC: Patient is awake, alert, oriented x3. PSYCHIATRIC: Mood and affect are within normal limits. EXTREMITIES: 1 to 2+ bilateral lower extremity edema confined to below the knees bilaterally. This is a significant improvement. No clubbing. No cyanosis. MUSCULOSKELETAL: No pain to palpation of bony spinous processes, although patient does report chronic lower back pain. LABORATORY CBC today: WBC 6.0, ANC 4.2, hemoglobin 12.2, hematocrit 36.7%, platelets 208,000. CMP today: Sodium improved at 135, potassium 3.5, serum creatinine improved to 0.90, calcium normal at 9.4, blood glucose elevated at 249 today, phosphorus normal at 3.3. Magnesium low down to 0.9 today, total bilirubin normal at 0.7. Liver enzymes improved as well with alkaline phosphatase improved down to 130 today. AST normal at 19, ALT normal at 21. IMAGING MRI brain without contrast at [facility] on December 22, 2018: 1. No hemorrhage or mass. 2. Mild chronic white matter disease. No acute ischemia. CTA of the head and neck at [facility] on December 22, 2018: 1. Head and neck mild atherosclerosis. No stenosis, occlusion, aneurysm, or dissection. 2. Cervical spine mild degenerative changes described above. 3. Dilated main pulmonary artery suggestive of pulmonary artery hypertension. 4. Coronary calcifications. CT chest, abdomen, and pelvis with contrast at [facility] on December 04, 2018: 1. Imaging of chest revealed no concerning pulmonary nodule, lymphadenopathy, or pleural effusion. 2. Imaging of the abdomen revealed interval placement of a common bile duct stent with mild intrahepatic biliary ductal dilatation and pneumobilia. Stable ill-defined pancreatic head mass with increasing adjacent soft tissue stranding with soft tissue stranding encasing multiple vascular structures outlined above. Borderline enlarged gastrohepatic ligament and uriah caval lymph nodes. 3. Imaging of bones revealed new mild superior endplate compression fracture at L4. Recommend clinical correlation for back pain and recent trauma. IMPRESSION AND PLAN Mr. Ricardo is a pleasant 68-year-old gentleman with locally advanced, currently unresectable pancreatic cancer. He has completed three cycles with FOLFIRINOX. He did require a 25% dose reduction starting with his second cycle secondary to toxicity. We plan to continue with his dose reduction. He also had some neutropenia which required a one-week dose delay; however, this resolved. He has had some electrolyte abnormalities, which include hypomagnesemia which we have replaced in the clinic, as well as hypokalemia, also replaced in the clinic. He is currently on Eliquis b.i.d. for his history of atrial fibrillation. He has not followed up with Cardiology. He also has diabetes and reports that he is currently only on insulin and is on a NovoLog sliding scale per Dr. Real, his primary care physician. He admits that he is not administering his insulin as prescribed and admits that his blood sugars have been consistently high. He is scheduled to follow up with his PCP later this week. He has had some chronic back pain and MRI that was ordered several weeks ago was just approved. He is questioning whether or not he should have this done. He has also had some worsening bilateral lower extremity edema which has significantly improved and is currently stable with daily furosemide and metolazone one tablet each, as well as potassium supplements b.i.d. His potassium is normal today, although he does have hypomagnesemia again. He has not had any recurrence of symptoms related to stroke, which he was recently admitted for about a week ago. He has not had any further confusion or expressive aphasia. He denies any bleeding complications. We are planning to re-image at the end of January to assess treatment response. He received IV fluid hydration on Monday to help with his renal insufficiency and hyponatremia. His counts have improved. He reports that he felt excellent the day after. He had a very good day Monday and our plan is to hydrate him on the weeks off from treatment. He is back on Tramadol at bedtime. 1. Locally advanced unresectable pancreatic cancer, currently on FOLFIRINOX: We will continue with his 25% dose reduction. He will proceed with Cycle #4, Day 1, today. 2. Hypomagnesemia: Patient will be receiving magnesium IV 2 grams for replacement. He will also start magnesium tablets, which he has at home, and will start off with one daily. Plan is to recheck chemistry panel with magnesium on Monday when he returns to clinic for his pump disconnect. I explained to patient that if he still has hypomagnesemia on that day that we will plan to treat this appropriately with correct. 3. History of atrial fibrillation: Currently on Eliquis. He is to remain on Eliquis b.i.d. and is aware to alert us for any signs or symptoms consistent with bleeding. 4. Atrial fibrillation/pulmonary hypertension: I again instructed the patient that he needs to follow up with Cardiology as well as his primary care physician. He will be seeing Dr. Real, his PCP, later this week. 5. Back pain: Currently controlled with Tramadol at bedtime and occasional Tylenol. 6. MRI spine: Patient states that he will go ahead and proceed with his MRI of the spine, see #5, as this does impact his mobility, sleep and ambulation at times. 7. Bilateral lower extremity edema: Much improved, currently stable with 1 to 2+ bilateral lower extremity edema to below the knees. He will continue with his daily regimen with furosemide and metolazone one tablet each daily along with his potassium supplementation twice daily. 8. Diabetes: Again, being managed by PCP. Discussed the need for better compliance with this. His , who is at the bedside, agrees and tells me that she tells him this all the time. 9. Treatment response. Imaging: Our plan is to repeat imaging at the end of January to assess treatment response. Patient is aware. 10. Patient will return to the clinic as noted above. He will return to clinic next week for followup with his medical oncologist, Dr. Evans, as scheduled on January 07, 2019. [facility]
[2018-12-31 16:36] VITALS: BP 107/65
[2019-01-02 15:00] VITALS: BP 102/60
[2019-01-02] MEDS: HEPARIN FLSH (PORT) 500 UN/5ML IVP PRN (15:40)
[2019-01-07 09:55] VITALS: BP 81/54
[2019-01-07 10:13] LABS: PLATELET COUNT, AUTOMATED 249 K/uL (150-450)
[2019-01-07] MEDS: LIDOCAINE/SOD BICARB 8.4% SYR ID PRN (11:28)
[2019-01-07] MEDS: NS(*) 0.9% 100 ML BAG 100 ML IVPB PRN (11:28)
[2019-01-07 13:55] VITALS: BP 86/55
[2019-01-07] MEDS: HEPARIN FLSH (PORT) 500 UN/5ML IVP PRN (15:46)
--- NOTE | 2019-01-08 09:38 | [facility] ONCOLOGY NOTE ---
EVENT DATE: January 07, 2019 CHIEF COMPLAINT/REASON FOR VISIT Mr. Ricardo is a pleasant 68-year old gentleman with advanced pancreatic cancer, currently unresectable, that is here prior to cycle 5, day 1, of FOLFIRINOX chemotherapy. His second cycle and subsequent cycles required a 25% dose-reduction due to toxicity. HISTORY OF PRESENT ILLNESS Mr. Ricardo returns. His third cycle was delayed due to neutropenia. He has recovered and received cycle #3 and #4 without major issue. In general, these cycles have been tolerated similarly to the second cycle. His fatigue is moderate. He describes himself at "60%". He continues on Eliquis. No new side effects of concern. His biggest complaint is back pain, which seems to be related to muscle spasms. We have been struggling to maintain his magnesium and labs are pending today. I anticipate he will need magnesium again based on his symptoms. His scan, after two cycles, did not show the ability to resect his tumor but we plan to repeat imaging at the end of January to see if it is now more appropriate to move forward with surgery. ONCOLOGY HISTORY Patient is a 68-year old male who presented in September 2018 with weight loss, jaundice, and acute kidney injury. CT scan showed a large pancreatic head mass measuring 5 x 4.4 x 5.5 cm with possible invasion in the duodenum that encased the SMA, GDA, mesenteric vessels, and near occlusion of the SMV. The distal common bile duct and pancreatic duct were both obstructed. He was noted to have a creatinine of 6 with evidence of adrenal insufficiency. CA19-9 was 3,010. ERCP was attempted on October 04, 2018, without success. He had a biliary stent placed on October 16, 2018. Total bilirubin has decreased and normalized. He began FOLFIRINOX on November 12, 2018. Dose was decreased by 25% with cycle #2 due to excessive toxicity. PAST MEDICAL HISTORY 1. Type 2 diabetes. 2. Hyperlipidemia. 3. Hypertension. 4. Obstructive sleep apnea. 5. Gout. 6. Locally advanced pancreatic cancer, September 2018. 7. Atrial fibrillation. FAMILY HISTORY Remarkable for mainly GI cancers in his family. Patient deferred genetic testing at this time. SOCIAL HISTORY Patient is . They have one grown daughter. 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 MEDICATIONS 1. Toujeo. 2. NovoLog. 3. Spironolactone 50 mg daily. 4. Lipitor 40 mg daily. 5. Eliquis. 6. Fluoxetine 40 mg daily. 7. Allopurinol 300 mg daily. 8. Vitamin D3. 9. Metoprolol 50 mg daily. 10. Omeprazole 20 mg daily. 11. Dicyclomine 20 mg q.i.d. p.r.n. abdominal cramping. 12. Meloxicam. ALLERGIES 1. PENICILLIN. 2. DOXYCYCLINE. REVIEW OF SYSTEMS CONSTITUTIONAL: No fevers, chills or significant weight change. HEENT: No headache or vision changes. CARDIOVASCULAR: No chest pain, dyspnea on exertion, edema. RESPIRATORY: No shortness of breath, wheeze or cough. GI: No nausea or vomiting. : No dysuria or hematuria. MUSCULOSKELETAL: Positive fatigue and weakness but no focal symptoms. ENDOCRINE: No heat or cold intolerance. PSYCHIATRIC: No anxiety or depression currently. SKIN: No concerning rashes or lesions. Remainder of 14-point review of systems is otherwise negative. PHYSICAL EXAMINATION VITAL SIGNS: Blood pressure 81/54 prior to fluids, pulse 86, respiratory rate 16, temperature 96.9 F, oxygen saturation 97% on room air, weight 91.9 kg. Pain 6/10 in the low back. Fatigue 4/10. GENERAL: Stable condition, resting comfortably in the chair. ECOG performance status of 1. The patient continues to be able to work. He is losing weight slowly but we are working with dietary recommendations to try maintain his weight. LYMPHATIC: No appreciable cervical, supraclavicular or axillary adenopathy. ABDOMEN: Soft, nontender. Pressing on his abdomen does exacerbate his back pain some. I am concerned that this is musculoskeletal and not related to the compression fracture in his spine, which we believe is unrelated to disease. CARDIOVASCULAR: Regular rate and rhythm. Rare skipped beat but I believe this is normal sinus rhythm. EXTREMITIES: No clubbing or cyanosis, trace edema. Edema is considerably improved compared to November 2018. Remainder of physical exam is otherwise unremarkable. IMPRESSION/REPORT/PLAN Mr. Ricardo is a pleasant 68-year-old gentleman with the followin. Locally advanced, currently unresectable pancreatic cancer. We are ready to proceed with cycle #5 of FOLFIRINOX next week at the same dosing. 2. Hypomagnesemia. I believe this is related to his back pain and spasms as well. Very likely we will replace with IV. His labs are pending today. 3. Hypokalemia. He continues to take oral potassium supplements. 4. History of atrial fibrillation, on Eliquis. He has a seemingly very irregular rhythm today but ECG not done. 5. Back pain. I currently believe this is more related to muscle spasm. 6. Episode of delirium approximately two weeks ago. Suspect this is related to chemotherapy, electrolyte disturbances and low blood pressure. The patient believes it is related to drug interaction, which I believe led to these other issues. We plan to move forward with scans on February 06 and we will proceed with chemotherapy aggressively until that time at a minimum. I am hopeful that he will become a surgical candidate but I am very concerned that this will not be the case. We discussed this again today. He is hopeful that he will become a surgical candidate. I answered all of his questions today. Billing Return visit level 4. Total time 30 minutes, counseling time 25. MTDD
[2019-01-10 15:04] VITALS: BP 106/69
[2019-01-10] MEDS: LIDOCAINE/SOD BICARB 8.4% SYR ID PRN (15:07)
[2019-01-10] MEDS: HEPARIN FLSH (PORT) 500 UN/5ML IVP PRN (15:07)
[2019-01-10] MEDS: NS(*) 0.9% 1000 ML BAG 1,000 ML IV PRN (15:08)
[2019-01-10 18:10] VITALS: BP 109/62
[2019-01-14 09:00] VITALS: BP 103/66
[2019-01-14] MEDS: LIDOCAINE/SOD BICARB 8.4% SYR ID PRN (09:38)
[2019-01-14] MEDS: HEPARIN FLSH (PORT) 500 UN/5ML IVP PRN (09:38)
[2019-01-14] MEDS: NS(*) 0.9% 500 ML BAG 500 ML IV PRN (09:42)
[2019-01-14] MEDS: PALONOSETRON 0.25 MG/5 ML VIAL IVP PRN (12:45)
[2019-01-14] MEDS: DEXAMETHASONE SOD PHOS 10MG/ML IVP PRN (12:45)
[2019-01-14 13:07] VITALS: BP 124/75
[2019-01-14 17:15] VITALS: BP 115/62
--- NOTE | 2019-01-15 23:17 | ONCOLOGY FOLLOW UP NOTE ---
EVENT DATE: January 14, 2019 DIAGNOSIS Locally advanced, currently unresectable pancreatic cancer. CHIEF COMPLAINT Mr. Ricardo is here today for ongoing follow up of his advanced pancreatic cancer, which is currently unresectable. He is here for FOLFIRINOX Day 8, Cycle #5. His second cycle and all subsequent cycles have required a 25% dose reduction secondary to toxicity. HISTORY OF PRESENT ILLNESS Mr. Ricardo returns. His third cycle was delayed due to neutropenia. He has recovered and received Cycles #3 and #4 without major issue. In general, these cycles have been tolerated similarly to the second cycle. His fatigue is moderate. He describes himself at "60%." He continues on Eliquis. No new side effects of concern. His biggest complaint has been back pain, which has seemed to be related to muscle spasms. We have also been struggling to maintain his magnesium levels and potassium levels. He has been hypokalemic and remains on oral potassium. He remains on diuretic secondary to bilateral lower extremity edema, which has recently been improved and in stable condition. We do anticipate that he will continue to need magnesium based on his symptomatology. After two cycles, his scan did not show the ability to resect his tumor, but we do plan to repeat imaging at the end of January in order to reevaluate if it is now more appropriate to move forward with surgery. He has tramadol which he uses at night for pain, approximately one, occasionally two tablets at bedtime. Today, he tells me that he is occasionally using this during the day one to two tablets as well. He also has been using ibuprofen up to five tablets a day as well as one or two Tylenol. He tells me that he believes this is the only thing that actually helps his pain. Bone scan was recently ordered due to findings on MRI of the lumbar spine. Bone scan is currently pending. ONCOLOGY HISTORY Patient is a 68-year old male who presented in September 2018 with weight loss, jaundice, and acute kidney injury. CT scan showed a large pancreatic head mass measuring 5 x 4.4 x 5.5 cm with possible invasion in the duodenum that encased the SMA, GDA, mesenteric vessels, and near occlusion of the SMV. The distal common bile duct and pancreatic duct were both obstructed. He was noted to have a creatinine of 6 with evidence of adrenal insufficiency. CA19-9 was 3,010. ERCP was attempted on October 04, 2018, without success. He had a biliary stent placed on October 16, 2018. Total bilirubin has decreased and normalized. He began FOLFIRINOX on November 12, 2018. Dose was decreased by 25% with Cycle #2 due to excessive toxicity. He had a CT chest, abdomen, and pelvis on 12/04/18. He had an MRI of the lumbar spine on 01/07/19. Results from the MRI revealed likely subacute L2 and L4 wedge compression fractures. Underlying metastatic disease particularly at L2 could not be excluded. Therefore, total bone scan was ordered. PAST MEDICAL HISTORY 1. Type 2 diabetes. 2. Hyperlipidemia. 3. Hypertension. 4. Obstructive sleep apnea. 5. Gout. 6. Locally advanced pancreatic cancer, September 2018. 7. Atrial fibrillation. FAMILY HISTORY Remarkable for mainly GI cancers in his family. Patient deferred genetic testing at this time. SOCIAL HISTORY Patient is . They have one grown daughter. 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 MEDICATIONS 1. Toujeo. 2. NovoLog. 3. Spironolactone 50 mg daily. 4. Lipitor 40 mg daily. 5. Eliquis. 6. Fluoxetine 40 mg daily. 7. Allopurinol 300 mg daily. 8. Vitamin D3. 9. Metoprolol 50 mg daily. 10. Omeprazole 20 mg daily. 11. Dicyclomine 20 mg q.i.d. p.r.n. abdominal cramping. 12. Meloxicam. ALLERGIES 1. PENICILLIN. 2. DOXYCYCLINE. REVIEW OF SYSTEMS CONSTITUTIONAL: Patient denies any recent fevers, chills, or night sweats. He believes his weight has been stable. HEENT: No vision changes. No significant epistaxis or nasal drainage. No mouth sores. CARDIOVASCULAR: He denies any chest pain, syncope, or presyncope. RESPIRATORY: He denies any cough, shortness of breath, pleuritic chest pain, or hemoptysis. GASTROINTESTINAL: No abdominal pain, nausea, or vomiting. He has occasional constipation. No diarrhea, bright red blood per rectum, or melena. Appetite is stable. GENITOURINARY: No dysuria or hematuria. MUSCULOSKELETAL: Positive for lower back pain. There have been no focal symptoms. ENDOCRINE: No heat or cold intolerance. He continues to report fatigue and overall decreased endurance. PSYCHIATRIC: He reports a history of depression and remains on fluoxetine daily. He denies any severe depression, severe anxiety, suicidal or homicidal ideation. He does tell me today that he believes that his mood and outlook may be a little bit worse and overall have not improved. SKIN: He denies any rash or suspicious lesions. EXTREMITIES: His bilateral lower extremity edema has been stable. No worsening. Remainder of a 12-point review of systems is performed today and is otherwise negative. PHYSICAL EXAMINATION VITAL SIGNS: Weight today 90.8 kg, down from 91.5 kg on 01/07/19. T 97.2, P 86, R 16, BP 115/62, oxygen saturation 92% room air. GENERAL: In general, this is a pleasant, somewhat obese, chronically ill- appearing 68-year-old man who appears to be in no acute distress. He still continues to work. He has slowly been losing weight, but we are working with dietary recommendations to try and maintain his weight. Currently rates his pain level as 1/10. HEAD: Normocephalic, atraumatic. EYES: Sclerae anicteric. ENT, MOUTH: No mucositis. No suspicious lesions. NECK: Supple. No lymphadenopathy. No JVD. LUNGS: Clear breath sounds to auscultation bilaterally. No wheezes, rales, or rhonchi. CARDIOVASCULAR: Regular rate and rhythm. EXTREMITIES: Bilateral lower extremity edema has been stable and considerably improved compared to November 2018. No clubbing or cyanosis. PSYCHIATRIC: Mood and affect are appropriate. NEUROLOGIC: Patient is awake, alert, oriented times three. MUSCULOSKELETAL: Gait is steady. Not assessed as patient is resting comfortably in a chair. LABORATORY CBC today: WBC 5.3, ANC 3.5, hemoglobin 11.9, hematocrit 36.1%, platelets 201,000. CMP today: Sodium improved up to 136, potassium down to 2.9, serum creatinine normal at 0.90, glucose elevated at 184, magnesium down to 1.1, glucose up to 184, calcium normal at 9.3, phosphorus normal at 2.7, total bilirubin normal at 0.6, AST normal at 21, ALT normal at 20, alkaline phosphatase normal at 124. Total protein normal at 6.8 with normal albumin of 3.6. CA19-9 on 01/07/19: 647, up from 280 on 12/10/18. IMAGING MRI lumbar spine with and without contrast on 01/07/19: 1. Likely subacute L2 and L4 wedge compression fractures with 40% L2 vertebral body height loss and 25% L4 vertebral body height loss. Marrow edema throughout the L2 vertebral body related to the fracture. No discrete L2 vertebral body metastasis. These may represent benign insufficiency fractures. Given history of pancreatic cancer, followup MRI with and without contrast should be considered in one to two months to exclude the possibility of underlying metastatic disease, particularly at L2. 2. Moderate to severe L3-L4 and L4-L5 thecal sac narrowing secondary to the constellation of chronic/degenerative findings described above. 3. Multilevel foraminal narrowing, see [id number] comments. IMPRESSION AND PLAN Mr. Ricardo is a pleasant 68-year-old gentleman with the followin. Locally advanced, currently unresectable pancreatic cancer. Patient will proceed with Cycle #5, Day 1 with FOLFIRINOX today. We will continue at current dose with the 25% dose reduction. 2. Hypokalemia: We will add replacement today with intravenous potassium chloride 20 mEq today. 3. Hypomagnesemia: We will plan to replace this when he returns for 5-FU pump disconnect. He will receive 2 g intravenously on that day, Monday this week. Patient is to continue his oral replacement. His hypomagnesemia may certainly be related to his back pain and spasms. 4. Back pain/recent imaging: Recent MRI of the lumbar spine did again show subacute L2 and L4 wedge compression fractures, and metastatic disease at L2 could not be ruled out. Therefore, when results returned late last week, bone scan was ordered to further evaluate. I did discuss this with patient last week and again today. He is going to be called likely later today for scheduling. 5. Pain: He may continue to use the tramadol at night, and he is now using this occasionally during the day. He also continues to take five or six tablets of ibuprofen daily as well as Tylenol. He is extremely concerned about his potassium level related to his ibuprofen. Currently, his serum creatinine has been in good range. I instructed him to go ahead and start decreasing his ibuprofen. He can use tramadol. He is going to decrease his ibuprofen by half or approximately two or three tablets per a 24-hour period. He may continue to use one to two Tylenol. 6. Depression: Currently on fluoxetine 40 mg daily, prescribed and managed by primary care physician. Discussed possibility of switching to a different serotonin and norepinephrine reuptake inhibitor, in particular something like Cymbalta to see if this could help both his mood as well as possibly some of his musculoskeletal pain. He is interested in this. I did discuss with patient benefits, risks, and common side effects related to Cymbalta. I also explained realistic goals with this medication. If he feels that he is still depressed and has not noticed any real change in mood, this may certainly be an option. We will try and reach out to his primary care physician to see if they agree. For now, he will continue on fluoxetine as he does have another week or two left of this prescription. 7. Patient will return to clinic next week for repeat labs. He will return to clinic later this week for his 5-FU pump disconnect, and we will replace magnesium intravenously at that point. 8. Patient will be moving forward with scans on February 06, 2019, and we will proceed with chemotherapy aggressively until that time at a minimum. We are hopeful that he will become a surgical candidate, but we are concerned that this will not be the case. 9. His CA19-9 most recently obtained on 01/07/19 was rising and jumped up to 647, up from previously 280. Again, given his diagnosis and symptomatology, this is concerning for metastatic disease or at least concerning for inoperable disease. [facility]
[~2019-01-16] VITALS: Ht 174.5 cm; Wt 90.8 kg
[~2019-01-16 14:30] MED LIST changes: +ALTEPLASE RECOMB 2 MG VIAL IVP PRN; +D5W IV ONE; +D5W IVPB ONE; +FLUOROURACIL 50 MG/ML SDV IVP ONE; +FLUOROURACIL IV ONE; +FUROSEMIDE 20 MG/2 ML VIAL IVP ONE; -GADOBENATE 529MG/1ML 15ML VIAL IVP ONE; +IOPAMIDOL 61% 75 ML INFUS BTL 75 ML ONE; +IRINOTECAN HCL IV ONE; +IRINOTECAN HCL IVPB ONE; +KCL (*) 20 MEQ/100 ML PREMIX 100 ML IVPB ONE; +KCL 2 MEQ/ML 20 MEQ/10 ML VIAL 10 MEQ in NS(*) 0.9% 1000 ML BAG 1,000 ML IV ONE; +KCL IV ONE; +LEUCOVORIN CAL IV ONE; +LEUCOVORIN CALCIUM IV ONE; +LIDOCAINE/SOD BICARB 8.4% SYR ID ONE; +LOPERAMIDE HCL 2 MG CAP PO ONE; +LOPERAMIDE HCL 2 MG CAP PO PRN; +MAGNESIUM SUL IVPB ONE; +MAGNESIUM SUL* 2 GM/50 ML IVPB 50 ML IVPB ONE; +MAGNESIUM SUL* 4 GM/100 ML BAG 100 ML IVPB ONE; +MAGNESIUM SULF 4 GM/100 ML BAG 100 ML IVPB ONE; +MAGNESIUM SULF IV ONE; +NS 0.9% IV ONE; +NS 0.9% IVPB ONE; +OXALIPLATIN IVPB ONE; +WATER FOR INJ,STERILE 20 ML IVP PRN; +[UNRECOGNIZED DRUG - OTHER] IV ONE; +[UNRECOGNIZED DRUG - OTHER] IV ONE; +[UNRECOGNIZED DRUG - OTHER] IV ONE; +[UNRECOGNIZED DRUG - OTHER] IVPB ONE; +[UNRECOGNIZED DRUG - OTHER] IVPB ONE; +[UNRECOGNIZED DRUG - OTHER] IVPB ONE
[2019-01-16 15:07] VITALS: BP 134/79
[2019-01-16] MEDS ORDERED: MAGNESIUM SUL* 2 GM/50 ML IVPB 50 ML IVPB PRN (15:10)
[2019-01-16] MEDS: NS(*) 0.9% 100 ML BAG 100 ML IVPB PRN (15:12)
[2019-01-16] MEDS: HEPARIN FLSH (PORT) 500 UN/5ML IVP PRN (16:45)
[2019-01-16 17:34] VITALS: BP 104/72
--- NOTE | 2019-01-17 13:54 | RADIOLOGY IMAGING REPORT ---
FACILITY: [facility] PATIENT NAME: Myles Ricardo : 1950 MR: [id number] V: [id number] EXAM DATE: ORDERING PHYSICIAN: NICOLE PATTERSON TECHNOLOGIST: Location: [facility] [place] Patient: Myles Ricardo : 1950 Visit/Account:[id number] Date of Sevice: 01/17/2019 NM BONE SCAN COMPLETE HISTORY: Pancreatic cancer, back pain TECHNIQUE: 25.4 mCi technetium 99m HDP was injected intravenously. Delayed anterior and posterior wh ole body gamma camera images were obtained. Additional gamma camera images: None. COMPARISON: CT chest abdomen and pelvis December 04, 2018 FINDINGS: Bone radiotracer activity: There is increased isotope uptake at the L2 and L4 vertebral bodies corre sponding to compression fracture seen on the recent CT scan there is a focal area of increased isotop e uptake over the anterior aspect of a mid right rib at the approximate level of the seventh rib. A focal area of isotope uptake also noted along the distal aspect of the left 11th rib. This correspon ds to a healing fracture as seen on the recent CT. isotope uptake of both shoulder joints is likely degenerative. Extraosseous radiotracer activity: Unremarkable. Renal and urinary collecting system activity: Unremarkable. IMPRESSION: Increased isotope uptake at L2 and L4 vertebral bodies corresponds to the compression fracture seen o n the recent CT scan. Focal advised uptake along the distal aspect of the left 11th rib corresponds to a healing fracture on the recent CT Focal area of isotope uptake along the anterior aspect of a mid right rib likely posttraumatic in toan ure Report Dictated By: Camelia Lara MD at 01/17/2019 1:43 PM Report E-Signed By: Camelia Lara MD at 01/17/2019 1:49 PM WSN:[id number]
== END 2019-01-17 ==
LOC: ONC 14:30
PROVIDERS: ATTEND Internal Medicine
DX: Z51.11 Encounter for antineoplastic chemotherapy (principal); C25.0 Malignant neoplasm of head of pancreas; E11.9 Type 2 diabetes mellitus without complications; I10 Essential (primary) hypertension; G47.33 Obstructive sleep apnea (adult) (pediatric); E78.5 Hyperlipidemia, unspecified; M10.9 Gout, unspecified; Z79.4 Long term (current) use of insulin; R17 Unspecified jaundice
CPT/HCPCS: 36415; 36591; 71260; 74177; 78306; 83735; 84100; 84443; 85025; 85027; 86301; 96360; 96361; 96365; 96366; 96367; 96368; 96374; 96375; 96411; 96413; 96415; 96416; 96417; 99202; 99212; A9503; J0640; J1100; J1642; J1940; J2469; J3475; J3480; J7030; J7040; J7050; J7060; J9190; J9206; J9263; Q9967; 82040; 82247; 82310; 82374; 82435; 82565; 82947; 84075; 84132; 84155; 84295; 84450; 84460; 84520

== ENCOUNTER → 2019-02-12 | Outpatient (CLI) | payer OTHER ==
[~2019-02-12] MED LIST changes: -ALTEPLASE RECOMB 2 MG VIAL IVP PRN; +CYCL-277 PO; -D5W IV ONE; -D5W IVPB ONE; -FLUOROURACIL 50 MG/ML SDV IVP ONE; -FLUOROURACIL IV ONE; -FUROSEMIDE 20 MG/2 ML VIAL IVP ONE; -IOPAMIDOL 61% 75 ML INFUS BTL 75 ML ONE; -IRINOTECAN HCL IV ONE; -IRINOTECAN HCL IVPB ONE; -KCL (*) 20 MEQ/100 ML PREMIX 100 ML IVPB ONE; -KCL 2 MEQ/ML 20 MEQ/10 ML VIAL 10 MEQ in NS(*) 0.9% 1000 ML BAG 1,000 ML IV ONE; -KCL IV ONE; -LEUCOVORIN CAL IV ONE; -LEUCOVORIN CALCIUM IV ONE; -LIDOCAINE/SOD BICARB 8.4% SYR ID ONE; -LOPERAMIDE HCL 2 MG CAP PO ONE; -LOPERAMIDE HCL 2 MG CAP PO PRN; -MAGNESIUM SUL IVPB ONE; -MAGNESIUM SUL* 2 GM/50 ML IVPB 50 ML IVPB ONE; -MAGNESIUM SUL* 4 GM/100 ML BAG 100 ML IVPB ONE; -MAGNESIUM SULF 4 GM/100 ML BAG 100 ML IVPB ONE; -MAGNESIUM SULF IV ONE; -NS 0.9% IV ONE; -NS 0.9% IVPB ONE; -OXALIPLATIN IVPB ONE; -WATER FOR INJ,STERILE 20 ML IVP PRN; -[UNRECOGNIZED DRUG - OTHER] IV ONE; -[UNRECOGNIZED DRUG - OTHER] IV ONE; -[UNRECOGNIZED DRUG - OTHER] IV ONE; -[UNRECOGNIZED DRUG - OTHER] IVPB ONE; -[UNRECOGNIZED DRUG - OTHER] IVPB ONE; -[UNRECOGNIZED DRUG - OTHER] IVPB ONE
== END ==
LOC: LAB 12:14
PROVIDERS: ATTEND Emergency Medicine
DX: E11.9 Type 2 diabetes mellitus without complications (principal)
CPT/HCPCS: 83036

== ENCOUNTER 2019-02-18 10:30 | Outpatient (RCR) | payer OTHER | END 2019-02-18 18:00 | disposition home or self-care (01) | LOC: PT 10:30 | PROVIDERS: ATTEND Nurse Practitioner | DX: M53.3 Sacrococcygeal disorders, not elsewhere classified (principal); C25.9 Malignant neoplasm of pancreas, unspecified; E11.9 Type 2 diabetes mellitus without complications; R29.6 Repeated falls ==

== ENCOUNTER 2019-02-27 12:58 | Emergency (ER) | payer OTHER ==
--- NOTE | 2019-02-27 13:51 | ER Report ---
History and Physical Time Seen By MD: 13:48 Hx. of Stated Complaint: PATIENT WAS SENT FROM THE [facility] OVER THE LAST 2 WEEKS HPI/ROS CHIEF COMPLAINT: Near-syncope HISTORY OF PRESENT ILLNESS: 68-year-old male history of stage IIB pancreatic cancer comes in the emergency department after being referred from the cancer center reports that last night when he stood up he normally stands up has to h old the wall to get oriented is with his balance yesterday his increasing got a doorknob instead and at a mechanical fall striking his head no loss consciousness several hours later got up from the bathroom and had some weaknesses and again loss of balance this is been going on for several weeks to several months currently on chemotherapy and radiation will be initiated soon. Patient denies any symptoms prior to or than his baseline need for orientation when he gets out of bed too quickly. Patient states that he has no chest pain shortness of breath nausea vomiting diarrhea fever chills or any additional complaints noted REVIEW OF SYSTEMS: Respiratory: No cough, no dyspnea. Cardiovascular: No chest pain, no palpitations. Gastrointestinal: No vomiting, no abdominal pain. Musculoskeletal: No back pain. Remainder of the 14 system rev: Yes Allergies: Coded Allergies: doxycycline (Verified Allergy, Mild, states causes uncontrolled bleeding, 10/11/18) Penicillins (Verified Allergy, Unknown, 10/11/18) EHR CONVERSION Home Meds Active Scripts Atorvastatin Calcium (ATORVASTATIN CALCIUM) 40 Mg Tablet, 1 TAB PO QDAY, #90 TAB 4 Refills Prov:BENITO REAL MD 02/26/19 Metoprolol Succinate (METOPROLOL SUCCINATE) 100 Mg Tab.er.24h, 0.5 TAB PO QDAY, #1 TAB Prov:BENITO REAL MD 02/12/19 Cyclobenzaprine Hcl (CYCLOBENZAPRINE HCL) 5 Mg Tablet, 10 MG PO TID PRN for Pain for 14 Days, #50 TAB 0 Refills take 1 tablet po TID PRN muscle spasm Prov:DOM VILCHIS APRN, FNP 01/28/19 Apixaban (ELIQUIS) 5 Mg Tablet, 5 MG PO BID, #180 TAB 3 Refills Prov:BENITO REAL MD 12/28/18 Meloxicam (MELOXICAM) 15 Mg Tablet, 15 MG PO QDAY, #90 TAB 3 Refills Prov:BENITO REAL MD 11/30/18 Tramadol Hcl (TRAMADOL HCL) 50 Mg Tablet, 50 MG PO Q4-6H, #30 TAB Prov:BENITO REAL MD 11/28/18 Insulin Aspart 100 Un/Ml Pen (NOVOLOG FLEXPEN) 100 Unit/1 Ml Insuln.pen, 10-45 UNIT SQ TID, #6 BOX 3 Refills Sliding Scale: <100=10 units <200=25 units >300=35 units >400=40 units >500=45 units Prov:BENITO REAL MD 11/28/18 Omeprazole (OMEPRAZOLE) 20 Mg Capsule.dr, 1 CAP PO QDAY, #30 CAP 5 Refills Prov:BENITO REAL MD 11/09/18 Insulin Glargine,Hum.rec.anlog (Toujeo Solostar) 300 Unit/1 Ml Insuln.pen, 13 UNITS SUBQ QHS, #3 BOX 3 Refills Increase by 2 units every 2 days to keep fasting blood sugars between 80-120 Prov:BENITO REAL MD 10/03/18 Fluoxetine Hcl (PROZAC) 40 Mg Capsule, 40 MG PO QDAY, #90 CAPSULE 3 Refills Prov:BENITO REAL MD 05/04/18 Allopurinol (ZYLOPRIM) 300 Mg Tablet, 1 TAB PO DAILY, #90 TAB 3 Refills Please establish care with Dr. Real on 03/09/18 for further refills. Prov:BENITO REAL MD 03/09/18 Reported Medications Magnesium Oxide (MAGOX 400) 400 Mg Tablet, 400 MG PO DAILY 01/07/19 Acetaminophen (TYLENOL) 325 Mg Tablet, 325 MG PO BID, TAB 01/07/19 Metolazone (METOLAZONE) 2.5 Mg Tablet, 2.5 MG PO DAILY 01/03/19 Furosemide (FUROSEMIDE) 20 Mg Tablet, 1 TAB PO DAILY, TAB 01/03/19 Potassium Chloride (POTASSIUM CHLORIDE) 10 Meq Tablet.er, 3 TAB PO BID 01/03/19 Dicyclomine Hcl (DICYCLOMINE HCL) 20 Mg Tablet, 20 MG PO DAILY PRN for PRN 11/28/18 Loperamide Hcl (LOPERAMIDE) 2 Mg Capsule, 2 MG PO PRN for DIARRHEA, CAPSULE Take 2 capsules at the first sign of diarrhea, then 1 capsule Q2 hours until diarrhea free for 12 hrs 11/09/18 Cholecalciferol (Vitamin D3) (VITAMIN D) 1,000 Unit Tablet, 1000 UNIT PO DAILY 08/06/18 Reviewed Nurses Notes: Yes Old Medical Records Reviewed: Yes Smoking Status: Never Smoker Exposure to Second Hand Smoke?: Yes (both parents ) Hx Substance Use Disorder: No Hx Alcohol Use: No Constitutional Vital Sign - Last 24 Hours 02/27/19 02/27/19 02/27/19 02/27/19 13:40 13:45 13:58 14:00 Pulse 104 Resp 11 B/P (MAP) 103/78 (86) 89/62 (71) 88/59 (69) Pulse Ox 99 02/27/19 02/27/19 02/27/19 02/27/19 14:15 14:28 14:30 15:00 Pulse 92 Resp 7 B/P (MAP) 100/62 (75) 101/68 (79) ???/??? (1665) Pulse Ox 98 02/27/19 02/27/19 02/27/19 02/27/19 15:05 15:28 15:30 15:45 Pulse ??? B/P (MAP) 102/76 (85) 118/106 (110) 94/56 (69) 02/27/19 02/27/19 02/27/19 02/27/19 15:50 16:00 16:20 16:30 Pulse ? B/P (MAP) 103/51 (68) ???/??? (1665) 02/27/19 02/27/19 02/27/19 02/27/19 16:45 16:50 17:00 17:15 Pulse ??? B/P (MAP) 120/81 (94) 113/65 (81) 93/68 (76) 02/27/19 17:21 B/P (MAP) 122/72 (89) Physical Exam General Appearance: The patient is alert, has no immediate need for airway protection and no current signs of toxicity. [ ] Eyes: Pupils equal and round no injection. Respiratory: Chest is non tender, lungs are clear to auscultation. Cardiac: regular rate and rhythm [ ] Gastrointestinal: Abdomen is soft and non tender, no masses, bowel sounds normal. Musculoskeletal: Neck: Neck is supple and non tender. Extremities have full range of motion and are non tender. Skin: No rashes or lesions. [ ] DIFFERENTIAL DIAGNOSIS: After history and physical exam differential diagnosis was considered for dehydration near-syncope orthostasis pulmonary embolus vasovagal syncope vertigo intracranial bleed mass or lesion Medical Decision Making Data Points Result Diagram: 02/27/19 1442 02/27/19 1442 Laboratory Hematology Test 02/27/19 14:42 Red Blood Count 3.15 M/uL (4.00-5.60) Mean Corpuscular Volume 98.5 fL (80.0-96.0) Mean Corpuscular Hemoglobin 33.1 pg (26.0-33.0) Mean Corpuscular Hemoglobin Concent 33.6 g/dL (32.0-36.0) Red Cell Distribution Width 18.7 % (11.5-14.5) Mean Platelet Volume 7.4 fL (7.2-11.1) Neutrophils (%) (Auto) 66.6 % (39.4-72.5) Lymphocytes (%) (Auto) 18.0 % (17.6-49.6) Monocytes (%) (Auto) 14.1 % (4.1-12.4) Eosinophils (%) (Auto) 1.1 % (0.4-6.7) Basophils (%) (Auto) 0.2 % (0.3-1.4) Nucleated RBC Relative Count (auto) 0.4 /100WBC Neutrophils # (Auto) 3.3 K/uL (2.0-7.4) Lymphocytes # (Auto) 0.9 K/uL (1.3-3.6) Monocytes # (Auto) 0.7 K/uL (0.3-1.0) Eosinophils # (Auto) 0.1 K/uL (0.0-0.5) Basophils # (Auto) 0.0 K/uL (0.0-0.1) Nucleated RBC Absolute Count (auto) 0.02 K/uL D-Dimer Quantitative (PE/DVT) 1.24 ug/ml (0-0.50) Sodium Level 131 mmol/L (137-145) Potassium Level 2.9 mmol/L (3.5-5.0) Chloride Level 93 mmol/L (98-107) Carbon Dioxide Level 25 mmol/L (22-30) Blood Urea Nitrogen 25 mg/dl (9-21) Creatinine 1.30 mg/dl (0.66-1.25) Glomerular Filtration Rate Calc 55.2 Random Glucose 277 mg/dl (75-110) Calcium Level 9.1 mg/dl (8.4-10.2) Total Bilirubin 0.6 mg/dl (0.2-1.3) Aspartate Amino Transf (AST/SGOT) 17 U/L (0-35) Alanine Aminotransferase (ALT/SGPT) 19 U/L (0-56) Alkaline Phosphatase 130 U/L (0-126) Troponin I < 0.012 ng/ml Total Protein 6.6 g/dl (6.3-8.2) Albumin 3.6 g/dl (3.5-5.0) Chemistry Test 02/27/19 14:42 White Blood Count 5.0 k/uL (4.5-11.0) Red Blood Count 3.15 M/uL (4.00-5.60) Hemoglobin 10.4 g/dL (14.0-18.0) Hematocrit 31.0 % (42.0-52.0) Mean Corpuscular Volume 98.5 fL (80.0-96.0) Mean Corpuscular Hemoglobin 33.1 pg (26.0-33.0) Mean Corpuscular Hemoglobin Concent 33.6 g/dL (32.0-36.0) Red Cell Distribution Width 18.7 % (11.5-14.5) Platelet Count 227 K/uL (150-450) Mean Platelet Volume 7.4 fL (7.2-11.1) Neutrophils (%) (Auto) 66.6 % (39.4-72.5) Lymphocytes (%) (Auto) 18.0 % (17.6-49.6) Monocytes (%) (Auto) 14.1 % (4.1-12.4) Eosinophils (%) (Auto) 1.1 % (0.4-6.7) Basophils (%) (Auto) 0.2 % (0.3-1.4) Nucleated RBC Relative Count (auto) 0.4 /100WBC Neutrophils # (Auto) 3.3 K/uL (2.0-7.4) Lymphocytes # (Auto) 0.9 K/uL (1.3-3.6) Monocytes # (Auto) 0.7 K/uL (0.3-1.0) Eosinophils # (Auto) 0.1 K/uL (0.0-0.5) Basophils # (Auto) 0.0 K/uL (0.0-0.1) Nucleated RBC Absolute Count (auto) 0.02 K/uL D-Dimer Quantitative (PE/DVT) 1.24 ug/ml (0-0.50) Glomerular Filtration Rate Calc 55.2 Calcium Level 9.1 mg/dl (8.4-10.2) Total Bilirubin 0.6 mg/dl (0.2-1.3) Aspartate Amino Transf (AST/SGOT) 17 U/L (0-35) Alanine Aminotransferase (ALT/SGPT) 19 U/L (0-56) Alkaline Phosphatase 130 U/L (0-126) Troponin I < 0.012 ng/ml Total Protein 6.6 g/dl (6.3-8.2) Albumin 3.6 g/dl (3.5-5.0) Coagulation Test 02/27/19 14:42 D-Dimer Quantitative (PE/DVT) 1.24 ug/ml ED Course/Re-evaluation ED Course 68 show male history of pancreatic cancer comes in with near syncopal episodes workup is consistent of a head CT CT pulmonary angiography which did show some new compression fractures concerning for potential pathological metastatic progression of his disease state presses workup is essentially negative he was able to ambulate without much issue patient is comfortable going home with the understanding if symptoms worsen or come back and unclear etiology as well as having these weakness and these episodes could be cerebellar A could also be syncopal recommending follow-up MRI is needed since is however quite some time I don't think this an acute process however the neurosurgery or neurology would be of benefit Decision to Disposition Date: February 27, 2019 Decision to Disposition Time: 17:32 Depart Departure Latest Vital Signs Vital Signs Date Time Temp Pulse Resp B/P (MAP) Pulse Ox O2 Delivery O2 Flow Rate FiO2 02/27/19 17:21 122/72 (89) 02/27/19 16:50 ??? 02/27/19 14:28 7 98 Impression: Primary Impression: Near syncope Condition: Improved Disposition: HOME OR SELF-CARE Departure Forms: Home Oxygen, Nebulizer RX Home Oxygen Company Chosen by Patient: [employer] Durable Medical Equipment-Oxygen: Portable Oxygen Gas Reason for Use/Diagnosis: ALTITUDE SICKNESS Start Date of the Order: February 27, 2019 Dosage or Concentration (if applicable) - LPM: 2.00 Route of Administration (if applicable): Nasal Cannula Frequency of Use: Continuous Duration Home O2 Required: 30 Duration Units: Days Room Air Oxygen Saturation: 84 ER Prescribing Physician's Name: Derick Melendez NPI Numbers for Local ER MDs: Lissy [id number] Patient Instructions: Near Syncope (ED) DERICK MELENDEZ MD February 27, 2019 13:51
--- NOTE | 2019-02-27 13:57 | EKG ---
FACILITY: [facility] - [place], [place] PATIENT NAME: MONICA EUBANKS : [id number] MR: [id number] V: [id number] EXAM DATE: ORDERING PHYSICIAN: JARED MELENDEZ TECHNOLOGIST: Test Reason : Blood Pressure : / mmHG Vent. Rate : 104 BPM Atrial Rate : 082 BPM P-R Int : 000 ms QRS Dur : 138 ms QT Int : 436 ms P-R-T Axes : 000 080 -05 degrees QTc Int : 573 ms Atrial fibrillation Right bundle branch block T wave abnormality, consider lateral ischemia or digitalis effect Abnormal ECG When compared with ECG of 22-DEC-2018 16:55, Inverted T waves have replaced nonspecific T wave abnormality in Inferior leads QT has lengthened Confirmed by CARMITA RODGERS ([id number]) on 02/27/2019 7:02:21 PM Referred By: Confirmed By:CARMITA RODGERS
[2019-02-27] MEDS ORDERED: TETRACAIN/EPI/LIDO GEL 3ML SYR TP ONE (14:15)
[2019-02-27] MEDS ORDERED: NS(*) 0.9% 1000 ML BAG 1,000 ML IV ONE ×2 (14:50→18:20)
[2019-02-27 14:52] LABS: PLATELET COUNT, AUTOMATED 227 K/uL (150-450)
[2019-02-27] MEDS ORDERED: POTASSIUM CHL 20 MEQ TABCR PO ONE (15:20)
--- NOTE | 2019-02-27 15:35 | RADIOLOGY IMAGING REPORT ---
FACILITY: [facility] PATIENT NAME: Myles Ricardo : 1950 MR: [id number] V: [id number] EXAM DATE: ORDERING PHYSICIAN: JARED MELENDEZ TECHNOLOGIST: Location: [facility] Patient: Myles Ricardo : 1950 Visit/Account:[id number] Date of Sevice: 02/27/2019 2 VIEWS CHEST INDICATION: Wall. Rib pain. COMPARISON: None available FINDINGS: The lungs are clear. No effusion or pneumothorax is seen. Heart size and mediastinal contours are nor mal. Prominent central pulmonary arteries are seen bilaterally consistent with underlying pulmonary a rterial hypertension. A right intramedullary port catheter is in place with its tip overlying the exp ected location of the superior vena cava. Compression fractures involve the upper lumbar spine on the edge of the wymja-zu-taai. No displaced rib fractures seen. IMPRESSION: 1. No radiographic evidence of active disease. 2. Prominent central pulmonary arteries suggesting underlying pulmonary arterial hypertension. Report Dictated By: Ayan Medrano at 02/27/2019 3:26 PM Report E-Signed By: Ayan Medrano at 02/27/2019 3:31 PM WSN:[id number]
--- NOTE | 2019-02-27 15:56 | RADIOLOGY IMAGING REPORT ---
FACILITY: [facility] - [place] PATIENT NAME: Myles Ricardo : 1950 MR: [id number] V: [id number] EXAM DATE: ORDERING PHYSICIAN: AJRED MELENDEZ TECHNOLOGIST: Location: [facility] - [place] Patient: Myles Ricardo : 1950 Visit/Account:[id number] Date of Sevice: 02/27/2019 Study: CT scan of the brain without intravenous contrast. Indication: Fall Comparison study:None Technique: Multiple axial images were obtained through the brain without the use of intravenous contr ast. One of the following dose optimization techniques was utilized in the performance of this exam: Autom ated exposure control; adjustment of the mA and/or kV according to the patient's size; or use of an i terative reconstruction technique. Specific details can be referenced in the facility's radiology C T exam operational policy. The examination demonstrates no evidence of acute intracranial hemorrhage. There is no evidence of ex tra-axial collection or hydrocephalus. There is no abnormal density identified within the brain parenchyma. There is no evidence of disruption of the peripheral vaughan-white junction. The bony structures are unremarkable. IMPRESSION:Unremarkable CT scan of the brain without contrast. Report Dictated By: Mayco Henry at 02/27/2019 3:45 PM Report E-Signed By: Mayco Henry at 02/27/2019 3:51 PM WSN:[id number]
[2019-02-27] MEDS ORDERED: IOPAMIDOL 76% 150 ML INFUS BTL 150 ML ONE (16:08)
[2019-02-27] MEDS ORDERED: NS(*) 0.9% 50 ML BAG 50 ML ONE (16:08)
--- NOTE | 2019-02-27 17:18 | RADIOLOGY IMAGING REPORT ---
FACILITY: [facility] PATIENT NAME: Myles Ricardo : 1950 MR: [id number] V: [id number] EXAM DATE: ORDERING PHYSICIAN: JARED MELENDEZ TECHNOLOGIST: Location: [facility] Patient: Myles Ricardo : 1950 Visit/Account:[id number] Date of Sevice: 02/27/2019 EXAMINATION: CTA of the chest with IV contrast HISTORY: Syncope. TECHNIQUE: Pulmonary embolus protocol - Thin axial CT images of the chest were obtained with IV con trast during maximal pulmonary arterial opacification. Reconstruction of the source data includes mul tiplanar 2D coronal and sagittal reconstructed images, and 3D coronal and sagittal MIP images. Repres entative images have been stored on PACS. One of the following dose optimization techniques was utilized in the performance of this exam: Autom ated exposure control; adjustment of the mA and/or kV according to the patient's size; or use of an i terative reconstruction technique. Specific details can be referenced in the facility's radiology C T exam operational policy. Contrast: 75 mL of IV Isovue-370. COMPARISON: CT chest abdomen and pelvis with contrast 12/04/2018. Lumbar spine MRI 01/07/2019. FINDINGS: Pulmonary arteries: The pulmonary arteries are well opacified, without suspicious filling defect. Heart, aorta, and great vessels: Normal caliber thoracic aorta. Vascular calcifications including c oronary artery calcifications. Normal heart size. No pericardial effusion. Right IJ central venous port with tip near the cavoatrial junction. Lungs and pleura: Slight scarring or atelectasis at the left lung base. The lungs are otherwise ash ar. No new pulmonary nodule, mass, or consolidation. The central airways are patent. No pleural ef fusion or pneumothorax. Mediastinum and fred: Negative. Visualized upper abdomen: The known pancreatic head mass is partially visualized. Metallic biliary stent in place with stable scattered pneumobilia. No new findings in the visualized upper abdomen. Chest wall: Negative. Bones: New compression fracture of L1 with 40% loss of height. No retropulsion. There is slight headley perior endplate wedging of T12 which is also new with 10% loss of height. Partially visualized compr ession fracture of L2 was present on the prior lumbar spine MRI. No other new osseous findings along the thoracic spine. IMPRESSION: 1. No evidence of pulmonary embolism. 2. No other acute findings in the chest. The lungs are clear. 3. The known pancreatic head mass is partially visualized, with a metallic biliary stent in place. Scattered pneumobilia in the visualized liver appears stable. 4. New compression fracture of L1 with 40% loss of height. Additional slight superior endplate wedg ing of T12 also appears new with 10% loss of height. These changes were not present on the prior lum bar spine MRI. Report Dictated By: Nickolas Reid MD at 02/27/2019 4:53 PM Report E-Signed By: Nickolas Reid MD at 02/27/2019 5:14 PM WSN:[id number]
[2019-02-27] MEDS ORDERED: HEPARIN FLSH (PORT) 500 UN/5ML IVP ONE (17:35)
[2019-02-27 18:30] VITALS: BP 60/40
[2019-02-27] MEDS ORDERED: HEPARIN FLSH (PORT) 500 UN/5ML ONE (20:06)
--- NOTE | 2019-02-27 21:24 | Miscellaneous Provider Note ---
Miscellaneous Provider Note Note I was asked to see the patient for admission. He was having falls with attempting to ambulate and nearly had one in the ER. The patient thinks that it is related to chemotherapy, but the current problems are further out from chemotherapy than normal. Usually, the falls occur a few days afterwards. Now, he is about 8-9 days out. He denies LOC, cp, sob, palpitations, tunnel vision before/during/after the events. He stands up very slowly, but then will develop vertigo symptoms and then his legs given out. He was willing to be admitted to be in a safe environment tonight, so that he can make an 0800 Radiation Oncology appointment tomorrow. I told him that we likely cannot get him discharged by then because we don't start rounding until [id number], and also we would want to do some investigation of the falls and have him cleared by PT. He did not want to be admitted if he couldn't make the appointment tomorrow. He called his and she was, apparently, willing to pick him up. I informed the ER provider about the patients decision. Copies to: BENITO STOLL MD; NICOLE PATTERSON MD ; CARMITA RODGERS MD February 27, 2019 21:24
== END 2019-02-27 20:15 | disposition home or self-care (01) ==
LOC: ER 13:40 → UNDOADMIN 19:18 → MED 19:18 → ER 20:15
DX: R55 Syncope and collapse (principal)
CPT/HCPCS: 70450; 71046; 71275; 84484; 85025; 85379; 93005; 96360; 96361; 99284; J1642; J7030; J7050; Q9967; 82040; 82247; 82310; 82374; 82435; 82565; 82947; 84075; 84132; 84155; 84295; 84450; 84460; 84520

== ENCOUNTER 2019-03-18 16:52 | Inpatient (IN) | payer OTHER, MEDICARE ==
[~2019-03-18] VITALS: Ht 182.9 cm; Wt 89.8 kg
[~2019-03-18 16:52] MED LIST changes: -POTA10CA40 PO; -XELOD500PT GT
--- NOTE | 2019-03-18 17:06 | ER Report ---
History and Physical Time Seen By MD: 17:05 Hx. of Stated Complaint: PATIENT HAVING TROUBLE WITH HIS WORDS. PATIENT HAS PANCREATIC CANCER AND WAS IN THE CANCER CENTER AND STARTING HAVING TROUBLE HPI/ROS CHIEF COMPLAINT: Inability to coherently speak HISTORY OF PRESENT ILLNESS: 68 year old male presents to ED after being referred by the cancer center with concerns about expressive aphasia. He starting presenting with expressive aphasia as he was leaving the cancer center. Patient is accompanied by his and daughter. Patient reports that he feels "normal", no pain, and does not feel like he has to be here. presents with concerns about the expressive aphasia and the jumbled words he is using to speak. C amadeotly denies headache, dizziness, nausea, vomiting, fever, chest pain, difficulty breathing. Patient does report he fell at work today on his right hip. He reports tenderness, but states it feels fine. Unable to get further information from him regarding his hip due to the expressive aphasia. REVIEW OF SYSTEMS: Respiratory: No cough, no dyspnea. Cardiovascular: No chest pain, no palpitations. Gastrointestinal: No vomiting, no abdominal pain. Musculoskeletal: No back pain. Right hip pain as noted above. Allergies: Coded Allergies: doxycycline (Verified Allergy, Mild, states causes uncontrolled bleeding, 10/11/18) Penicillins (Verified Allergy, Unknown, 10/11/18) EHR CONVERSION Home Meds Active Scripts Atorvastatin Calcium (ATORVASTATIN CALCIUM) 40 Mg Tablet, 1 TAB PO QDAY, #90 TAB 4 Refills Prov:BENITO REAL MD 02/26/19 Metoprolol Succinate (METOPROLOL SUCCINATE) 100 Mg Tab.er.24h, 0.5 TAB PO QDAY, #1 TAB Prov:BENITO REAL MD 02/12/19 Cyclobenzaprine Hcl (CYCLOBENZAPRINE HCL) 5 Mg Tablet, 10 MG PO TID PRN for Pain for 14 Days, #50 TAB 0 Refills take 1 tablet po TID PRN muscle spasm Prov:DOM VILCHIS APRN, FNP 01/28/19 Apixaban (ELIQUIS) 5 Mg Tablet, 5 MG PO BID, #180 TAB 3 Refills Prov:BENITO REAL MD 12/28/18 Meloxicam (MELOXICAM) 15 Mg Tablet, 15 MG PO QDAY, #90 TAB 3 Refills Prov:BENITO REAL MD 11/30/18 Tramadol Hcl (TRAMADOL HCL) 50 Mg Tablet, 50 MG PO Q4-6H, #30 TAB Prov:BENITO REAL MD 11/28/18 Insulin Aspart 100 Un/Ml Pen (NOVOLOG FLEXPEN) 100 Unit/1 Ml Insuln.pen, 10-45 UNIT SQ TID, #6 BOX 3 Refills Sliding Scale: <100=10 units <200=25 units >300=35 units >400=40 units >500=45 units Prov:BENITO REAL MD 11/28/18 Omeprazole (OMEPRAZOLE) 20 Mg Capsule.dr, 1 CAP PO QDAY, #30 CAP 5 Refills Prov:BENITO REAL MD 11/09/18 Insulin Glargine,Hum.rec.anlog (Toujeo Solostar) 300 Unit/1 Ml Insuln.pen, 13 UNITS SUBQ QHS, #3 BOX 3 Refills Increase by 2 units every 2 days to keep fasting blood sugars between 80-120 Prov:BENITO REAL MD 10/03/18 Fluoxetine Hcl (PROZAC) 40 Mg Capsule, 40 MG PO QDAY, #90 CAPSULE 3 Refills Prov:BENITO REAL MD 05/04/18 Allopurinol (ZYLOPRIM) 300 Mg Tablet, 1 TAB PO DAILY, #90 TAB 3 Refills Please establish care with Dr. Real on 03/09/18 for further refills. Prov:BENITO REAL MD 03/09/18 Reported Medications Cholecalciferol (Vitamin D3) (VITAMIN D) 5,000 Unit Tablet, 5000 UNIT PO DAILY 03/18/19 Potassium Gluconate (Potassium) 600 Mg (99 Mg) Tablet, 600 MG PO BID 03/04/19 Magnesium Oxide (MAGOX 400) 400 Mg Tablet, 400 MG PO DAILY 01/07/19 Acetaminophen (TYLENOL) 325 Mg Tablet, 325 MG PO BID, TAB 01/07/19 Metolazone (METOLAZONE) 2.5 Mg Tablet, 2.5 MG PO DAILY 01/03/19 Furosemide (FUROSEMIDE) 20 Mg Tablet, 1 TAB PO DAILY, TAB 01/03/19 Dicyclomine Hcl (DICYCLOMINE HCL) 20 Mg Tablet, 20 MG PO DAILY PRN for PRN 11/28/18 Loperamide Hcl (LOPERAMIDE) 2 Mg Capsule, 2 MG PO PRN for DIARRHEA, CAPSULE Take 2 capsules at the first sign of diarrhea, then 1 capsule Q2 hours until diarrhea free for 12 hrs 11/09/18 Discontinued Reported Medications Cholecalciferol (Vitamin D3) (VITAMIN D) 1,000 Unit Tablet, 1000 UNIT PO DAILY 08/06/18 Past Medical/Surgical History Past medical hx of possible TIA 12/22/2018, A-fib, hypercholesterolemia, pneumonia, diabetes, pancreatic cancer, liver disease, MSK fractures, anxiety, depression. Hx of left ankle surgery and left hip surgery, tonsillectomy Reviewed Nurses Notes: Yes Smoking Status: Never Smoker Exposure to Second Hand Smoke?: Yes (both parents ) Hx Substance Use Disorder: No Hx Alcohol Use: No Constitutional Vital Sign - Last 24 Hours 03/18/19 03/18/19 03/18/19 03/18/19 16:59 18:55 19:00 19:15 Temp 98.5 Pulse 105 84 79 Resp 16 B/P (MAP) 110/63 108/81 (90) Pulse Ox 92 84 86 O2 Delivery Room Air 03/18/19 03/18/19 03/18/19 03/18/19 19:30 19:45 19:50 20:20 Pulse 89 90 ? Pulse Ox 90 91 03/18/19 03/18/19 03/18/19 03/18/19 20:50 20:54 21:00 21:20 Pulse 106 97 B/P (MAP) 110/73 (85) 107/74 (85) Pulse Ox 98 90 03/18/19 03/18/19 21:30 21:30 Pulse 94 B/P (MAP) 110/81 (91) 110/81 (91) Pulse Ox 96 Physical Exam General Appearance: The patient is alert, has no immediate need for airway protection and no current signs of toxicity. Eyes: Pupils equal and round no injection. Respiratory: Chest is non tender, lungs are clear to auscultation. Cardiac: regular rate and rhythm Gastrointestinal: Abdomen is soft and non tender, no masses, bowel sounds normal. Musculoskeletal: Neck: Neck is supple and non tender. Tenderness to right hip - reports he fell at work earlier today. Denies wanting further evaluation of the hip at this time. Neuro: Expressive aphasia noted. While talking with patient, he exhibits word salad and tangentiality. Negative pronator drift. Able to perform nose to finger. Stereotype Caster strength in upper extremities weaker in left hand versus right. Extremities have full range of motion and are non tender. Skin: No rashes or lesions. DIFFERENTIAL DIAGNOSIS: After history and physical exam differential diagnosis was considered for hypoglycemia, medication side effects, tumor, stroke, spread of cancer. Medical Decision Making Data Points Result Diagram: 03/18/19192903/18/191929 Laboratory Hematology Test 03/18/19 19:30 03/18/19 21:26 Red Blood Count 3.38 M/uL (4.00-5.60) Mean Corpuscular Volume 98.9 fL (80.0-96.0) Mean Corpuscular Hemoglobin 33.1 pg (26.0-33.0) Mean Corpuscular Hemoglobin Concent 33.5 g/dL (32.0-36.0) Red Cell Distribution Width 16.8 % (11.5-14.5) Mean Platelet Volume 7.9 fL (7.2-11.1) Neutrophils (%) (Auto) 68.7 % (39.4-72.5) Lymphocytes (%) (Auto) 14.2 % (17.6-49.6) Monocytes (%) (Auto) 15.0 % (4.1-12.4) Eosinophils (%) (Auto) 0.9 % (0.4-6.7) Basophils (%) (Auto) 1.2 % (0.3-1.4) Nucleated RBC Relative Count (auto) 0.0 /100WBC Neutrophils # (Auto) 4.7 K/uL (2.0-7.4) Lymphocytes # (Auto) 1.0 K/uL (1.3-3.6) Monocytes # (Auto) 1.0 K/uL (0.3-1.0) Eosinophils # (Auto) 0.1 K/uL (0.0-0.5) Basophils # (Auto) 0.1 K/uL (0.0-0.1) Nucleated RBC Absolute Count (auto) 0.00 K/uL Sodium Level 134 mmol/L (137-145) Potassium Level 3.1 mmol/L (3.5-5.0) Chloride Level 99 mmol/L (98-107) Carbon Dioxide Level 22 mmol/L (22-30) Blood Urea Nitrogen 20 mg/dl (9-21) Creatinine 1.30 mg/dl (0.66-1.25) Glomerular Filtration Rate Calc 55.2 Random Glucose 134 mg/dl (75-110) Calcium Level 9.1 mg/dl (8.4-10.2) Total Bilirubin 0.4 mg/dl (0.2-1.3) Aspartate Amino Transf (AST/SGOT) 29 U/L (0-35) Alanine Aminotransferase (ALT/SGPT) 29 U/L (0-56) Alkaline Phosphatase 129 U/L (0-126) Troponin I < 0.012 ng/ml Total Protein 6.3 g/dl (6.3-8.2) Albumin 3.2 g/dl (3.5-5.0) Whole Blood Glucose 128 mg/DL (75-110) Chemistry Test 03/18/19 19:30 03/18/19 21:26 White Blood Count 6.8 k/uL (4.5-11.0) Red Blood Count 3.38 M/uL (4.00-5.60) Hemoglobin 11.2 g/dL (14.0-18.0) Hematocrit 33.5 % (42.0-52.0) Mean Corpuscular Volume 98.9 fL (80.0-96.0) Mean Corpuscular Hemoglobin 33.1 pg (26.0-33.0) Mean Corpuscular Hemoglobin Concent 33.5 g/dL (32.0-36.0) Red Cell Distribution Width 16.8 % (11.5-14.5) Platelet Count 182 K/uL (150-450) Mean Platelet Volume 7.9 fL (7.2-11.1) Neutrophils (%) (Auto) 68.7 % (39.4-72.5) Lymphocytes (%) (Auto) 14.2 % (17.6-49.6) Monocytes (%) (Auto) 15.0 % (4.1-12.4) Eosinophils (%) (Auto) 0.9 % (0.4-6.7) Basophils (%) (Auto) 1.2 % (0.3-1.4) Nucleated RBC Relative Count (auto) 0.0 /100WBC Neutrophils # (Auto) 4.7 K/uL (2.0-7.4) Lymphocytes # (Auto) 1.0 K/uL (1.3-3.6) Monocytes # (Auto) 1.0 K/uL (0.3-1.0) Eosinophils # (Auto) 0.1 K/uL (0.0-0.5) Basophils # (Auto) 0.1 K/uL (0.0-0.1) Nucleated RBC Absolute Count (auto) 0.00 K/uL Glomerular Filtration Rate Calc 55.2 Calcium Level 9.1 mg/dl (8.4-10.2) Total Bilirubin 0.4 mg/dl (0.2-1.3) Aspartate Amino Transf (AST/SGOT) 29 U/L (0-35) Alanine Aminotransferase (ALT/SGPT) 29 U/L (0-56) Alkaline Phosphatase 129 U/L (0-126) Troponin I < 0.012 ng/ml Total Protein 6.3 g/dl (6.3-8.2) Albumin 3.2 g/dl (3.5-5.0) Whole Blood Glucose 128 mg/DL (75-110) ED Course/Re-evaluation ED Course Upon arrival to the ED, patient admitted to an exam room, hx and physical obtained, differentials considered. Patient presents to ED after being referred by the cancer center with concerns about expressive aphasia. He started presenting with expressive aphasia as he was leaving the cancer center. Patient is accompanied by his and daughter. Patient reports that he feels "normal", no pain, and does not feel like he has to be here. presents with concerns about the expressive aphasia. Currently denies headache, dizziness, nausea, vomiting, fever, chest pain, difficulty breathing, abdominal pain. Patient does report he fell at work today on his right hip. He reports tenderness, but states it feels fine. Unable to get further information from him regarding his hip due to the expressive aphasia. Lungs clear, heart rate regular, no abdominal pain with palpation. PERRLA, negative pronator drift. Able to perform nose to finger. Stereotype Caster strength in upper extremities weaker in left hand versus right. While talking with patient, he exhibited word salad and tangentiality. Patient initially declined lab work and imaging. However, blood sugar was checked and was 56. Patient given apple juice and blood sugar rechecked. It came up 76. After apple juice was consumed, he started to have less expressive aphasia. After approximately 20 minutes, his expressive aphasia returned. At this time, it was decided to administer D5NS he received 94.1ccs. Since we accessed his port for the D5NS, labs were drawn. Patient then reported he had a headache. At that time we found out the headache had been present after the expressive aphas ia started. Tramadol 50mg given. Head CT was then ordered. Patient did finally agree to CT scan. While in CT he vomited. 12.5mg promethazine administered. Once back from CT, morphine 4mg given for increased headache pain. Vomiting did not subside, so Zofran 4mg given. Discussed with patient and family about admitting patient for further evaluation. Family and patient did agree to this. Hospitalist was then consulted for admission. Dr. Archuleta accepted patient for admission. Decision to Disposition Date: Mar 18, 2019 Decision to Disposition Time: 21:45 Depart Departure Latest Vital Signs Vital Signs Date Time Temp Pulse Resp B/P (MAP) Pulse Ox O2 Delivery O2 Flow Rate FiO2 03/18/19 21:30 94 110/81 (91) 96 03/18/19 16:59 98.5 16 Room Air Impression: Primary Impression: Expressive aphasia Condition: Condition Unchanged Disposition: Admitted from ER Referrals: BENITO REAL MD (PCP) BAG SHAKER/PA consult with MD: Verbally MD Consult Note: ELLIOTT Taylor Mar 18, 2019 17:06
[2019-03-18] MEDS ORDERED: D5NS(*) 1000 ML BAG 1,000 ML IV ONE (18:30)
[2019-03-18] MEDS ORDERED: TETRACAIN/EPI/LIDO GEL 3ML SYR TP ONE (18:35)
[2019-03-18 19:40] LABS: PLATELET COUNT, AUTOMATED 182 K/uL (150-450)
[2019-03-18] MEDS ORDERED: traMADol 50 MG TAB PO ONE (20:20)
[2019-03-18] MEDS ORDERED: PROMETHAZINE 25 MG/ML 1 ML AMP IVP ONE (20:45)
--- NOTE | 2019-03-18 21:11 | RADIOLOGY IMAGING REPORT ---
FACILITY: [facility] [place]IENT NAME: Myles Ricardo : 1950 MR: [id number] V: [id number] EXAM DATE: ORDERING PHYSICIAN: ELLIOTT PRINGLE TECHNOLOGIST: Location: [facility] - [place] Patient: Myles Ricardo : 1950 Visit/Account:[id number] Date of Sevice: 03/18/2019 EXAMINATION: CT HEAD WITHOUT CONTRAST COMPARISON: 02/27/2019 and earlier. HISTORY: expressive aphasia PROCEDURE: Noncontrast CT from the vertex through the skull base. One of the following dose optimizat ion techniques was utilized in the performance of this exam: Automated exposure control; adjustment o f the mA and/or kV according to the patient's size; or use of an iterative reconstruction technique. Specific details can be referenced in the facility's radiology CT exam operational policy. FINDINGS: Brain volume: Mild global volume loss. Hemorrhage/extra-axial fluid: None. Mass effect/midline shift/edema: None. Ischemia: Delgado-white differentiation is preserved. Ventricles and basal cisterns: Within normal limits. Posterior fossa: Negative. Vessels: Atherosclerosis. Calvarium, skull base, and scalp: Negative. Visualized sinuses and orbits: Within normal limits. IMPRESSION: 1. No intracranial hemorrhage or mass effect. 2. No CT findings of acute ischemia. Report Dictated By: Ash Ny MD at 03/18/2019 9:01 PM Report E-Signed By: Ash Ny MD at 03/18/2019 9:07 PM [id number]:[email or web address]
[2019-03-18] MEDS ORDERED: MORPHINE 4 MG/ML SDV IVP ONE (21:40)
[2019-03-18] MEDS ORDERED: ONDANSETRON 4 MG/2 ML VIAL IVP ONE (21:50)
[2019-03-18 22:38] VITALS: BP 132/75
[2019-03-18] MEDS ORDERED: KCL 2 MEQ/ML 20 MEQ/10 ML VIAL 20 MEQ in D5 1/2 NS(*) 1000 ML BAG 1,000 ML IV PRN (23:15)
[2019-03-18] MEDS ORDERED: FLUSH 10 ML SYR IVP PRN (23:15)
--- NOTE | 2019-03-18 23:44 | History & Physical ---
History of Present Illness Chief Complaint Trouble speaking History of Present Illness 68yo male with PMHx significant for pancreatic cancer, HTN, a-fib, type 2 DM. He was receiving IV fluids in the [facility] earlier today. He was noted to have difficulty speaking - episodically speaking nonsense interspersed with normal fluent speaking. He apparently did complain of some mild headache at times, but currently denies any problems. He does admit to feeling tired/fatigued. No focal weakness/clumsiness has been observed and he denies any at this time.He denies any fevers/chills/nausea/emesis/urinary complaints. He does admit to decreased appetite. He had a similar episode in December of this year. Work-up at that time was unremarkable and his symptoms resolved. He was evaluated in the ER. His CT scan was unremarkable. His glucose was 56 when he was first in the ER. He was given dextrose and it dinora to 70s and eventually to 120-130s. It was felt by the ER staff that his aphasia seemed to improve with the rise of his glucose. He has, however, had the intermittent nonsensical speech. He was recommended for admission. History Problems: (1) Pancreatic cancer Status: Chronic (2) Hypertension Status: Chronic (3) Atrial fibrillation Status: Chronic (4) CASANDRA on CPAP Status: Chronic (5) Hyperlipidemia Status: Chronic (6) Depression with anxiety Status: Chronic (7) Chronic anticoagulation Status: Chronic (8) Venous insufficiency Status: Chronic (9) History of biliary stent insertion Status: Chronic (10) Insulin-requiring or dependent type II diabetes mellitus Status: Chronic Home Meds Active Scripts Atorvastatin Calcium (ATORVASTATIN CALCIUM) 40 Mg Tablet, 1 TAB PO QDAY, #90 TAB 4 Refills Prov:JESSIE REAL MD 02/26/19 Metoprolol Succinate (METOPROLOL SUCCINATE) 100 Mg Tab.er.24h, 0.5 TAB PO QDAY, #1 TAB Prov:JESSIE REAL MD 02/12/19 Cyclobenzaprine Hcl (CYCLOBENZAPRINE HCL) 5 Mg Tablet, 10 MG PO TID PRN for Pain for 14 Days, #50 TAB 0 Refills take 1 tablet po TID PRN muscle spasm Prov:DOM VILCHIS APRN,SUMIT 01/28/19 Apixaban (ELIQUIS) 5 Mg Tablet, 5 MG PO BID, #180 TAB 3 Refills Prov:JESSIE REAL MD 12/28/18 Meloxicam (MELOXICAM) 15 Mg Tablet, 15 MG PO QDAY, #90 TAB 3 Refills Prov:JESSIE REAL MD 11/30/18 Tramadol Hcl (TRAMADOL HCL) 50 Mg Tablet, 50 MG PO Q4-6H, #30 TAB Prov:JESSIE REAL MD 11/28/18 Insulin Aspart 100 Un/Ml Pen (NOVOLOG FLEXPEN) 100 Unit/1 Ml Insuln.pen, 10-45 UNIT SQ TID, #6 BOX 3 Refills Sliding Scale: <100=10 units <200=25 units >300=35 units >400=40 units >500=45 units Prov:JESSIE REAL MD 11/28/18 Omeprazole (OMEPRAZOLE) 20 Mg Capsule.dr, 1 CAP PO QDAY, #30 CAP 5 Refills Prov:JESSIE REAL MD 11/09/18 Insulin Glargine,Hum.rec.anlog (Toujeo Solostar) 300 Unit/1 Ml Insuln.pen, 13 UNITS SUBQ QHS, #3 BOX 3 Refills Increase by 2 units every 2 days to keep fasting blood sugars between 80-120 Prov:JESSIE REAL MD 10/03/18 Fluoxetine Hcl (PROZAC) 40 Mg Capsule, 40 MG PO QDAY, #90 CAPSULE 3 Refills Prov:JESSIE REAL MD 05/04/18 Allopurinol (ZYLOPRIM) 300 Mg Tablet, 1 TAB PO DAILY, #90 TAB 3 Refills Please establish care with Dr. Real on 03/09/18 for further refills. Prov:JESSIE REAL MD 03/09/18 Reported Medications Cholecalciferol (Vitamin D3) (VITAMIN D) 5,000 Unit Tablet, 5000 UNIT PO DAILY 03/18/19 Potassium Gluconate (Potassium) 600 Mg (99 Mg) Tablet, 600 MG PO BID 03/04/19 Magnesium Oxide (MAGOX 400) 400 Mg Tablet, 400 MG PO DAILY 01/07/19 Acetaminophen (TYLENOL) 325 Mg Tablet, 325 MG PO BID, TAB 01/07/19 Metolazone (METOLAZONE) 2.5 Mg Tablet, 2.5 MG PO DAILY 01/03/19 Furosemide (FUROSEMIDE) 20 Mg Tablet, 1 TAB PO DAILY, TAB 01/03/19 Dicyclomine Hcl (DICYCLOMINE HCL) 20 Mg Tablet, 20 MG PO DAILY PRN for PRN 11/28/18 Loperamide Hcl (LOPERAMIDE) 2 Mg Capsule, 2 MG PO PRN for DIARRHEA, CAPSULE Take 2 capsules at the first sign of diarrhea, then 1 capsule Q2 hours until diarrhea free for 12 hrs 11/09/18 Discontinued Reported Medications Cholecalciferol (Vitamin D3) (VITAMIN D) 1,000 Unit Tablet, 1000 UNIT PO DAILY 08/06/18 Allergies: Coded Allergies: doxycycline (Verified Allergy, Mild, states causes uncontrolled bleeding, 10/11/18) Penicillins (Verified Allergy, Unknown, 10/11/18) EHR CONVERSION Patient History: FH: diabetes mellitus FATHER, , Age:78 BROTHER OR SISTER FH: heart disease FATHER, , Age:78 FH: pancreatic cancer Aunt FH: prostate cancer FATHER, , Age:78 FH: stroke FATHER, , Age:78 MOTHER, , Age:88 BROTHER OR SISTER Smoking Status: Never Smoker Exposure to Second Hand Smoke?: Yes (both parents ) Caffeine Intake: Soda Hx Alcohol Use: No Hx Substance Use Disorder: No Social Drug Use: Never Review of Systems Constitutional: No Fever, No Chills Neurological: Weakness Eyes: No Vision Change Cardiovascular: No Chest Pain, No Palpitations Respiratory: No Shortness of Breath Gastrointestinal: No Nausea, No Vomiting Genitourinary: No Dysuria Exam Vital Signs Vital Signs Date Time Temp Pulse Resp B/P (MAP) Pulse Ox O2 Delivery O2 Flow Rate FiO2 03/18/19 22:51 92 Nasal Cannula 2.0 03/18/19 22:38 98.0 95 12 132/75 (94) General Appearance: Alert, Awake, Other (He does prefer to rest and keep his eyes closed) Neuro: Other (No focal motor deficits/DTRs 2/4 bilateral in patellar and Achilles) Eyes: PERRLA (EOMI) ENT: Oropharynx Clear, Other (tongue protrudes in midline) Neck: No Masses Cardiovascular: Other (Irregular with systolic murmur) Respiratory: Clear to Auscultation Chest: No Tenderness, Other (Chemo port right upper chest/no redness or tenderness) GI: Abd Soft and Non-Tender (BS present) : No CVA Tenderness Lymph: No Adenopathy Extremities: Warm, Perfused Integumentary: Generalized Fragile Skin Psych: Other (He is oriented to person/place/time) Medical Decision Making Data Points Result Diagram: 03/18/190 03/18/191929 Item Value Date Time Albumin 3.2 g/dl L 03/18/191929 Total Protein 6.3 g/dl 03/18/191929 Troponin I < 0.012 ng/ml 03/18/191929 Alkaline Phosphatase 129 U/L H 03/18/191929 Alanine Aminotransferase (ALT/SGPT) 29 U/L 03/18/191929 Aspartate Amino Transf (AST/SGOT) 29 U/L 03/18/191929 Total Bilirubin 0.4 mg/dl 03/18/191929 Calcium Level 9.1 mg/dl 03/18/191929 Whole Blood Glucose 128 mg/DL H 03/18/192125 Whole Blood Glucose 133 mg/DL H 03/18/191958 Whole Blood Glucose 76 mg/DL 03/18/19 1812 Whole Blood Glucose 69 mg/DL L 03/18/19 1749 Whole Blood Glucose 56 mg/DL L 03/18/19 1710 Urine Color Yellow 03/18/19 1624 Urine Mucus None /HPF 03/18/19 1624 Urine Bacteria Negative /HPF 03/18/19 1624 Urine Squamous Epithelial Cells Few /LPF 03/18/19 1624 Urine WBC <1 /HPF 03/18/19 1624 Urine RBC <1 /HPF 03/18/19 1624 Urine Urobilinogen Negative mg/dL 03/18/19 1624 Urine Leukocyte Esterase Negative 03/18/19 1624 Urine Bilirubin Negative 03/18/19 1624 Urine Nitrite Negative 03/18/19 1624 Urine Blood Negative 03/18/19 1624 Urine Ketones Negative mg/dL 03/18/19 1624 Urine Glucose (UA) Negative mg/dL 03/18/19 1624 Urine Protein Negative mg/dL 03/18/19 1624 Urine Specific [place] 1.011 03/18/19 1624 Urine pH 9.0 pH 03/18/19 1624 Urine Clarity Clear 03/18/19 1624 EKG / Imaging Imaging PATIENT NAME: Myles Ricardo : 1950 MR: [id number] V: [id number] EXAM DATE: ORDERING PHYSICIAN: ELLIOTT PRINGLE TECHNOLOGIST: Location: [facility] [place] Patient: Myles Ricardo : 1950 Visit/Account:[id number] Date of Sevice: 03/18/2019 EXAMINATION: CT HEAD WITHOUT CONTRAST COMPARISON: 02/27/2019 and earlier. HISTORY: expressive aphasia PROCEDURE: Noncontrast CT from the vertex through the skull base. One of the following dose optimization techniques was utilized in the performance of this exam: Automated exposure control; adjustment of the mA and/or kV according to the patient's size; or use of an iterative reconstruction technique. Specific details can be referenced in the facility's radiology CT exam operational policy. FINDINGS: Brain volume: Mild global volume loss. Hemorrhage/extra-axial fluid: None. Mass effect/midline shift/edema: None. Ischemia: Delgado-white differentiation is preserved. Ventricles and basal cisterns: Within normal limits. Posterior fossa: Negative. Vessels: Atherosclerosis. Calvarium, skull base, and scalp: Negative. Visualized sinuses and orbits: Within normal limits. IMPRESSION: 1. No intracranial hemorrhage or mass effect. 2. No CT findings of acute ischemia. Report Dictated By: Ash Ny MD at 03/18/2019 9:01 PM Report E-Signed By: Ash Ny MD at 03/18/2019 9:07 PM [id number] Assessment and Plan Problems: (1) Expressive aphasia Status: Acute Assessment & Plan: He may have had some improvements since admission to the ER, but has persistent aphasia intermittently. He may have had ischemic event and now more doubtful it is related to the hypoglycemia as it is persistent even with his normal-elevated glucose. His atrial fibrillation certainly increases his risk, especially if he has missed any doses of his Eliquis. Will place on telemetry, check carotid US and MRI of his brain. Will also continue Eliquis, start aspirin. Will have PT/OT/ST see. (2) Atrial fibrillation *Optional Permanent Comment*: Chronic asymptomatic. [id number] score of 2 Last Edited By: Jessie Real MD on May 14, 2018 11:01 Status: Chronic Assessment & Plan: Will continue his metoprolol, Eliquis, place on monitor. See above. (3) Insulin-requiring or dependent type II diabetes mellitus Status: Chronic Assessment & Plan: Will hold his insulin therapy for now. Will continue IV dextrose. Monitor glucoses. (4) Pancreatic cancer Status: Chronic Assessment & Plan: He has been receiving chemotherapy through [facility] in hopes that his initially unresectable cancer might become resectable. (5) Hypertension Status: Chronic Assessment & Plan: Will continue his metoprolol. Monitor BPs. Will be holding his diuretics. (6) Venous insufficiency Status: Chronic Assessment & Plan: He is on diuretics chronically. These will be held for now. Monitor. (7) Hypokalemia Status: Acute Assessment & Plan: Due to diuretic use. Will replace with IV supplementation. Watch labs. Copies to: JESSIE REAL MD; NICOLE PATTERSON MD ; Venous Thromboembolism Antithrombotics Is Pt On Any Antithrombotics?: Yes Exam Sepsis Risk: No Definite Risk VIDAL MAE MD Mar 18, 2019 23:44
[2019-03-18] MEDS ORDERED: KCL/D1/2NS 20 MEQ 1000 ML 1,000 ML IV ONE (23:52)
[2019-03-19] MEDS ORDERED: METOPROLOL TART 5 MG/5 ML VIAL IVP ONE ×2 (00:25)
--- NOTE | 2019-03-19 02:07 | EKG ---
[place] [facility] [place] NAME[place] MONICA EUBANKS : [id number] MR: [id number] V: [id number] EXAM DATE: ORDERING PHYSICIAN: VIDAL MAE TECHNOLOGIST: ANALI [place] Reason : CARDIAC Blood Pressure : / mmHG Vent. Rate : 102 BPM Atrial Rate : 113 BPM P-R Int : 000 ms QRS Dur : 156 ms QT Int : 394 ms P-R-T Axes : 000 103 -61 degrees QTc Int : 513 ms Atrial fibrillation with rapid ventricular response Premature ventricular complexes Nonspecific interventricular conduction delay Rightward axis Abnormal ECG Confirmed by VIDAL MAE ([id number]) on 03/19/2019 5:46:50 AM Referred By: Confirmed By:VIDAL MAE
[2019-03-19 04:05] VITALS: BP 101/48
[2019-03-19 06:15] LABS: PLATELET COUNT, AUTOMATED 159 K/uL (150-450)
[2019-03-19 06:18] LABS: LDL CHOLESTEROL 43 mg/dl
[2019-03-19 06:58] VITALS: BP 78/54
[2019-03-19 07:06] VITALS: BP 82/60
[2019-03-19] MEDS ORDERED: NS(*) 0.9% 250 ML BAG 250 ML IV ONE (07:20)
[2019-03-19] MEDS ORDERED: MAGNESIUM OXIDE 400 MG TAB PO SCH (09:00)
[2019-03-19] MEDS ORDERED: ASPIRIN 325 MG TAB PO SCH (09:00)
[2019-03-19] MEDS ORDERED: APIXABAN 2.5 MG TABLET PO SCH (09:00)
[2019-03-19] MEDS ORDERED: METOPROLOL SUCC XL 50 MG TABCR 50 MG TAB.ER.24H PO SCH (09:00)
[2019-03-19] MEDS ORDERED: INSULIN HUM LISPRO 100 UN/ML 3 ML VIAL SUBQ PRN (09:45)
--- NOTE | 2019-03-19 09:45 | Hospitalist Progress Note ---
Subjective Progress Notes Subjective This patient was admitted for aphasia. He had no acute events overnight. Patient Complains of: Cardiovascular: No: Chest Pain Respiratory: No: Shortness of Breath Physical Exam Vital Signs Date Time Temp Pulse Resp B/P (MAP) Pulse Ox O2 Delivery O2 Flow Rate FiO2 03/19/19 08:04 81 03/19/19 07:45 Oxy Mask 1.0 03/19/19 07:06 82/60 (67) 03/19/19 06:58 98.9 92 16 Intake and Output 03/19/19 07:00 Intake Total 93 ml Balance 93 ml IV Total 93 ml Neuro: No Gross deficits Cardiovascular: Regular Rate and Rhythm Respiratory: Clear to Auscultation Result Diagram: 03/19/1952403/19/19524 Assessment and Plan Problems: (1) Expressive aphasia Status: Acute Assessment & Plan: He did present with intermittent aphasia. A CT scan of the head was unremarkable. He is currently pending and MRI, carotid ultrasound, and speech evaluation. (2) Atrial fibrillation *Optional Permanent Comment*: Chronic asymptomatic. [id number] score of 2 Last Edited By: Jessie Real MD on May 14, 2018 11:01 Status: Chronic Assessment & Plan: He is on chronic treatment with Eliquis and metoprolol. (3) Insulin-requiring or dependent type II diabetes mellitus Status: Chronic Assessment & Plan: His sugar was slightly low on admission. His Lantus has been on hold and he has been receiving IV dextrose. We stopped the dextrose and placed him on sliding scale level #1 today. (4) Pancreatic cancer Status: Chronic Assessment & Plan: He has been receiving chemotherapy through [facility] in hopes that his initially unresectable cancer might become resectable. (5) Hypertension Status: Chronic Assessment & Plan: Will continue his metoprolol. Monitor BPs. Will be holding his diuretics. (6) Venous insufficiency Status: Chronic Assessment & Plan: He is on diuretics chronically. These will be held for now. Monitor. (7) Hypokalemia Status: Acute Assessment & Plan: Resolved with supplementation. Exam Sepsis Risk: No Definite Risk AMILCAR HECTOR DO Mar 19, 2019 09:45
[2019-03-19] MEDS ORDERED: KCL/D1/2NS 20 MEQ 1000 ML 1,000 ML IV PRN (10:15)
[2019-03-19] MEDS ORDERED: D5 1/2 NS(*) 1000 ML BAG 1,000 ML IV PRN (10:15)
[2019-03-19 10:25] VITALS: BP 105/69
--- NOTE | 2019-03-19 11:15 | NUR ---
Physical Therapy Impression PT eval complete. Pt as baseline functional mobility and is safe for DC when medically appropriate. Physical Therapy Goals Patient's Goals
[2019-03-19] MEDS ORDERED: METO50TA19 PO (11:57)
--- NOTE | 2019-03-19 12:04 | NUR ---
Occupational Therapy Impression No aphasic speech noted throughout evaluation. Independent bed mobility in/out. SBA ambulation in hallway. Occasional path deviation, no loss of balance. Pt reports to be at baseline for functional mobility. Independent toileting. Pt reports no concerns for discharge home and declines further needs at this time. No further skilled OT services indicated at this time. Occupational Therapy Goals Patient's Goal
[2019-03-19] MEDS ORDERED: POTA10CA40 PO (12:07)
--- NOTE | 2019-03-19 12:07 | Medical Nutrition Therapy ---
Nutrition Anthropometrics Height (Inches): 72.00 Height (Calculated Centimeters: 182.014939 Weight (Pounds): 198 Weight (Calculated Kilograms): 89.981 BMI: 26.9 Hx Weight Loss: Yes (110kg 09/29/18) Darryl Nutrition Score: Adequate Darryl Nutrition Risk Score: 19 Dietary Referral Nutrition Risk Factors: Unplanned Loss >10lbs Nutrition Risk Comment: Physical Findings Physical Appearance: Overweight BMI 25-29 Skin Appearance Skin Appearance: Edema Edema Location Modifier: Left Edema Location: Foot Type of Edema: Degree of Edema: 1+ Gastrointestinal Symptoms GI Symtoms: Tube Present: Bowel Sounds: Recent Bowel Pattern: Stool Characteristics: Nutritional Diagnosis Nutritional Risk Acuity 2: Head/Neck/GI Cancer (on chemo tx) Nutritional Risk Acuity 3: Weight Loss (110 kg 09/29/18) Past Medical History: pancreatic CA, T2DM Nutritional Acuity: 2-Moderate Nutrition Diagnosis: Increased Nutrient Needs Nutrition Etiology: Physiological Causes Nutrition Problem/Etiology/Sym: R/t dx pancreatic Ca AEB alb 2.6 and wt loss Adjusted Energy Requirement Re: 2450 (MSJ X1.1 SF) Protein Requirement: 99 (1.1gm/kg) Fluid Requirement: 2700 (1ml/kg) Diet Type: NPO (Nothing by Mouth) Nutrition Intervention: Incr diet as tolerated Nutrition Monitoring & Eval Nutrition Goals: Eat 75-100% Meal RD Patient Assessment Time: [address] Assessment Type: RD Assessment Patient Nutrition Acuity: 2-Moderate Follow Up Date: Mar 22, 2019 Nutritional Comment: 03/19 Pt admitted for expressive aphagia. Pt is currently NPO and pending SPL eval. Pt has dx pancreatic CA and is currently recieving chemo tx. Pt has lost 20 kg (8.2%) since 09/29/18. Pt did recieve [facility]. Alb 2.6, Bg 76-203. K+ 3.8, Hct 31.6, Hgb 10.6. Will cont to monitor. LARISA QUAN Mar 19, 2019 11:02
[2019-03-19 13:20] VITALS: BP 109/72
--- NOTE | 2019-03-19 13:41 | RADIOLOGY IMAGING REPORT ---
FACILITY: [facility] PATIENT NAME: Myles Ricardo : 1950 MR: [id number] V: [id number] EXAM DATE: ORDERING PHYSICIAN: VIDAL MAE TECHNOLOGIST: Location: [facility] Patient: Myles Ricardo : 1950 Visit/Account:[id number] Date of Sevice: 03/19/2019 Examination: MR brain without contrast History: 8 aphasia Comparison: Head CT March 18, 2019, MR December 22, 2018 Technique: Multiplane MR imaging was performed through the brain without contrast. Findings: Diffusion: None Ventricles: Unchanged ex vacuo dilatation. Midline shift: None Extraaxial fluid: None. Midline craniocervical structures: Normal Parenchyma: Multiple small unchanged white matter high signal foci. Vascular flow voids: Normal Orbits and paranasal sinuses: Normal Other: Trace right mastoid fluid. Impression: 1. No acute intracranial abnormality. 2. Mild to moderate unchanged chronic small vessel ischemic change. Report Dictated By: Adebayo Lombardo MD at 03/19/2019 1:33 PM Report E-Signed By: Adebayo Lombardo MD at 03/19/2019 1:37 PM [id number]
--- NOTE | 2019-03-19 14:41 | RADIOLOGY IMAGING REPORT ---
FACILITY: [facility] PATIENT NAME: Myles Ricardo : 1950 MR: [id number] V: [id number] EXAM DATE: ORDERING PHYSICIAN: VIDAL MAE TECHNOLOGIST: Location: [facility] Patient: Myles Ricardo : 1950 Visit/Account:[id number] Date of Sevice: 03/19/2019 CAROTID HISTORY: expressive aphasia COMPARISON: None. FINDINGS: Grayscale, duplex and color Doppler interrogation of the extracranial carotid and vertebral arteries was performed bilateral. On the right, peak systolic velocities within the common and internal carotid arteries are 79 and 71 cm/sec respectively. There is intimal thickening in the distal right common carotid artery and a sma ll to moderate amount of plaque at the right carotid bulb extending into the proximal right internal carotid artery. Antegrade flow within the common, internal and external carotid arteries as well as vertebral artery. ICA/CCA ratio 0.9. On the left, peak systolic velocities within the common and internal carotid arteries are 93 and 56 c m/sec respectively. There is intimal thickening in the distal left common carotid artery and small a mount of plaque left carotid bulb extending into the left internal carotid artery. Antegrade flow wi thin the common, internal and external carotid arteries as well as vertebral artery. ICA/CCA ratio 0. 6. Incidentally noted is a 1.8 cm isoechoic nodule within the right lobe the thyroid IMPRESSION: There is intimal thickening in the distal common carotid arteries bilaterally with a small to moderat e amount of plaque at the right carotid bulb extending into the proximal right internal carotid arter y. There is also a small amount of plaque at the left carotid bulb extending into the left internal carotid artery. No hemodynamically significant lesions identified by velocity criteria Incidentally noted is a 1.8 cm isoechoic nodule in the right lobe of the thyroid. Thyroid ultrasound may be helpful Velocity criteria are extrapolated from diameter data as defined by the Society of Radiologists in Ul trasound Consensus Conference Radiology 2003; 229;340-346 Report Dictated By: Camelia Lara MD at 03/19/2019 2:21 PM Report E-Signed By: Camelia Lara MD at 03/19/2019 2:36 PM WSN:[id number]
[2019-03-19 15:42] VITALS: BP 105/57
--- NOTE | 2019-03-19 15:45 | Hospitalist Depart ---
Discharge Summary Reason for Hosp/Final Diag: (1) Expressive aphasia Status: Acute Hospital Course & Plan: He did present with intermittent aphasia. A CT scan of the head was unremarkable. An MRI showed chronic changes and a carotid ultrasound was negative for any significant lesions. (2) Thyroid nodule Hospital Course & Plan: This was incidentally seen on his carotid ultrasound. A thyroid ultrasound is recommended. (3) Atrial fibrillation *Optional Permanent Comment*: Chronic asymptomatic. [id number] score of 2 Last Edited By: Jessie Stoll MD on May 14, 2018 11:01 Status: Chronic Hospital Course & Plan: He is on chronic treatment with Eliquis. His metoprolol was discontinued secondary to low blood pressures. (4) Insulin-requiring or dependent type II diabetes mellitus Status: Chronic Hospital Course & Plan: His sugar was slightly low on admission. He will resume his scheduled insulin and check blood sugars frequently. (5) Pancreatic cancer Status: Chronic Hospital Course & Plan: He has been receiving chemotherapy through [facility] in hopes that his initially unresectable cancer might become resectable. (6) Hypertension Status: Chronic Hospital Course & Plan: His metoprolol and diuretics were discontinued. (7) Venous insufficiency Status: Chronic Hospital Course & Plan: Diuretics were discontinued as above. (8) Hypokalemia Status: Acute Hospital Course & Plan: Resolved with supplementation. Departure Latest Vital Signs Vital Signs 03/19/19 03/19/19 03/19/19 03/19/19 07:45 10:25 13:20 14:26 Temp 98.8 Pulse 89 Resp 16 B/P (MAP) 109/72 (84) Pulse Ox 93 O2 Delivery Room Air O2 Flow Rate 1.0 Weight (Pounds): 198 Weight (Ounces): 6.0 Result Diagram: 03/19/1952403/19/19524 Condition: Improved Discharge: Home, Self Care Discharge Instructions Home Meds Active Scripts Atorvastatin Calcium (ATORVASTATIN CALCIUM) 40 Mg Tablet, 1 TAB PO QDAY, #90 TAB 4 Refills Prov:JESSIE STOLL MD 02/26/19 Apixaban (ELIQUIS) 5 Mg Tablet, 5 MG PO BID, #180 TAB 3 Refills Prov:JESSIE STOLL MD 12/28/18 Meloxicam (MELOXICAM) 15 Mg Tablet, 15 MG PO QDAY, #90 TAB 3 Refills Prov:JESSIE STOLL MD 11/30/18 Tramadol Hcl (TRAMADOL HCL) 50 Mg Tablet, 50 MG PO Q4-6H, #30 TAB Prov:JESSIE STOLL MD 11/28/18 Insulin Aspart 100 Un/Ml Pen (NOVOLOG FLEXPEN) 100 Unit/1 Ml Insuln.pen, 10-45 UNIT SQ TID, #6 BOX 3 Refills Sliding Scale: <100=10 units <200=25 units >300=35 units >400=40 units >500=45 units Prov:JESSIE STOLL MD 11/28/18 Omeprazole (OMEPRAZOLE) 20 Mg Capsule.dr, 1 CAP PO QDAY, #30 CAP 5 Refills Prov:JESSIE STOLL MD 11/09/18 Insulin Glargine,Hum.rec.anlog (Toujeo Solostar) 300 Unit/1 Ml Insuln.pen, 13 UNITS SUBQ QHS, #3 BOX 3 Refills Increase by 2 units every 2 days to keep fasting blood sugars between 80-120 Prov:JESSIE STOLL MD 10/03/18 Fluoxetine Hcl (PROZAC) 40 Mg Capsule, 40 MG PO QDAY, #90 CAPSULE 3 Refills Prov:JESSIE STOLL MD 05/04/18 Allopurinol (ZYLOPRIM) 300 Mg Tablet, 1 TAB PO DAILY, #90 TAB 3 Refills Please establish care with Dr. Stoll on 03/09/18 for further refills. Prov:JESSIE STOLL MD 03/09/18 Reported Medications Potassium Chloride (POTASSIUM CHLORIDE) 10 Meq Capsule.er, 30 MEQ PO BID 03/19/19 Cholecalciferol (Vitamin D3) (VITAMIN D) 5,000 Unit Tablet, 5000 UNIT PO DAILY 03/18/19 Magnesium Oxide (MAGOX 400) 400 Mg Tablet, 400 MG PO BID 01/07/19 Acetaminophen (TYLENOL) 325 Mg Tablet, 325 MG PO BID, TAB 01/07/19 Discontinued Reported Medications Metoprolol Succinate (METOPROLOL SUCCINATE) 50 Mg Tab.er.24h, 2 TAB PO QDAY, TAB 03/19/19 Potassium Gluconate (Potassium) 600 Mg (99 Mg) Tablet, 600 MG PO BID 03/04/19 Metolazone (METOLAZONE) 2.5 Mg Tablet, 2.5 MG PO DAILY 3/21/19 Furosemide (FUROSEMIDE) 20 Mg Tablet, 1 TAB PO DAILY, TAB 01/03/19 Dicyclomine Hcl (DICYCLOMINE HCL) 20 Mg Tablet, 20 MG PO 5XD PRN for PRN 11/28/18 Loperamide Hcl (LOPERAMIDE) 2 Mg Capsule, 2 MG PO PRN for DIARRHEA, CAPSULE Take 2 capsules at the first sign of diarrhea, then 1 capsule Q2 hours until diarrhea free for 12 hrs 11/09/18 Cholecalciferol (Vitamin D3) (VITAMIN D) 1,000 Unit Tablet, 1000 UNIT PO DAILY 08/06/18 Discontinued Scripts Metoprolol Succinate (METOPROLOL SUCCINATE) 100 Mg Tab.er.24h, 0.5 TAB PO QDAY, #1 TAB Prov:JESSIE STOLL MD 02/12/19 Cyclobenzaprine Hcl (CYCLOBENZAPRINE HCL) 5 Mg Tablet, 10 MG PO TID PRN for Pain for 14 Days, #50 TAB 0 Refills take 1 tablet po TID PRN muscle spasm Prov:DOM VILCHIS APRN, FNP 01/28/19 Diet: Diabetic Activity: As Tolerated Venous Thromboembolism Antithrombotics Is Pt On Any Antithrombotics?: Yes AMILCAR HECTOR DO Mar 19, 2019 15:45
[2019-03-19] MEDS ORDERED: XELOD500PT GT (15:47)
[2019-03-19] MEDS ORDERED: HEPARIN FLSH (PORT) 500 UN/5ML ONE (16:38)
== END 2019-03-19 17:23 | disposition home or self-care (01) | DRG 92 ==
LOC: ER 17:03 → MED 22:09
PROVIDERS: ADMIT Internal Medicine; ATTEND Internal Medicine
DX: R47.01 Aphasia (principal); C25.9 Malignant neoplasm of pancreas, unspecified; I48.2 Chronic atrial fibrillation; I10 Essential (primary) hypertension; E11.649 Type 2 diabetes mellitus with hypoglycemia without coma; I87.2 Venous insufficiency (chronic) (peripheral); E87.6 Hypokalemia; G47.33 Obstructive sleep apnea (adult) (pediatric); E78.5 Hyperlipidemia, unspecified; E04.1 Nontoxic single thyroid nodule; F41.8 Other specified anxiety disorders; Z79.4 Long term (current) use of insulin; Z88.0 Allergy status to penicillin; Z88.8 Allergy status to other drugs, medicaments and biological substances; Z79.01 Long term (current) use of anticoagulants; Z95.5 Presence of coronary angioplasty implant and graft; Z92.21 Personal history of antineoplastic chemotherapy
CPT/HCPCS: 36415; 36416; 70450; 70551; 82040; 82247; 82310; 82374; 82435; 82465; 82565; 82947; 82948; 83718; 84075; 84132; 84155; 84295; 84450; 84460; 84478; 84484; 84520; 85025; 93005; 93880; 96361; 96374; 96375; 97161; 97165; 99284; J2270; J2405; J2550; J3480; J7042; J7050

== ENCOUNTER → 2019-03-18 | Outpatient (CLI) | payer OTHER ==
[~2019-03-18] MED LIST changes: +CHOL500045 PO; -OMEP-125 PO; +OMEP-126 PO; +POTA10CA40 PO; +POTA99TA10 PO; +XELOD500PT GT
[2019-03-18 10:22] LABS: PLATELET COUNT, AUTOMATED 233 K/uL (150-450)
--- NOTE | 2019-03-18 12:08 | EKG ---
FACILITY: [facility] - [place] PATIENT NAME: MONICA EUBANKS : [id number] MR: [id number] V: [id number] EXAM DATE: ORDERING PHYSICIAN: BENITO STOLL TECHNOLOGIST: RAQUEL PCT Test Reason : TACHYCARDIA Blood Pressure : / mmHG Vent. Rate : 118 BPM Atrial Rate : 066 BPM P-R Int : 000 ms QRS Dur : 138 ms QT Int : 378 ms P-R-T Axes : 000 085 056 degrees QTc Int : 529 ms Atrial fibrillation with premature ventricular or aberrantly conducted complexes Right bundle branch block Abnormal ECG No previous ECGs available Referred By: Confirmed By:
== END ==
LOC: LAB 09:46
PROVIDERS: ATTEND Emergency Medicine
DX: R00.0 Tachycardia, unspecified (principal); R50.9 Fever, unspecified; R94.31 Abnormal electrocardiogram [ECG] [EKG]
CPT/HCPCS: 36415; 82040; 82247; 82306; 82310; 82374; 82435; 82565; 82607; 82947; 84075; 84132; 84155; 84295; 84450; 84460; 84520; 85025; 86140

== ENCOUNTER → 2019-03-26 | Outpatient (CLI) | payer OTHER ==
[~2019-03-26] MED LIST changes: +DULO60CA56 PO; +POTA10CA40 PO; +XELOD500PT GT
== END ==
LOC: LAB 11:22
PROVIDERS: ATTEND Emergency Medicine
DX: R79.89 Other specified abnormal findings of blood chemistry (principal)
CPT/HCPCS: 36415; 82310; 82374; 82435; 82565; 82947; 84132; 84295; 84520

== ENCOUNTER 2019-04-03 12:11 | Emergency (ER) | payer OTHER ==
--- NOTE | 2019-04-03 12:14 | ER Report ---
History and Physical Time Seen By MD: 12:13 HPI/ROS CHIEF COMPLAINT: Fall HISTORY OF PRESENT ILLNESS: Patient is a 68-year-old male here with complaints of mild headache status post fall on Eliquis. Patient has a history of pancreatic cancer, reportedly was walking in his house when he fell with loss of consciousness. He does have a small abrasion/laceration on his right forehead. Denies visual changes, numbness, motor weakness. Patient also complains of right shoulder pain, right lateral rib pain. Denies shortness breath, abdominal pain, nausea, vomiting. REVIEW OF SYSTEMS: Constitutional: No fever, no chills. Eyes: No discharge. ENT: No sore throat. Cardiovascular: No chest pain, no palpitations. Respiratory: No cough, no shortness of breath. Gastrointestinal: No abdominal pain, no vomiting. Genitourinary: No hematuria. Musculoskeletal: + Right shoulder pain, right lateral and posterior rib pain Skin: No rashes. Neurological: Mild headache, no focal neurological deficits. Allergies: Coded Allergies: doxycycline (Verified Allergy, Mild, states causes uncontrolled bleeding, 10/11/18) Penicillins (Verified Allergy, Unknown, 10/11/18) EHR CONVERSION Home Meds Active Scripts Atorvastatin Calcium (ATORVASTATIN CALCIUM) 40 Mg Tablet, 1 TAB PO QDAY, #90 TAB 4 Refills Prov:BENITO STOLL MD 02/26/19 Apixaban (ELIQUIS) 5 Mg Tablet, 5 MG PO BID, #180 TAB 3 Refills Prov:BENITO STOLL MD 12/28/18 Tramadol Hcl (TRAMADOL HCL) 50 Mg Tablet, 50 MG PO Q4-6H, #30 TAB Prov:BENITO STOLL MD 11/28/18 Insulin Aspart 100 Un/Ml Pen (NOVOLOG FLEXPEN) 100 Unit/1 Ml Insuln.pen, 10-45 UNIT SQ TID, #6 BOX 3 Refills Sliding Scale: <100=10 units <200=25 units >300=35 units >400=40 units >500=45 units Prov:BENITO STOLL MD 11/28/18 Insulin Glargine,Hum.rec.anlog (Toujeo Solostar) 300 Unit/1 Ml Insuln.pen, 13 UNITS SUBQ QHS, #3 BOX 3 Refills Increase by 2 units every 2 days to keep fasting blood sugars between 80-120 Prov:BENITO STOLL MD 10/03/18 Allopurinol (ZYLOPRIM) 300 Mg Tablet, 1 TAB PO DAILY, #90 TAB 3 Refills Please establish care with Dr. Stoll on 03/09/18 for further refills. Prov:BENITO STOLL MD 03/09/18 Reported Medications Metolazone (METOLAZONE) 2.5 Mg Tablet, 2.5 MG PO DAILY 03/26/19 Cyclobenzaprine Hcl (CYCLOBENZAPRINE HCL) 5 Mg Tablet, 5 MG PO TID, #9 TAB 03/26/19 Duloxetine Hcl (CYMBALTA) 60 Mg Capsule.dr, 60 MG PO QDAY, #5 CAP 03/25/19 Capecitabine (XELODA) 500 Mg Tab, 500 MG GT, TAB Pt takes 1600mg Q 12 hrs on days of radiation therapy (mon-mon) 03/19/19 Potassium Chloride (POTASSIUM CHLORIDE) 10 Meq Capsule.er, 20 MEQ PO BID 03/19/19 Cholecalciferol (Vitamin D3) (VITAMIN D) 5,000 Unit Tablet, 5000 UNIT PO DAILY 03/18/19 Magnesium Oxide (MAGOX 400) 400 Mg Tablet, 400 MG PO BID 01/07/19 Smoking Status: Never Smoker Exposure to Second Hand Smoke?: Yes (both parents ) Hx Substance Use Disorder: No Hx Alcohol Use: No Constitutional Vital Sign - Last 24 Hours 04/03/19 04/03/19 04/03/19 12:14 12:16 13:38 Pulse 87 85 Resp 22 B/P (MAP) 118/81 (93) 118/81 131/82 (98) Pulse Ox 94 96 O2 Delivery Room Air Physical Exam General Appearance: The patient is alert, has no immediate need for airway p rotection and no signs of toxicity. No acute distress, alert and oriented Eyes: Pupils equal and round no pallor or injection. ENT, Mouth: Mucous membranes are moist. Respiratory: There are no retractions, lungs are clear to auscultation. Cardiovascular: Regular rate and rhythm. Gastrointestinal: Abdomen is soft and non tender, no masses, bowel sounds normal. Neurological: No focal neurological deficits on examination Skin: Small abrasion/laceration to the right forehead Musculoskeletal: Neck is supple non tender. Tenderness on palpation of the right lateral and posterior ribs, tenderness on palpation and range of motion of the right shoulder [ ] DIFFERENTIAL DIAGNOSIS: After history and physical exam differential diagnosis was considered for fracture, contusion, intracranial bleed, abrasion Medical Decision Making EKG/Imaging Imaging PATIENT NAME: Myles Ricardo : 1950 MR: [id number] V: [id number] EXAM DATE: ORDERING PHYSICIAN: DOUGIE SMALLS TECHNOLOGIST: Location: [facility] [place] Patient: Myles Ricardo : 1950 Visit/Account:[id number] Date of Sevice: 04/03/2019 RIBS RIGHT, CHEST PA LAT History: fall FINDINGS: Comparison studies: 02/27/2019 chest x-ray Tubes and Lines: Implanted chemotherapy port over the right chest wall noted. Lungs and pleura: Well aerated. No evidence of focal consolidation or pleural effusions. Mediastinum: normal. Cardiac silhouette: normal . Osseous structures: Oblique rib series views with a BB placed over the right lower ribs was also performed. Osseous structures appear intact. No displaced rib fractures are identified. IMPRESSION: Normal chest and ribs. No evidence of acute trauma. I would caution that radiographs are insensitive for nondisplaced rib fractures. PATIENT NAME: Myles Ricardo : 1950 MR: [id number] V: [id number] EXAM DATE: ORDERING PHYSICIAN: DOUGIE SMALLS TECHNOLOGIST: Location: [facility] [place] Patient: Myles Ricardo : 1950 Visit/Account:[id number] Date of Sevice: 04/03/2019 RIBS RIGHT, CHEST PA LAT History: fall FINDINGS: Comparison studies: 02/27/2019 chest x-ray Tubes and Lines: Implanted chemotherapy port over the right chest wall noted. Lungs and pleura: Well aerated. No evidence of focal consolidation or pleural effusions. Mediastinum: normal. Cardiac silhouette: normal . Osseous structures: Oblique rib series views with a BB placed over the right lower ribs was also performed. Osseous structures appear intact. No displaced rib fractures are identified. IMPRESSION: Normal chest and ribs. No evidence of acute trauma. I would caution that radiographs are insensitive for nondisplaced rib fractures. PATIENT NAME: Myles Ricardo : 1950 MR: [id number] V: [id number] EXAM DATE: ORDERING PHYSICIAN: DOUGIE SMALLS TECHNOLOGIST: Location: [facility] [place] Patient: Myles Ricardo : 1950 Visit/Account:[id number] Date of Sevice: 04/03/2019 SHOULDER MIN 2 VIEWS RIGHT HISTORY: fall Additional history: None COMPARISON: None. FINDINGS: There is an atypical nondisplaced fracture seen in the acromion process subjacent to the superior cortex. Osseous structures the right shoulder girdle are are intact. No evidence of fractures or dislocations. Moderate vascular atherosclerotic plaque noted in the right shoulder and upper arm. IMPRESSION: Nondisplaced fracture at the tip of the acromion process. PATIENT NAME: Myles Ricardo : 1950 MR: [id number] V: [id number] EXAM DATE: [id number] ORDERING PHYSICIAN: DOUGIE SMALLS TECHNOLOGIST: Location: [facility] [place] Patient: Myles Ricardo : 1950 Visit/Account:[id number] Date of Sevice: 04/03/2019 CT VERTEBRA CERVICAL (NON CON) History: fall on anticoag COMPARISON STUDIES: none TECHNIQUE: Contiguous axial images were obtained from the skull base through the upper thoracic spine without IV contrast administration. Coronal and sagittal reformatted images were obtained from the axial source data. One of the following dose optimization techniques was utilized in the performance of this exam: Automated exposure control; adjustment of the mA and/or kV according to the patient's size; or use of an iterative reconstruction technique. Specific details can be referenced in the facility's radiology CT exam operational policy. FINDINGS: Alignment: Cervical spine is aligned. No evidence of subluxation. Vertebral bodies: Osseous structures intact. No evidence of fracture. There are small epidural calcifications seen at multiple levels. Discs: Disc space height is well-maintained. However, there does appear to be a mild disc bulges involving at least L3-4 through C6-7. Para-vertebral soft tissues: There is a oval hypodense left thyroid nodule measuring 1.8 x 1.0 cm diameter. Moderate calcific plaque seen at the carotid bulbs. Visualized lung / mediastinum: Visualized lung parenchyma normal. No evidence of pneumothorax. IMPRESSION: No evidence of acute pathology and negative for trauma. Probable degenerative disc disease although disc space height well-maintained. Tiny meningeal calcifications possibly a sequelae from remote meningitis. Correlate with history. PATIENT NAME: Myles Ricardo : 1950 MR: [id number] V: [id number] EXAM DATE: ORDERING PHYSICIAN: DOUGIE SMALLS TECHNOLOGIST: Location: [facility] [place] Patient: Myles Ricardo : 1950 Visit/Account:[id number] Date of Sevice: 04/03/2019 CT BRAIN NO CONTRAST History: fall on anticoag TECHNIQUE: Contiguous angled axial images were obtained from the vertex through the base of the skull without intravenous contrast. One of the following dose optimization techniques was utilized in the performance of this exam: Autom ated exposure control; adjustment of the mA and/or kV according to the patient's size; or use of an iterative reconstruction technique. Specific details can be referenced in the facility's radiology CT exam operational policy. COMPARISON STUDIES: Head CT 02/27/2019 FINDINGS: Ventricles / sulci / fissures: Mildly prominent compatible with age-related mild global volume loss. Masses / hemorrhage / midline shift: Negative. Intra-axial findings: Normal. Extra-axial fluid collections: Negative. Intracranial vasculature and dural sinuses: Negative. Skull base / calvarium: Negative. Scalp: There is a small scalp hematoma seen over the right frontal bone. Visualized mastoid air cells / paranasal sinuses: Well aerated. Orbits: Negative IMPRESSION: Small right frontal scalp hematoma. Otherwise unremarkable for age. No intracranial pathology. ED Course/Re-evaluation ED Course Patient is a 68-year-old male here with complaints of fall on anticoagulation with loss of consciousness. Patient is a small abrasion/laceration to the right forehead, tetanus was updated. Due to the mechanism of the fall, CT imaging of the head and C-spine was completed. Patient does complain of right shoulder tenderness on palpation of the anterior aspect as well as range of motion testing, tenderness on palpation of the right lateral and posterior ribs. X-ray imaging of the shoulder and right ribs were completed. CT imaging of the head and C-spine showed no acute fractures or intracranial bleeding. X-ray imaging of the rib and chest showed no displaced rib fractures. There is a small nondisplaced fracture of the tip of the acromion, patient was placed in a sling for comfort. Close PCP follow-up recommended, return precautions provided. Decision to Disposition Date: Apr 03, 2019 Decision to Disposition Time: 14:12 Depart Departure Latest Vital Signs Vital Signs Date Time Temp Pulse Resp B/P (MAP) Pulse Ox O2 Delivery O2 Flow Rate FiO2 04/03/19 13:38 85 131/82 (98) 96 04/03/19 12:16 22 Room Air Impression: Primary Impression: Fall Additional Impression: Fracture of acromion of scapula Condition: Improved Disposition: HOME OR SELF-CARE Referrals: BENITO STLOL MD (PCP) Patient Instructions: Fall Prevention (ED) Additional Instructions: A small nondisplaced fracture of the acromion of the right shoulder was identified, please use shoulder sling for comfort. You may take Tylenol as needed for pain control. No acute intracranial findings of bleeding or fractures were identified. Please follow-up with your family doctor 4-48 hours. Return promptly if you develop chest pain, shortness breath, fevers, chills, numbness, motor weakness. Problem Qualifiers DOUGIE SMALLS DO Apr 03, 2019 12:14
[2019-04-03] MEDS ORDERED: DIPHTH/TETANUS/ACEL. PERTUSSIS IM ONLY ONE (12:45)
--- NOTE | 2019-04-03 13:34 | RADIOLOGY IMAGING REPORT ---
FACILITY: [facility] - [place], [place] PATIENT NAME: Myles Ricardo : 1950 MR: [id number] V: [id number] EXAM DATE: ORDERING PHYSICIAN: DOUGIE SMALLS TECHNOLOGIST: Location: [facility] Patient: Myles Ricardo : 1950 Visit/Account:[id number] Date of Sevice: 04/03/2019 CT BRAIN NO CONTRAST History: fall on anticoag TECHNIQUE: Contiguous angled axial images were obtained from the vertex through the base of the sku ll without intravenous contrast. One of the following dose optimization techniques was utilized in th e performance of this exam: Automated exposure control; adjustment of the mA and/or kV according to t he patient's size; or use of an iterative reconstruction technique. Specific details can be referen keerthi in the facility's radiology CT exam operational policy. COMPARISON STUDIES: Head CT 02/27/2019 FINDINGS: Ventricles / sulci / fissures: Mildly prominent compatible with age-related mild global volume loss. Masses / hemorrhage / midline shift: Negative. Intra-axial findings: Normal. Extra-axial fluid collections: Negative. Intracranial vasculature and dural sinuses: Negative. Skull base / calvarium: Negative. Scalp: There is a small scalp hematoma seen over the right frontal bone. Visualized mastoid air cells / paranasal sinuses: Well aerated. Orbits: Negative IMPRESSION: Small right frontal scalp hematoma. Otherwise unremarkable for age. No intracranial pathology. Report Dictated By: Laith Villagran MD at 04/03/2019 1:20 PM Report E-Signed By: Laith Villagran MD at 04/03/2019 1:29 PM WSN:[id number]
--- NOTE | 2019-04-03 13:42 | RADIOLOGY IMAGING REPORT ---
FACILITY: [facility] PATIENT NAME: Myles Ricardo : 1950 MR: [id number] V: [id number] EXAM DATE: ORDERING PHYSICIAN: DOUGIE SMALLS TECHNOLOGIST: [place] [facility] [place]: [place] : 1950 Visit/Account:[id number] Date of Sevice: 04/03/2019 CT VERTEBRA CERVICAL (NON CON) History: fall on anticoag COMPARISON STUDIES: none TECHNIQUE: Contiguous axial images were obtained from the skull base through the upper thoracic spin e without IV contrast administration. Coronal and sagittal reformatted images were obtained from the axial source data. One of the following dose optimization techniques was utilized in the performance of this exam: Automated exposure control; adjustment of the mA and/or kV according to the patient's s ize; or use of an iterative reconstruction technique. Specific details can be referenced in the [facility]'s radiology CT exam operational policy. FINDINGS: Alignment: Cervical spine is aligned. No evidence of subluxation. Vertebral bodies: Osseous structures intact. No evidence of fracture. There are small epidural gayla cifications seen at multiple levels. Discs: Disc space height is well-maintained. However, there does appear to be a mild disc bulges inv olving at least L3-4 through C6-7. Para-vertebral soft tissues: There is a oval hypodense left thyroid nodule measuring 1.8 x 1.0 cm d iameter. Moderate calcific plaque seen at the carotid bulbs. Visualized lung / mediastinum: Visualized lung parenchyma normal. No evidence of pneumothorax. IMPRESSION: No evidence of acute pathology and negative for trauma. Probable degenerative disc disease although disc space height well-maintained. Tiny meningeal calcifications possibly a sequelae from remote meningitis. Correlate with history. Report Dictated By: Laith Villagran MD at 04/03/2019 1:29 PM Report E-Signed By: Laith Villagran MD at 04/03/2019 1:36 PM WSN:[email or web address]
--- NOTE | 2019-04-03 13:46 | RADIOLOGY IMAGING REPORT ---
FACILITY: [facility] - [place] PATIENT NAME: Myles Ricardo : 1950 MR: [id number] V: [id number] EXAM DATE: ORDERING PHYSICIAN: DOUGIE SMALLS TECHNOLOGIST: Location: [facility] [place] Patient: Myles Ricardo : 1950 Visit/Account:[id number] Date of Sevice: 04/03/2019 RIBS RIGHT, CHEST PA LAT History: fall FINDINGS: Comparison studies: 02/27/2019 chest x-ray Tubes and Lines: Implanted chemotherapy port over the right chest wall noted. Lungs and pleura: Well aerated. No evidence of focal consolidation or pleural effusions. Mediastinum: normal. Cardiac silhouette: normal . Osseous structures: Oblique rib series views with a BB placed over the right lower ribs was also pe rformed. Osseous structures appear intact. No displaced rib fractures are identified. IMPRESSION: Normal chest and ribs. No evidence of acute trauma. I would caution that radiographs are insensit niko for nondisplaced rib fractures. Report Dictated By: Laith Villagran MD at 04/03/2019 1:37 PM Report E-Signed By: Laith Villagran MD at 04/03/2019 1:40 PM WSN:[email or web address]
--- NOTE | 2019-04-03 13:47 | RADIOLOGY IMAGING REPORT ---
FACILITY: [facility] - [place] PATIENT NAME: Myles Ricardo : 1950 MR: [id number] V: [id number] EXAM DATE: ORDERING PHYSICIAN: DOUGIE SMALLS TECHNOLOGIST: Location: [facility] Patient: Myles Ricardo : 1950 Visit/Account:[id number] Date of Sevice: 04/03/2019 RIBS RIGHT, CHEST PA LAT History: fall FINDINGS: Comparison studies: 02/27/2019 chest x-ray Tubes and Lines: Implanted chemotherapy port over the right chest wall noted. Lungs and pleura: Well aerated. No evidence of focal consolidation or pleural effusions. Mediastinum: normal. Cardiac silhouette: normal . Osseous structures: Oblique rib series views with a BB placed over the right lower ribs was also pe rformed. Osseous structures appear intact. No displaced rib fractures are identified. IMPRESSION: Normal chest and ribs. No evidence of acute trauma. I would caution that radiographs are insensit niko for nondisplaced rib fractures. Report Dictated By: Laith Villagran MD at 04/03/2019 1:37 PM Report E-Signed By: Laith Villagran MD at 04/03/2019 1:40 PM WSN:[email or web address]
--- NOTE | 2019-04-03 13:57 | RADIOLOGY IMAGING REPORT ---
[place] [facility] [place] Myles Ricardo : 1950 MR: [id number] V: [id number] EXAM DATE: ORDERING PHYSICIAN: DOUGIE SMALLS TECHNOLOGIST: Location: Patient: Myles Ricardo : 1950 Visit/Account:[id number] Date of Sevice: 04/03/2019 SHOULDER MIN 2 VIEWS RIGHT HISTORY: fall Additional history: None COMPARISON: None. FINDINGS: There is an atypical nondisplaced fracture seen in the acromion process subjacent to the superior cor kristian. Osseous structures the right shoulder girdle are are intact. No evidence of fractures or dislo cations. Moderate vascular atherosclerotic plaque noted in the right shoulder and upper arm. IMPRESSION: Nondisplaced fracture at the tip of the acromion process. Report Dictated By: Laith Villagran MD at 04/03/2019 1:45 PM Report E-Signed By: Laith Villagran MD at 04/03/2019 1:51 PM WSN:[email or web address]
[2019-04-03 14:00] VITALS: BP 108/67
== END 2019-04-03 14:25 | disposition home or self-care (01) ==
LOC: ER 12:16
DX: S42.121A Displaced fracture of acromial process, right shoulder, initial encounter for closed fracture (principal); S01.81XA Laceration without foreign body of other part of head, initial encounter; W18.30XA Fall on same level, unspecified, initial encounter
CPT/HCPCS: 70450; 71046; 71100; 72125; 73030; 90471; 90715; 99284; A4565

== ENCOUNTER 2019-04-16 11:45 | Outpatient (RCR) | payer OTHER ==
[2019-01-21 15:04] VITALS: BP 105/62
[2019-01-21 15:22] LABS: PLATELET COUNT, AUTOMATED 257 K/uL (150-450)
[2019-01-24] MEDS: LIDOCAINE/SOD BICARB 8.4% SYR ID PRN (14:56)
[2019-01-24] MEDS: HEPARIN FLSH (PORT) 500 UN/5ML IVP PRN (15:02)
[2019-01-24 15:03] VITALS: BP 104/81
[2019-01-24 17:09] VITALS: BP 98/68
[2019-01-28 09:20] VITALS: BP 100/66
[2019-01-28] MEDS: LIDOCAINE/SOD BICARB 8.4% SYR ID PRN (10:06)
[2019-01-28] MEDS: DEXTROSE 5%(*) 100 ML BAG 100 ML IVPB PRN (10:06)
--- NOTE | 2019-01-28 13:25 | NUR ---
SUZANNE visited with pt today per BAKERY MACHINE MECHANIC request. BAKERY MACHINE MECHANIC noted the pt was interested in counseling, and was looking for a referral. SUZANNE met with the pt who reported he realized he was starting to have difficulty coping with all his stressors during treatment. 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 He also spoke at length about the challenges he has had with his lately, adding he wishes she would finally be hired somewhere because they have had a lot of time together and their personalities are starting to wear on each other. Suzanne gave pt a list of counselors, with two additional business cards. SUZANNE will plan to check in with the pt when he is here at his next appointment.
[2019-01-28 17:00] VITALS: BP 103/66
--- NOTE | 2019-01-29 09:01 | Medical Nutrition Therapy ---
Nutritional Education Nutrition Education Topic: Other (Pancreatic CA) Learning Readiness: Little Interest Teaching Methods: Discussion Teaching Recipient: Patient Nutrition Counseling: Pt states he doesn't have any nutrtional questions or concerns at this time. Pt states he tries to eat meals and snacks. Pt states he know what she can eat. Discussed foods that could add additional kcals to his current diet. Nutrition Monitoring & Eval RD Patient Assessment Time: [address] Assessment Type: RD Education Copies To Copies to: BENITO STOLL MD; NICOLE PATTERSON MD ; LARISA ORTEGA Jan 29, 2019 09:01
--- NOTE | 2019-01-29 16:35 | ONCOLOGY FOLLOW UP NOTE ---
EVENT DATE: January 28, 2019 DIAGNOSIS Locally advanced, currently unresectable pancreatic cancer. CHIEF COMPLAINT Mr. Ricardo is here today for followup and FOLFIRINOX Cycle #6, Day 1. His second cycle and all subsequent cycles have required a 25% dose reduction secondary to toxicity. HISTORY OF PRESENT ILLNESS Mr. Ricardo returns. His third cycle was delayed due to neutropenia. He has received all subsequent cycles without any major issues. His fatigue has been moderate. His biggest complaint has been back pain. He also remains on Eliquis. For his back pain, he is using Tramadol a couple of tablets per day. He has also had some electrolyte imbalance, and we have been struggling to maintain his magnesium and potassium levels. He has been hypokalemic and remains on oral potassium. He remains on diuretic secondary to bilateral lower extremity edema. His edema has improved and currently is stable. After two cycles, his scan did not show the ability to resect his tumor, but we are planning on repeating re-staging scans at the end of January in order to reevaluate if it is now appropriate to move forward with surgery. He has decreased ibuprofen to a couple of tablets per day and uses one or two Tylenol per day. Bone scan was recently obtained secondary to findings on MRI. His MRI of the lumbar spine on January 07, 2019, revealed some subacute L2 and L4 wedge compression fractures which may represent benign insufficiency fractures. Bone scan on January 17, 2019, revealed some increase uptake at L2 and L4 vertebral bodies which correspond to the compression fractures seen on recent CT and MRIs. There is also some uptake at the distal aspect of the left 11th rib, which corresponds to a healing fracture. There were no lytic lesions seen. We recently discontinued Prozac and switched him over to Cymbalta in efforts to see if this would help with his mood and his musculoskeletal pain. We communicated this to his PCP, Dr. Real, as she initially prescribed his Prozac. Andrez tells me today that he is under quite a bit of stress at home. 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 He also seems to be upset with his currently. She is not here with him at the visit. He continues to have some back pain today, though tells me that he notices this is worse when constipated, and if he gets that under control, it is much better. He is interested in massage and is telling me that he is even interested in some counseling for himself. He tells me that he does not feel like he has come to terms with his disease. ONCOLOGY HISTORY Patient is a 68-year-old male who presented in September 2018 with weight loss, jaundice, and acute kidney injury. CT scan showed a large pancreatic head mass measuring 5 x 4.4 x 5.5 cm with possible invasion in the duodenum that encased the SMA, GDA, and mesenteric vessels, and near occlusion of the SMV. The distal common bile duct and pancreatic duct were both obstructed. He was noted to have a creatinine of 6 with evidence of adrenal insufficiency. CA19-9 was 3,010. ERCP was attempted on October 04, 2018, without success. He had a biliary stent placed on October 16, 2018. Total bilirubin has decreased and normalized. He began FOLFIRINOX on November 12, 2018. Dose was decreased by 25% with Cycle #2 due to excessive toxicity. Therefore, a total bone scan was ordered. Bone scan was done on January 17, 2019, and revealed uptake at the L2 and L4 vertebral bodies, but did not reveal any lytic lesions consistent with metastatic disease. Also, there was some uptake shown at the left 11th rib, which corresponded to a healing fracture. PAST MEDICAL HISTORY 1. Type 2 diabetes. 2. Hyperlipidemia. 3. Hypertension. 4. Obstructive sleep apnea. 5. Gout. 6. Locally advanced pancreatic cancer, September 2018. 7. Atrial fibrillation. FAMILY HISTORY Remarkable for mainly GI cancers in his family. Patient deferred genetic testing at this time. SOCIAL HISTORY Patient is . They have one grown daughter. 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 MEDICATIONS 1. Toujeo. 2. NovoLog. 3. Spironolactone 50 mg daily. 4. Lipitor 40 mg daily. 5. Eliquis. 6. Fluoxetine 40 mg daily. 7. Allopurinol 300 mg daily. 8. Vitamin D3. 9. Metoprolol 50 mg daily. 10. Omeprazole 20 mg daily. 11. Dicyclomine 20 mg q.i.d. p.r.n. abdominal cramping. 12. Meloxicam. ALLERGIES 1. PENICILLIN. 2. DOXYCYCLINE. REVIEW OF SYSTEMS CONSTITUTIONAL: Patient denies any recent fevers, chills, or night sweats. He believes his weight has been stable. HEENT: No vision changes. No significant epistaxis or nasal drainage. No mouth sores. CARDIOVASCULAR: He denies any chest pain, syncope, or presyncope. RESPIRATORY: He denies any cough, shortness of breath, pleuritic chest pain, or hemoptysis. GASTROINTESTINAL: No abdominal pain, nausea, or vomiting. He has noticed some occasional constipation and tells me that his back pain is worse when constipated. He is using some [id number] measures as well as dietary measures like prune juice. No major diarrhea. Occasionally, he has three semi- loose stools a day. This is usually after chemotherapy for a few days. He manages this well with Imodium. He is eating and drinking well. He reports that he has been managing his blood sugars and has had only two instances in which his blood sugar dropped to the 50s. Otherwise, prior to that, his blood sugar was quite elevated in the 300 range. His PCP is managing this. He is on a sliding scale. GENITOURINARY: No dysuria, hematuria, or genitourinary discharge. MUSCULOSKELETAL: Positive for lower back pain. This does not radiate. ENDOCRINE: No heat or cold intolerance. He continues to report fatigue and overall decreased endurance. PSYCHIATRIC: He reports a history of depression. He has quite a few psychosocial stressors going on as noted above. We recently switched him over to Cymbalta in efforts to help both mood and musculoskeletal pain. He denies any severe anxiety, severe depression, suicidal or homicidal ideation. He is interested in counseling sessions. He tells me that he does not think he has fully come to terms with his disease. He is interested in help for this. SKIN: He denies any rash or suspicious lesions. EXTREMITIES: His bilateral lower extremity edema has been stable. No worsening. The remainder of a 12-point review of systems is performed today and is otherwise negative. PHYSICAL EXAMINATION VITAL SIGNS: Weight 88.3 kg, down 1 kg. T 98.2, pulse 98, R 18, BP 100/47, oxygen saturation 96% room air. GENERAL: In general, this is a pleasant, somewhat obese, chronically ill- appearing 68-year-old man who appears to be in no acute distress. He still continues to work. HEAD: Normocephalic, atraumatic. EYES: Sclerae anicteric. ENT, MOUTH: No mucositis. No suspicious lesions. NECK: Supple. No lymphadenopathy. No JVD. LUNGS: Clear breath sounds to auscultation bilaterally. No wheezes, rales, or rhonchi. CARDIOVASCULAR: Regular rate and rhythm. ABDOMEN: Soft, somewhat obese, nontender, nondistended. Bowel sounds positive x4. No organomegaly. No pain to palpation. EXTREMITIES: Bilateral lower extremity edema has been stable and considerably improved compared to November 2018. No clubbing or cyanosis. PSYCHIATRIC: Mood and affect are appropriate. NEUROLOGIC: Patient is awake, alert, oriented x3. MUSCULOSKELETAL: Gait is steady. LABORATORY CBC today: WBC 8.7, ANC 6.7, hemoglobin 12.8, hematocrit 39.1%, platelets 230,000. CMP today: Sodium minimally low at 135, potassium normal, 4.2, serum creatinine up at 1.2. This has come down from 1.6 previously. Calcium normal at 9.6. Magnesium significantly low, 1.0. AST normal, 29, ALT normal, 19, total bilirubin normal, 0.6, total protein normal at 7.4 with normal albumin of 4.0. Alkaline phosphatase is minimally elevated at 144. Tumor markers: CA19-9 on January 07, 2019, up to 647. This was previously 280 on December 10, 2018. IMAGING MRI lumbar spine with and without contrast on 01/07/19: 1. Likely subacute L2 and L4 wedge compression fractures with 40% L2 vertebral body height loss and 25% L4 vertebral body height loss. Marrow edema throughout the L2 vertebral body related to the fracture. No discrete L2 vertebral body metastasis. These may represent benign insufficiency fractures. Given history of pancreatic cancer, followup MRI with and without contrast should be considered in one to two months to exclude the possibility of underlying metastatic disease, particularly at L2. 2. Moderate to severe L3-L4 and L4-L5 thecal sac narrowing secondary to the constellation of chronic/degenerative findings described above. 3. Multilevel foraminal narrowing, see [id number] comments. IMPRESSION AND PLAN Mr. Ricardo is a pleasant 68-year-old gentleman with the followin. Locally advanced, currently unresectable pancreatic cancer. Patient remains on FOLFIRINOX. He will proceed with Cycle #6, Day 1 today at current 25% dose reduction. 2. Hypokalemia: Currently resolved with normal potassium level. He will remain on oral potassium supplementation. 3. Hypomagnesemia: Down lower today to 1.0. He is on oral replacement with magnesium oxide 400 mg one tablet daily. I have instructed the patient to increase this up to two tablets of magnesium oxide daily. We will replace magnesium today with 2 g magnesium sulfate intravenously. 4. Back pain: Recent imaging done to include bone scan. He will continue to use tramadol p.r.n. I have also sent in an e-prescription for Flexeril 10 mg one p.o. t.i.d. p.r.n., #50, no refills. 5. Constipation: We discussed [id number] and dietary measures. He will use Colace and MiraLAX in addition if needed. 6. Depression: Recently switched over to Cymbalta 30 mg. He is going to increase this up to 60 mg, maximum dose, starting tomorrow. We discontinued his fluoxetine and replaced this with Cymbalta in efforts to help both his depression and his musculoskeletal pain. For now, he will continue on this. 7. Hyperglycemia: He will continue on his sliding scale insulin per Dr. Real. He has had two instances of hypoglycemia at home, and we discussed this at length today. 8. Patient has re-imaging scheduled for 02/06/19. He is aware that our plan is to proceed with chemotherapy aggressively until that time at a minimum. Hopefully, he will become a surgical candidate, but we are concerned that this will not be the case as he has had rising tumor markers. 9. Patient will return to clinic Monday for pump disconnect and may need another round of magnesium intravenous replacement. 10. Patient will return to clinic in two weeks to follow up and to initiate FOLFIRINOX Cycle #6, Day 15. MTDD
[2019-01-30 15:15] VITALS: BP 91/69
[2019-02-04 15:00] VITALS: BP 108/68
[2019-02-04 15:25] LABS: PLATELET COUNT, AUTOMATED 213 K/uL (150-450)
[2019-02-04] MEDS: HEPARIN FLSH (PORT) 500 UN/5ML IVP PRN (15:51)
[2019-02-04] MEDS: LIDOCAINE/SOD BICARB 8.4% SYR ID PRN (15:51)
[2019-02-04 17:44] VITALS: BP 70/52
[2019-02-07 13:34] VITALS: BP 85/52
[2019-02-07] MEDS: LIDOCAINE/SOD BICARB 8.4% SYR ID PRN (13:36)
[2019-02-07] MEDS: HEPARIN FLSH (PORT) 500 UN/5ML IVP PRN (13:36)
[2019-02-07 16:55] VITALS: BP 90/64
[2019-02-11 15:03] VITALS: BP 102/63
[2019-02-11 15:17] LABS: PLATELET COUNT, AUTOMATED 211 K/uL (150-450)
[2019-02-18 08:32] VITALS: BP 100/57
[2019-02-18] MEDS: LIDOCAINE/SOD BICARB 8.4% SYR ID PRN (10:18)
[2019-02-18] MEDS: DEXTROSE 5%(*) 100 ML BAG 100 ML IVPB PRN (10:19)
[2019-02-18 16:50] VITALS: BP 108/72
--- NOTE | 2019-02-19 11:54 | [facility] ONCOLOGY NOTE ---
EVENT DATE: February 18, 2019 CHIEF COMPLAINT/REASON FOR VISIT Mr. Ricardo is a 68-year old gentleman with borderline resectable pancreatic cancer that is here prior to his 7th and last cycle of FOLFIRINOX prior to pursuing chemoradiation with Xeloda plus radiation followed by hopeful surgery. HISTORY OF PRESENT ILLNESS Mr. iRcardo returns. Since our last visit, he had scans in [place] as well as a followup with Dr. Barajas. He had significant improving in his imaging but is still abutting the SMA, which may affect his surgical candidacy for cure. As a result, we plan to give additional FOLFIRINOX x1 cycle and then consider moving forward with SBRT and concurrent Xeloda therapy. Overall, he is doing well. He is ready to proceed with his last cycle. He has had extensive conversations with myself and Dr. Barajas regarding moving forward. He has a consultation with Dr. Lancaster here to consider SBRT next week. This is perfect as he does need a little bit of time to recover from this cycle of FOLFIRINOX. ONCOLOGY HISTORY Patient is a 68-year-old male who presented in September 2018 with weight loss, jaundice, and acute kidney injury. CT scan showed a large pancreatic head mass measuring 5 x 4.4 x 5.5 cm with possible invasion in the duodenum that encased the SMA, GDA, and mesenteric vessels, and near occlusion of the SMV. The distal common bile duct and pancreatic duct were both obstructed. He was noted to have a creatinine of 6 with evidence of adrenal insufficiency. CA19-9 was 3,010. ERCP was attempted on October 04, 2018, without success. He had a biliary stent placed on October 16, 2018. Total bilirubin has decreased and normalized. He began FOLFIRINOX on November 12, 2018. Dose was decreased by 25% with Cycle #2 due to excessive toxicity. Therefore, a total bone scan was ordered. Bone scan was done on January 17, 2019, and revealed uptake at the L2 and L4 vertebral bodies, but did not reveal any lytic lesions consistent with metastatic disease. Also, there was some uptake shown at the left 11th rib, which corresponded to a healing fracture. PAST MEDICAL HISTORY 1. Type 2 diabetes. 2. Hyperlipidemia. 3. Hypertension. 4. Obstructive sleep apnea. 5. Gout. 6. Locally advanced pancreatic cancer, September 2018. 7. Atrial fibrillation. FAMILY HISTORY Remarkable for mainly GI cancers in his family. Patient deferred genetic testing at this time. SOCIAL HISTORY Patient is . They have one grown daughter. 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 MEDICATIONS 1. Toujeo. 2. NovoLog. 3. Spironolactone 50 mg daily. 4. Lipitor 40 mg daily. 5. Eliquis. 6. Fluoxetine 40 mg daily. 7. Allopurinol 300 mg daily. 8. Vitamin D3. 9. Metoprolol 50 mg daily. 10. Omeprazole 20 mg daily. 11. Dicyclomine 20 mg q.i.d. p.r.n. abdominal cramping. 12. Meloxicam. ALLERGIES 1. PENICILLIN. 2. DOXYCYCLINE. REVIEW OF SYSTEMS CONSTITUTIONAL: No fevers, chills, significant weight change. HEENT: No headaches or vision changes. CARDIOVASCULAR: No chest pain, dyspnea on exertion or edema. RESPIRATORY: No shortness of breath, wheeze or cough. : No nausea or vomiting. NEUROLOGIC: Occasional short-term memory loss related to chemotherapy but mild and very tolerable, he states. ABDOMEN: No nausea or vomiting. : No dysuria or hematuria. MUSCULOSKELETAL: No weakness, significant joint pain. PSYCHIATRIC: No anxiety or depression. He is under high stress, helping to take care of his sister as well as his own cancer. Remainder of 14-point review of systems otherwise negative. PHYSICAL EXAMINATION VITAL SIGNS: Blood pressure 100/57, pulse 85, respiratory rate 16, temperature 97.3 Fahrenheit, oxygen saturation 96% on room air. Weight 91 kg. Pain 3/10, fatigue 0/10. GENERAL: Stable condition, resting comfortably in chair. ECOG Performance Status: 1. Ready to proceed. HEENT: Normocephalic, atraumatic. ABDOMEN: Soft, nontender. EXTREMITIES: No clubbing, cyanosis or significant edema. Remainder of physical exam otherwise deferred today due to amount of time spent in counseling and coordination of care. IMPRESSION/REPORT/PLAN Mr. Ricardo is a pleasant 68-year old gentleman with the following: Borderline resectable pancreatic cancer. Unfortunately, his most recent scan showed that it was still abutting the superior mesenteric artery, although it is much improved, which is encouraging. We plan to treat with one more cycle of FOLFIRINOX and then consider SBRT with chemotherapy. We would utilize Xeloda. We need to get through this cycle of FOLFIRINOX and then I will see him again in followup to move forward with chemo RT, hopefully. I answered all of his many questions today. Billing: Return visit level 5. Total time 60 minutes, counseling and coordination of care time 35 minutes. MTDD
[2019-02-20 15:13] VITALS: BP 105/58
[2019-02-20] MEDS: HEPARIN FLSH (PORT) 500 UN/5ML IVP PRN (15:13)
[2019-02-25 14:43] VITALS: BP 108/67
[2019-02-25 15:03] LABS: PLATELET COUNT, AUTOMATED 263 K/uL (150-450)
[2019-03-04 13:05] VITALS: BP 100/60
[2019-03-04 13:26] LABS: PLATELET COUNT, AUTOMATED 213 K/uL (150-450)
[2019-03-04 14:30] VITALS: BP_SYST 69; BP_SYST 90; BP_DIAS 47; BP_DIAS 54
[2019-03-04] MEDS: LIDOCAINE/SOD BICARB 8.4% SYR ID PRN (15:01)
[2019-03-04] MEDS: HEPARIN FLSH (PORT) 500 UN/5ML IVP PRN (16:45)
--- NOTE | 2019-03-05 16:01 | ONCOLOGY FOLLOW UP NOTE ---
EVENT DATE: March 04, 2019 CHIEF COMPLAINT/REASON FOR VISIT Mr. Ricardo is a very pleasant 68-year-old gentleman with borderline resectable pancreatic cancer who is here after his seventh cycle of FOLFIRINOX prior to chemoradiation with Xeloda. We hoped that we would finish this and then proceed with hopeful curative surgery. HISTORY OF PRESENT ILLNESS Mr. Ricardo returns. We finished his seventh cycle of FOLFIRINOX after his scans earlier in the spring in [place] showed significant improvement in his imaging, but still abutting the SMA. We finished the additional cycle of FOLFIRINOX, and he met with Dr. Lancaster with Radiation Oncology. We plan to pursue SBRT with concurrent Xeloda therapy. At this point, I feel he can start at any time and leave that up to Dr. Lancaster as it has been greater than two weeks since his last chemotherapy. We are going to arrange for the Xeloda as soon as we can. This has been ordered. After the visit with this patient, which was extensive with his , I spoke with [place] as the patient had a presyncopal event on the way to infusion. He continues to take the Lasix to try to help with his legs, but I asked him to discontinue it as I think he is intravascularly depleted, leading to hypotension and these episodes. I would also like him to stop the metoprolol. I think he is more sensitive to his blood pressure medicines as he has lost weight with his cancer. He does not feel comfortable stopping the Lasix as he hates the edema in his legs, but is comfortable stopping the metoprolol. Ideally, this would be the reverse. ONCOLOGY HISTORY Patient is a 68-year-old male who presented in September 2018 with weight loss, jaundice, and acute kidney injury. CT scan showed a large pancreatic head mass measuring 5 x 4.4 x 5.5 cm with possible invasion in the duodenum that encased the SMA, GDA, and mesenteric vessels, and near occlusion of the SMV. The distal common bile duct and pancreatic duct were both obstructed. He was noted to have a creatinine of 6 with evidence of adrenal insufficiency. CA19-9 was 3,010. ERCP was attempted on October 04, 2018, without success. He had a biliary stent placed on October 16, 2018. Total bilirubin has decreased and normalized. He began FOLFIRINOX on November 12, 2018. Dose was decreased by 25% with Cycle #2 due to excessive toxicity. Therefore, a total bone scan was ordered. Bone scan was done on January 17, 2019, and revealed uptake at the L2 and L4 vertebral bodies, but did not reveal any lytic lesions consistent with metastatic disease. Also, there was some uptake shown at the left 11th rib, which corresponded to a healing fracture. PAST MEDICAL HISTORY 1. Type 2 diabetes. 2. Hyperlipidemia. 3. Hypertension. 4. Obstructive sleep apnea. 5. Gout. 6. Locally advanced pancreatic cancer, September 2018. 7. Atrial fibrillation. FAMILY HISTORY Remarkable for mainly GI cancers in his family. Patient deferred genetic testing at this time. SOCIAL HISTORY Patient is . They have one grown daughter. 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 MEDICATIONS 1. Toujeo. 2. NovoLog. 3. Spironolactone 50 mg daily. 4. Lipitor 40 mg daily. 5. Eliquis. 6. Fluoxetine 40 mg daily. 7. Allopurinol 300 mg daily. 8. Vitamin D3. 9. Metoprolol 50 mg daily. 10. Omeprazole 20 mg daily. 11. Dicyclomine 20 mg q.i.d. p.r.n. abdominal cramping. 12. Meloxicam. ALLERGIES 1. PENICILLIN. 2. DOXYCYCLINE. REVIEW OF SYSTEMS CONSTITUTIONAL: No fevers, chills, or significant weight change. HEENT: No headache or vision changes. CARDIOVASCULAR: No chest pain or dyspnea on exertion. Positive edema in the legs. RESPIRATORY: No shortness of breath, wheeze, or cough. GASTROINTESTINAL: No nausea or vomiting. NEUROLOGIC: Occasional short-term memory loss, but is mild. GENITOURINARY: No dysuria or hematuria. MUSCULOSKELETAL: No weakness or joint pain. He does have significant back pain due to known compression fractures. PSYCHIATRIC: No anxiety or depression. High stress. VASCULAR: Patient has episodes of presyncope and syncope, likely related to the weight loss and overmedication. Please see the HPI. PHYSICAL EXAMINATION VITAL SIGNS: Blood pressure 100/60 with a pulse of 81. Orthostatics to be documented in the chart after this visit. Respiratory rate 18, temperature 97.5 Fahrenheit, oxygen saturation 93% on room air. Weight 89.7 kg. Pain 1/10 in the back. Fatigue 3/10. GENERAL: Stable condition, resting comfortably in the chair. ECOG Performance Status of 1. HEENT: Normocephalic, atraumatic. CARDIOVASCULAR: Deferred. EXTREMITIES: Edema 1+ SKIN: Changes consistent with chronic anemia. PSYCHIATRIC: No anxiety or depression. Remainder of physical exam deferred today to amount of extensive time spent in counseling and coordination of care. After the visit, he had an episode of near syncope when walking in the infusion area. Plan to give him fluids and make adjustments to his blood pressure regimen as recommended above. IMPRESSION/REPORT/PLAN Mr. Ricardo is a pleasant 68-year old gentleman with the followin. Borderline resectable pancreatic cancer. He finished seven cycles of neoadjuvant FOLFIRINOX, and we plan to move forward with neoadjuvant radiation therapy with single-agent Xeloda. After this, I would like to give him some recovery time and then have him see Dr. Barajas for potentially resectable curative surgery. 2. Orthostasis. I would like him to discontinue the Lasix, but he would not like to do so. We could at least try to cut it in half or take it as needed. I would also like him to stop the metoprolol, but this would be my second choice. He is comfortable with stopping the metoprolol. I think this is the reason he is having his syncope episodes as these medications have become more of an issue to him now that he has lost weight. We previously reduced the metoprolol to half a dose. I answered all their may questions today. BILLING High risk, high complexity, return visit level 5. Total time 45 minutes, counseling time 25. MTDD
[2019-03-20 14:31] VITALS: BP 99/64
[2019-03-20 16:03] LABS: PLATELET COUNT, AUTOMATED 192 K/uL (150-450)
--- NOTE | 2019-03-21 19:33 | ONCOLOGY FOLLOW UP NOTE ---
EVENT DATE: March 20, 2019 CHIEF COMPLAINT Follow up for advanced pancreatic cancer. Patient has multiple questions regarding medications. HISTORY OF PRESENT ILLNESS Patient is a 68-year-old male with advanced pancreatic cancer who requested an appointment today to discuss his medications. Many of these have been prescribed by Dr. Real for his type 2 diabetes, hypertension, hyperlipidemia, and atrial fibrillation. He was recently hospitalized as he presented on 03/18/19 in our clinic with an acute episode of aphasia. CT of the head and carotid ultrasound were negative. MRI of the brain showed chronic small vessel ischemic changes. Speech today is completely normal, and patient tells me he has "done this before." He did not bring his medications with him and is unclear about many of the names and doses for them. However, he states he is "sick of taking 17 pills in the morning" and would like me to see if I can help with some changes. ONCOLOGY HISTORY Patient is a 68-year old male who presented in September 2018 with weight loss, jaundice, and acute kidney injury. CT scan showed a large pancreatic head mass measuring 5 x 4.4 x 5.5 cm with possible invasion in the duodenum that encased the SMA, GDA, mesenteric vessels, and near occlusion of the SMV. The distal common bile duct and pancreatic duct were both obstructed. He was noted to have a creatinine of 6 with evidence of adrenal insufficiency. CA19-9 was 3010. ERCP was attempted on October 04, 2018, without success. He had a biliary stent placed on October 16, 2018. Total bilirubin has decreased and normalized. He began FOLFIRINOX on 11/12/18. Dose was decreased by 25% with cycle #2 due to excessive toxicity. Completed seven cycles of FOLFIRINOX in February 2019. He will begin neoadjuvant radiation with Xeloda on 03/25/19. PAST MEDICAL HISTORY 1. Type 2 diabetes. 2. Hyperlipidemia. 3. Hypertension. 4. Obstructive sleep apnea. 5. Gout. 6. Locally advanced pancreatic cancer, September 2018. 7. Atrial fibrillation. FAMILY HISTORY Remarkable for mainly GI cancers in his family. Patient deferred genetic testing at this time. SOCIAL HISTORY Patient is . They have one grown daughter. 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 MEDICATIONS Again, patient is unclear about many of his medications. Our pharmacist has contacted his local pharmacy to review his current list, although some may be missing from this list. 1. Toujeo. 2. NovoLog. 3. Lipitor 40 mg daily. 4. Eliquis 5 mg b.i.d. 5. Metolazone 2.5 mg daily. 6. Lasix 20 mg daily. 7. Potassium 600 mg b.i.d. 8. Prozac 40 mg daily versus Cymbalta 60 mg daily, patient unclear. 9. Allopurinol 300 mg daily. 10. Vitamin D3 1000 International Units five capsules daily. 11. Magnesium oxide 400 mg daily. 12. Tramadol one to two tabs three times a day p.r.n. pain. 13. Flexeril p.r.n. muscle spasms. 14. Meloxicam 15 mg daily. 15. Omeprazole 20 mg daily. 16. Metoprolol. ALLERGIES PENICILLINS and DOXYCYCLINE. REVIEW OF SYSTEMS A 12-point review of systems is performed and is negative except as stated above. PHYSICAL EXAMINATION VITAL SIGNS: Weight 201 pounds. BP 99/64, P 81, R 16, temp 97.0, O2 sat 90%. GENERAL: Patient is a well-developed, well-nourished male in no acute distress. He is very frustrated at today's visit. HEAD: Normocephalic, atraumatic. EYES: Sclerae anicteric. MOUTH: Slightly dry mucous membranes. No lesions. NECK: Supple. No adenopathy. LUNGS: Clear bilaterally. CARDIOVASCULAR: Heart rate irregularly irregular, 80 per minute. EXTREMITIES: Chronic lower extremity swelling. NEUROLOGIC: Nonfocal. IMPRESSION The patient is a 68-year-old male who presented in September with weight loss, jaundice, and an acute kidney injury. He was then diagnosed with pancreatic cancer. CT scan showed a large pancreatic head mass measuring 5 x 4.4 x 5.5 cm with possible invasion of the duodenum that encased the superior mesenteric artery, gastroduodenal artery, mesenteric vessels, and near occlusion of the superior mesenteric vein. The common bile duct and pancreatic duct were both obstructed. Endoscopic retrograde cholangiopancreatography was attempted without success. Biliary stent was placed on 10/16/18. Completed seven cycles of FOLFIRINOX from 11/12/18 through February 2019, to begin neoadjuvant radiation with Xeloda on 03/25/19 in hopes of referral to Dr. Barajas for possible resection. PLAN 1. Pancreatic cancer. Patient will be seen on 03/22/19 for chemotherapy teaching to discuss Xeloda. He is anxious to get started on treatment. He is scheduled to begin radiation and Xeloda on 03/25/19. 2. Medications. I spent a total of 45 minutes with Andrez today reviewing his medications. Unfortunately, he did not bring his medications with him and seems confused about some of the drugs. We discussed holding his meloxicam and omeprazole. He has self-discontinued his Lasix and has decreased his potassium to 300 mg b.i.d. from 600 mg b.i.d. There has been some confusion regarding metoprolol dosing. The patient has had significant orthostatic hypotension. It has been suggested that he decrease his metoprolol from 100 mg daily to 50 mg daily. When admitted on 03/18/19 for aphasia, he was hypotensive, and the hospitalist told him to discontinue the metoprolol. However, Dr. Real would prefer he stay on metoprolol 100 mg daily. Andrez is determined not to discontinue his metolazone, although he has discontinued his Lasix. He states he has been on metolazone and Lasix for "12 years." I will review all of this with Dr. Real, and I have encouraged him to follow up with her for continued care. Will consider discontinuing the magnesium oxide as today's magnesium was close to normal at 1.6. 3. Follow up on 03/22/19 for chemotherapy teaching. I have asked him to make sure to bring his medications with him, and we will review this further. cc: Jessie Real MD [facility] CENTERChristophe
--- NOTE | 2019-03-22 17:16 | ONCOLOGY CHEMO TEACHING ---
EVENT DATE: March 22, 2019 DIAGNOSIS Advanced pancreatic cancer. The patient and his are seen today for chemotherapy teaching. A total of 60 minutes was spent with them, 100% of which was [id number] counseling. HISTORY OF PRESENT ILLNESS Patient is a 68-year-old male with advanced pancreatic cancer, who is seen today to discuss upcoming treatment with concurrent chemoradiation with Xeloda. This will begin on 03/25/19. 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 He does have much sick leave and vacation leave available, so we remain hopeful that this will cover the time of his treatment. Today, he presents and has had no issues with orthostasis or dizziness. He has self-adjusted some of his medications, and I have asked him to hold several others that may have been contributing to his hypotension. Otherwise, he feels ready to begin treatment. ONCOLOGY HISTORY Patient is a 68-year old male who presented in September 2018 with weight loss, jaundice, and acute kidney injury. CT scan showed a large pancreatic head mass measuring 5 x 4.4 x 5.5 cm with possible invasion in the duodenum that encased the SMA, GDA, mesenteric vessels, and near occlusion of the SMV. The distal common bile duct and pancreatic duct were both obstructed. He was noted to have a creatinine of 6 with evidence of adrenal insufficiency. CA19-9 was 3010. ERCP was attempted on October 04, 2018, without success. He had a biliary stent placed on October 16, 2018. Total bilirubin has decreased and normalized. He began FOLFIRINOX on 11/12/18. Dose was decreased by 25% with cycle #2 due to excessive toxicity. Completed seven cycles of FOLFIRINOX in February 2019. He will begin neoadjuvant radiation with Xeloda on 03/25/19. PAST MEDICAL HISTORY 1. Type 2 diabetes. 2. Hyperlipidemia. 3. Hypertension. 4. Obstructive sleep apnea. 5. Gout. 6. Locally advanced pancreatic cancer, September 2018. 7. Atrial fibrillation. FAMILY HISTORY Remarkable for mainly GI cancers in his family. Patient deferred genetic testing at this time. SOCIAL HISTORY Patient is . They have one grown daughter. 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 MEDICATIONS Again, patient is unclear about many of his medications. Our pharmacist has contacted his local pharmacy to review his current list, although some may be missing from this list. 1. Toujeo. 2. NovoLog. 3. Lipitor 40 mg daily. 4. Eliquis 5 mg b.i.d. 5. Metolazone 2.5 mg daily. 6. Lasix 20 mg daily (patient has held this). 7. Potassium 10 mEq three p.o. b.i.d. 8. Cymbalta 60 mg daily. 9. Allopurinol 300 mg daily. 10. Vitamin D3 1000 International Units five capsules daily. 11. Magnesium oxide 400 mg daily. 12. Tramadol one to two tabs three times a day p.r.n. pain. 13. Flexeril p.r.n. muscle spasms. 14. Meloxicam 15 mg daily (on hold). 15. Omeprazole 20 mg daily (on hold). 16. Metoprolol (patient has self-discontinued per hospitalist advice). 17. Cyclobenzaprine 5 mg two q. day to two b.i.d. ALLERGIES PENICILLIN and DOXYCYCLINE. DISCUSSION 1. A total of 60 minutes was spent in counseling today, 100% of which was face to face. At today's chemotherapy teaching visit, we reviewed his upcoming treatment with concurrent chemoradiation with Xeloda. Handouts of this drug were provided and reviewed in detail. 2. Side effects and toxicities of chemotherapy agents included, but were not limited to: A. Bone marrow suppression, specifically neutropenia. He is instructed to contact our offices with any signs of infection. CBC will be monitored routinely. We discussed common sense approaches including routine hand washing and avoidance of crowds/sick people if neutropenic. B. GI side effects. Discussed the possibility of diarrhea. If he were to have diarrhea, recommended Imodium. I have asked him to call us if this is persistent as dose of Xeloda may need to be reduced. C. side effects. Discussed the importance of adequate hydration (minimum 8 cups of fluid per day) and emptying the bladder on a regular basis. IV hydration can be scheduled as needed. D. Mouth sores. Recommended salt water or baking soda gargles as needed. E. Skin toxicity. We reviewed the signs and symptoms of hand-foot syndrome. I have recommended moisturizing routinely and notifying us if this occurs so that dose can be adjusted. I have asked him to monitor the soles of his feet as well as hands. F. Fatigue. Discussed that this is one of the most common complaints of patients undergoing chemotherapy. I have encouraged him to remain as active as possible, taking frequent rests as needed. 3. I have instructed the patient to call our office if he is prescribed any new medications. It is recommended that multiple supplements or herbal medications may not be taken as these may interfere with the action of the chemotherapy. 4. Discussed dietary issues associated with chemotherapy including anorexia and changes in taste. 5. Office contact information ([phone]) is given. I have encouraged the patient to call with any issues regarding treatment. 6. Patient will begin radiation on 03/25/19. He understands that his capecitabine dose will be 1600 mg b.i.d. (two 500 mg tablets and four 150 mg tablets b.i.d.). He states understanding and has written instructions. We will continue close followup. He will be seen on 03/29/19 with a CBC and CMP to evaluate for toxicity. MTDD
[2019-03-28 12:02] VITALS: BP 100/58
--- NOTE | 2019-03-29 00:46 | ONCOLOGY FOLLOW UP NOTE ---
EVENT DATE: March 28, 2019 CHIEF COMPLAINT Followup for advanced pancreatic cancer. HISTORY OF PRESENT ILLNESS Patient is a 68-year-old male who was seen today as a work-in. He began neoadjuvant radiation to the pancreas on 03/25/19 and then began Xeloda on 03/26/19. He presents today and had recent complaint of erythema to both palms with pruritus. It has now resolved, but he was concerned that this was an allergic reaction to the Xeloda. He also had slightly loose stools yesterday, but this has also resolved. He complains of chronic neuropathy to the last three fingers on each hand. He remains very discouraged, as he was told by his work that he would need to take FMLA. He does have sick and vacation time available; however, he would like to go back to work. We mutually agreed that he would continue with radiation and Xeloda for one to two weeks before a decision was made about work. He continues with chronic lower back pain. He has had minimal dizziness but is careful to go from seated to standing slowly. ONCOLOGY HISTORY Patient is a 68-year old male who presented in September 2018 with weight loss, jaundice, and acute kidney injury. CT scan showed a large pancreatic head mass measuring 5 x 4.4 x 5.5 cm with possible invasion in the duodenum that encased the SMA, GDA, mesenteric vessels, and near occlusion of the SMV. The distal common bile duct and pancreatic duct were both obstructed. He was noted to have a creatinine of 6 with evidence of adrenal insufficiency. CA19-9 was 3010. ERCP was attempted on October 04, 2018, without success. He had a biliary stent placed on October 16, 2018. Total bilirubin has decreased and normalized. He began FOLFIRINOX on 11/12/18. Dose was decreased by 25% with cycle #2 due to excessive toxicity. Completed seven cycles of FOLFIRINOX in February 2019. Began neoadjuvant radiation to the pancreas on 03/25/19. Xeloda added on 03/26/19. PAST MEDICAL HISTORY 1. Type 2 diabetes. 2. Hyperlipidemia. 3. Hypertension. 4. Obstructive sleep apnea. 5. Gout. 6. Locally advanced pancreatic cancer, September 2018. 7. Atrial fibrillation. FAMILY HISTORY Remarkable for mainly GI cancers in his family. Patient deferred genetic testing at this time. SOCIAL HISTORY Patient is . They have one grown daughter. He works in [employer] at [employer]. 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 MEDICATIONS 1. Toujeo. 2. NovoLog. 3. Lipitor 40 mg daily. 4. Eliquis 5 mg b.i.d. 5. Metolazone 2.5 mg daily. 6. Lasix 20 mg daily (patient has held this). 7. Potassium 10 mEq three p.o. b.i.d. 8. Cymbalta 60 mg daily. 9. Allopurinol 300 mg daily. 10. Vitamin D3 1000 International Units five capsules daily. 11. Magnesium oxide 400 mg daily. 12. Tramadol one to two tabs three times a day p.r.n. pain. 13. Flexeril p.r.n. muscle spasms. 14. Meloxicam 15 mg daily (on hold). 15. Omeprazole 20 mg daily (on hold). 16. Metoprolol (patient has self-discontinued per hospitalist advice). 17. Cyclobenzaprine 5 mg two q. day to two b.i.d. ALLERGIES PENICILLIN and DOXYCYCLINE. REVIEW OF SYSTEMS A 12-point review of systems is performed and is negative except as stated above. PHYSICAL EXAMINATION VITAL SIGNS: BP 100/58, P 99, R 16, temp 96.8, O2 sat 96%. GENERAL: Patient is a well-developed but fatigued-appearing male in no acute distress. He is very discouraged. HEAD: Normocephalic, atraumatic. EYES: Sclerae anicteric. MOUTH: Slightly dry mucous membranes. No mucositis. LUNGS: Clear bilaterally. CARDIOVASCULAR: Heart rate regular, 99 per minute. EXTREMITIES: Trace pretibial edema bilaterally, overall improved. Patient moves very slowly in the exam room due to his chronic back pain. NEURO: Nonfocal. IMPRESSION The patient is a 68-year-old male who presented in September 2018 with weight loss, jaundice, and an acute kidney injury. He was then diagnosed with pancreatic cancer. CT scan showed a large pancreatic head mass measuring 5 x 4.4 x 5.5 cm with possible invasion of the duodenum that encased the superior mesenteric artery, gastroduodenal ulcer, mesenteric vessels, and near occlusion of the superior mesenteric vein. The common bile duct and pancreatic duct were both obstructed. ERCP was attempted without success. Biliary stent was placed on . Completed seven cycles of FOLFIRINOX from 11/12/18 through February 2019. Began neoadjuvant radiation on 03/25/19 with Xeloda added on 03/26/19. 1. Pancreatic cancer. Patient will continue Xeloda as well as daily radiation. He understands the Xeloda is to continue at 1600 mg b.i.d. Monday through Monday. He believes he is tolerating it fairly well. Again, when asked, he remains somewhat confused about which day he started the medication and how many doses he has taken, but he feels he is managing this well. 2. Derm. Complained of some pruritic erythema to both palms. He was concerned that this was actually an allergic reaction to the Xeloda as opposed to hand/foot surgery. This has now resolved. I have reassured him, and we will monitor closely. 3. Gastrointestinal. Two episodes of diarrhea yesterday. He understands that Xeloda can cause diarrhea, and he will monitor this. 4. Followup for daily radiation and again in one week for continued care. [facility]
[2019-03-29 11:00] LABS: PLATELET COUNT, AUTOMATED 197 K/uL (150-450)
--- NOTE | 2019-04-01 12:32 | NUR ---
Nurse contacted [facility] pharmacy and renewed patients potassium tablets and his tramadol.
[2019-04-02 11:41] VITALS: BP 96/52
[2019-04-02] MEDS: LIDOCAINE/SOD BICARB 8.4% SYR ID PRN (11:41)
[2019-04-02 11:47] LABS: PLATELET COUNT, AUTOMATED 181 K/uL (150-450)
[2019-04-02] MEDS: HEPARIN FLSH (PORT) 500 UN/5ML IVP PRN (11:53)
--- NOTE | 2019-04-02 13:27 | ONCOLOGY FOLLOW UP NOTE ---
EVENT DATE: April 02, 2019 CHIEF COMPLAINT Followup for advanced pancreatic cancer. HISTORY OF PRESENT ILLNESS Patient is a 68-year old male who is seen today in followup. He began Xeloda one week ago. He initially thought he was having an allergic reaction as he developed some pruritus but this resolved. He is tolerating it fairly well. He has had two to three loose/diarrhea stools a day but has not needed to take Imodium. He is now off work on FMLA and has noted more fatigue but is discouraged about the fact that he is not able to work. Chronic back pain is under control with Tramadol, Cymbalta and cyclobenzaprine. He is tolerating his radiation without issue. ONCOLOGY HISTORY Patient is a 68-year old male who presented in September 2018 with weight loss, jaundice, and acute kidney injury. CT scan showed a large pancreatic head mass measuring 5 x 4.4 x 5.5 cm with possible invasion in the duodenum that encased the SMA, GDA, mesenteric vessels, and near occlusion of the SMV. The distal common bile duct and pancreatic duct were both obstructed. He was noted to have a creatinine of 6 with evidence of adrenal insufficiency. CA19-9 was 3010. ERCP was attempted on October 04, 2018, without success. He had a biliary stent placed on October 16, 2018. Total bilirubin has decreased and normalized. He began FOLFIRINOX on 11/12/18. Dose was decreased by 25% with cycle #2 due to excessive toxicity. Completed seven cycles of FOLFIRINOX in February 2019. Began neoadjuvant radiation to the pancreas on 03/25/19. Xeloda added on 03/26/19. PAST MEDICAL HISTORY 1. Type 2 diabetes. 2. Hyperlipidemia. 3. Hypertension. 4. Obstructive sleep apnea. 5. Gout. 6. Locally advanced pancreatic cancer, September 2018. 7. Atrial fibrillation. FAMILY HISTORY Remarkable for mainly GI cancers in his family. Patient deferred genetic testing at this time. SOCIAL HISTORY Patient is . They have one grown daughter. 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 MEDICATIONS 1. Toujeo. 2. NovoLog. 3. Lipitor 40 mg daily. 4. Eliquis 5 mg b.i.d. 5. Metolazone 2.5 mg daily. 6. Lasix 20 mg daily (patient has held this). 7. Potassium 10 mEq three p.o. b.i.d. 8. Cymbalta 60 mg daily. 9. Allopurinol 300 mg daily. 10. Vitamin D3 1000 International Units five capsules daily. 11. Magnesium oxide 400 mg daily. 12. Tramadol one to two tabs three times a day p.r.n. pain. 13. Flexeril p.r.n. muscle spasms. 14. Meloxicam 15 mg daily (on hold). 15. Omeprazole 20 mg daily (on hold). 16. Metoprolol (patient has self-discontinued per hospitalist advice). 17. Cyclobenzaprine 5 mg two q. day to two b.i.d. ALLERGIES PENICILLIN and DOXYCYCLINE. REVIEW OF SYSTEMS A 12-point review of systems is performed and is negative except as stated above. PHYSICAL EXAMINATION VITAL SIGNS: BP 96/52, P 92, R 16, temp 97.4, O2 sat 96%. GENERAL: Patient is a well-developed, well-nourished male in no acute distress. He is moving easily in the exam room today. HEAD: Normocephalic, atraumatic. EYES: Sclerae anicteric. MOUTH: Slightly dry mucous membranes but no lesions. NECK: Supple. No palpable adenopathy. LUNGS: Clear bilaterally. CARDIOVASCULAR: Heart rate regular, 92 per minute without murmur. EXTREMITIES: Trace to 1+ pretibial edema, markedly improved. NEURO: Nonfocal. LABS CBC today reveals WBC of 4.0, ANC 3.2, hemoglobin 11.6, hematocrit 35.6, platelets 181,000. CMP shows potassium 3.4, sodium 134, BUN and creatinine 26 and 1.3 respectively. Random glucose 318. Magnesium 1.3. IMPRESSION The patient is a 68-year-old male who presented in September 2018 with weight loss, jaundice, and an acute kidney injury. He was then diagnosed with pancreatic cancer. CT scan showed a large pancreatic head mass measuring 5 x 4.4 x 5.5 cm with possible invasion of the duodenum that encased the superior mesenteric artery, gastroduodenal ulcer, mesenteric vessels, and near occlusion of the superior mesenteric vein. The common bile duct and pancreatic duct were both obstructed. ERCP was attempted without success. Biliary stent was placed on . Completed seven cycles of FOLFIRINOX from 11/12/18 through February 2019. Began neoadjuvant radiation on 03/25/19 with Xeloda added on 03/26/19. PLAN 1. Pancreatic cancer. Continue Xeloda Monday through Monday as well as daily radiation. He is tolerating both modalities without significant issues. 2. Gastrointestinal. Two to three loose/diarrhea stools a day. I have asked him to monitor this as he may require a dose reduction. He is instructed again on the use of Imodium. 3. Xeloda. Reviewed when to take his medication. He had been taking this before meals and I recommended he take it immediately after eating. 4. Pain. Back pain is fairly well controlled on Tramadol, Cymbalta and cyclobenzaprine. 5. Hypomagnesemia. Magnesium today is 1.3. He continues on magnesium oxide 400 mg daily. We will increase this to 400 mg b.i.d. We may need to consider magnesium sulfate IV if diarrhea proves significant. 6. Follow up in one week for continued care. CBC, CMP and magnesium will be drawn at that time. MTDD
[2019-04-03 11:09] VITALS: BP 115/70
--- NOTE | 2019-04-03 13:58 | ONCOLOGY FOLLOW UP NOTE ---
EVENT DATE: April 03, 2019 Patient presented to the clinic today after falling at home. He was alert and oriented x3 and denied significant headache. He has a laceration on the right lateral scalp as well as over the right eyebrow. This area is swollen and slightly bruising. We spent some time discussing his issues with orthostatic hypotension and I will attempt to contact Dr. Real to see if any medication changes can be made. His and daughter are now helping him with his medications, which I hope will be helpful for Andrez. VS today: BP 115/70, P 96, R 18, T 96.9, O2 sat 94%. It is recommended that patient go to the emergency room. I spoke with Moncho, nurse practitioner in the emergency room, who will evaluate and treat him. Andrez will be seen in followup for daily radiation. GAMALIEL
--- NOTE | 2019-04-03 19:52 | ONCOLOGY FOLLOW UP NOTE ---
EVENT DATE: April 03, 2019 I spoke with Mr. Ricardo after he was seen in the Emergency Room. CT of the head was negative. X-ray of the right shoulder showed a nondisplaced acromion fracture. Chest x-ray was negative, although patient believes he may have fractured or displaced one of his ribs. He has had long-standing issues with orthostatic hypotension, felt to be the cause of his fall today. I also discussed his case with Dr. Real. At this time, we mutually agreed to decrease his metolazone to 2.5 mg two times a week (q. Monday and Monday). Andrez is no longer taking furosemide, and swelling has actually improved. Will continue to monitor, and he will be seen daily for radiation. GAMALIEL
[2019-04-08] MEDS: LIDOCAINE/SOD BICARB 8.4% SYR ID PRN (12:20)
[2019-04-08] MEDS: HEPARIN FLSH (PORT) 500 UN/5ML IVP PRN (12:20)
[2019-04-08 12:25] VITALS: BP 97/57
[2019-04-08 12:59] LABS: PLATELET COUNT, AUTOMATED 193 K/uL (150-450)
[2019-04-10 12:44] VITALS: BP 86/58
--- NOTE | 2019-04-10 20:28 | ONCOLOGY FOLLOW UP NOTE ---
EVENT DATE: April 10, 2019 CHIEF COMPLAINT Followup for advanced pancreatic cancer. HISTORY OF PRESENT ILLNESS Patient is a 68-year-old male who was seen today in followup. He continues on daily radiation, which he is tolerating fairly well. He is also on Xeloda 1600 mg q.12 hours and is not having significant toxicity from this. His biggest issue is that of long-standing chronic back pain. He has been on tramadol, but when he saw Dr. Soler yesterday, he was transitioned to oxycodone. Today, he presents and seems to be somewhat sedated and has not noted much of a difference in his pain at this point. He has also been referred to Physical Therapy. Dr. Soler discussed starting his pancreatic enzymes as he is still having loose stools. He continues with some dizziness, but this may be improved now that Lasix has been discontinued, and he is only on metolazone two days per week. ONCOLOGY HISTORY Patient is a 68-year old male who presented in September 2018 with weight loss, jaundice, and acute kidney injury. CT scan showed a large pancreatic head mass measuring 5 x 4.4 x 5.5 cm with possible invasion in the duodenum that encased the SMA, GDA, mesenteric vessels, and near occlusion of the SMV. The distal common bile duct and pancreatic duct were both obstructed. He was noted to have a creatinine of 6 with evidence of adrenal insufficiency. CA19-9 was 3010. ERCP was attempted on October 04, 2018, without success. He had a biliary stent placed on October 16, 2018. Total bilirubin has decreased and normalized. He began FOLFIRINOX on 11/12/18. Dose was decreased by 25% with cycle #2 due to excessive toxicity. Completed seven cycles of FOLFIRINOX in February 2019. Began neoadjuvant radiation to the pancreas on 03/25/19. Xeloda added on 03/26/19. PAST MEDICAL HISTORY 1. Type 2 diabetes. 2. Hyperlipidemia. 3. Hypertension. 4. Obstructive sleep apnea. 5. Gout. 6. Locally advanced pancreatic cancer, September 2018. 7. Atrial fibrillation. FAMILY HISTORY Remarkable for mainly GI cancers in his family. Patient deferred genetic testing at this time. SOCIAL HISTORY Patient is . They have one grown daughter. 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 MEDICATIONS 1. Toujeo. 2. NovoLog. 3. Lipitor 40 mg daily. 4. Eliquis 5 mg twice a day. 5. Metolazone 2.5 mg every Monday and Monday. 6. Potassium 10 mEq three tabs twice a day. 7. Cymbalta 60 mg daily. 8. Allopurinol 300 mg daily. 9. Vitamin D3 5000 International Units daily. 10. Magnesium oxide 400 mg twice a day. 11. Cyclobenzaprine 5 mg twice a day. 12. Oxycodone 10 mg one to two q.4 hours p.r.n. pain. 13. Xeloda 1600 mg twice a day Monday through Monday during radiation. 14. Pancreatic enzymes. ALLERGIES PENICILLIN and DOXYCYCLINE. REVIEW OF SYSTEMS A 12-point review of systems is performed and is negative except as stated above. PHYSICAL EXAMINATION VITAL SIGNS: Blood pressure 86/58, pulse 96, R 14, temp 97.2, O2 sat 96%. GENERAL: Patient is a well-developed, well-nourished male in no acute distress. Affect is slightly flat. HEAD: Normocephalic, atraumatic. EYES: Sclerae anicteric. MOUTH: Slightly dry mucous membranes. No lesions. NECK: Supple. No palpable adenopathy. LUNGS: Clear bilaterally. CARDIOVASCULAR: Heart rate regular, 96 per minute. EXTREMITIES: Trace pretibial edema bilaterally. NEUROLOGIC: Nonfocal. LABORATORIES CBC today reveals WBC of 5.4, hemoglobin 12.0, hematocrit 34.2, platelets 193,000. CMP is within normal limits except for a slightly low patient of 3.4. BUN is 26. Random glucose 319. Magnesium 1.4. CA19-9 has decreased to 380. IMPRESSION The patient is a 68-year-old male who presented in September 2018 with weight loss, jaundice, and an acute kidney injury. He was then diagnosed with pancreatic cancer. CT scan showed a large pancreatic head mass measuring 5 x 4.4 x 5.5 cm with possible invasion of the duodenum that encased the superior mesenteric artery, gastroduodenal ulcer, mesenteric vessels, and near occlusion of the superior mesenteric vein. The common bile duct and pancreatic duct were both obstructed. Endoscopic retrograde cholangiopancreatography was attempted without success. Biliary stent was placed on . Completed seven cycles of FOLFIRINOX from 11/12/18 through February 2019. Began neoadjuvant radiation on 03/25/19 with Xeloda added on 03/26/19. PLAN 1. Pancreatic cancer. Continue Xeloda Monday through Monday as well as daily radiation. He feels he is tolerating both without much problem. 2. GI. Continues with slightly loose stools. Dr. Soler wanted him to restart his pancreatic enzymes. Will continue to monitor as Xeloda dose may need to be decreased. 3. Pain. Pain was not well controlled on tramadol, Cymbalta, and cyclobenzaprine. Tramadol was discontinued, and Dr. Soler prescribed oxycodone 10 mg one to two q.4 hours p.r.n. pain. He took one this morning and is somewhat sedated. I have asked him to monitor this carefully and consider taking half a pill. 4. Hypomagnesemia. Magnesium is improved to 1.4. He will continue magnesium oxide 400 mg twice a day. He may require IV magnesium sulfate as the magnesium oxide can worsen his diarrhea. 5. Hypokalemia. This has been an issue, but potassium today is stable at 3.4. He continues KCl 30 mEq twice a day. 6. Follow up weekly for continued care. CBC, CMP, and magnesium will be drawn at that time. He will see Dr. Evans in followup on 05/20/19. GAMALIEL
--- NOTE | 2019-04-15 13:00 | NUR ---
SW completed letter for pt from Dr. Soler to support his ability to work.
[~2019-04-16] VITALS: Ht 174.6 cm; Wt 89.7 kg
[~2019-04-16 11:45] MED LIST changes: +ALTEPLASE RECOMB 2 MG VIAL IVP PRN; +D5W IV ONE; +D5W IVPB ONE; +DEXAMETHASONE SOD PHOS 10MG/ML IVP ONE; +DEXAMETHASONE SOD PHOS 10MG/ML IVP PRN; +FLUOROURACIL 50 MG/ML SDV IVP ONE; +FLUOROURACIL IV ONE; +IRINOTECAN HCL IVPB ONE; +KCL 2 MEQ/ML 20 MEQ/10 ML VIAL 30 MEQ in NS(*) 0.9% 1000 ML BAG 1,000 ML IV ONE; +KCL/NS* 20 MEQ/1000 ML PREMIX 1,000 ML IV ONE; +LEUCOVORIN CAL IV ONE; +MAGNESIUM SUL IVPB ONE; +MAGNESIUM SUL* 2 GM/50 ML IVPB 50 ML IVPB ONE; +NS 0.9% IV ONE; +NS 0.9% IVPB ONE; +NS(*) 0.9% 100 ML BAG 100 ML IVPB PRN; +NS(*) 0.9% 1000 ML BAG 1,000 ML IV ONE; +NS(*) 0.9% 250 ML BAG 250 ML IVPB PRN; +OXALIPLATIN IVPB ONE; +PALONOSETRON 0.25 MG/5 ML VIAL IVP ONE; +PALONOSETRON 0.25 MG/5 ML VIAL IVP PRN; +WATER FOR INJ,STERILE 20 ML IVP PRN; +[UNRECOGNIZED DRUG - OTHER] IVPB ONE; +[UNRECOGNIZED DRUG - OTHER] IVPB ONE; +[UNRECOGNIZED DRUG - OTHER] IVPB ONE
[2019-04-16] MEDS: LIDOCAINE/SOD BICARB 8.4% SYR ID PRN (13:00)
[2019-04-16] MEDS: HEPARIN FLSH (PORT) 500 UN/5ML IVP PRN (13:00)
[2019-04-16 13:16] LABS: PLATELET COUNT, AUTOMATED 213 K/uL (150-450)
[2019-04-16 15:00] VITALS: BP 107/67
[2019-04-22] MEDS ORDERED: MAGNESIUM SUL* 2 GM/50 ML IVPB 50 ML IVPB ONE (14:10)
[2019-04-22] MEDS ORDERED: FLUD0.1T12 PO (16:41)
--- NOTE | 2019-04-22 17:26 | RADIOLOGY IMAGING REPORT ---
FACILITY: [facility] [place] PATIENT NAME: Myles Ricardo : 1950 MR: [id number] V: [id number] EXAM DATE: ORDERING PHYSICIAN: NICOLE PATTERSON TECHNOLOGIST: [place] [facility] [place] Myles Ric[place] : 1950 Visit/Account:[id number] Date of Sevice: 04/22/2019 Exam type: FLUOROSCOPY History: No blood return from [facility] Comparison: None. Findings: Approximately 5 mL of Isovue 370 was injected through the patient's implanted right-sided port. The contrast flowed freely from the distal tip into the superior vena cava and right atrium. The dose ar ea product was 22.23 micro-Delgado per meter squared IMPRESSION: 1. Implanted right-sided port appears patent Report Dictated By: Camelia Lara MD at 04/22/2019 5:19 PM Report E-Signed By: Camelia Lara MD at 04/22/2019 5:20 PM WSN:[id number]
--- NOTE | 2019-04-23 09:52 | [facility] ONCOLOGY NOTE ---
EVENT DATE: April 22, 2019 CHIEF COMPLAINT/REASON FOR VISIT Mr. Ricardo is a very pleasant 68-year-old gentleman with borderline resectable pancreatic cancer, currently receiving the second phase of therapy with radiation and chemotherapy concurrent with Xeloda. HISTORY OF PRESENT ILLNESS Mr. Ricardo returns. He is tolerating chemo/RT well with the exception of orthostatic hypotension. We have backed off on his Lasix as well as his metolazone. I believe that Florinef would be an excellent consideration and we discussed this today with plans to start it. His blood pressure drops from 96/61 with lying flat to 83/37 seated and 83/37 at standing with an increase in the pulse rate as well. Other than this issue, he is doing well. He did accidentally take the Xeloda over the weekend the first weekend but now understands he is only supposed to take it on days of radiation. He has approximately ten days of radiation therapy left and then we will proceed with recovery, imaging and hopeful curative intent surgery. Family meeting today. ONCOLOGY HISTORY Patient is a 68-year-old male who presented in September 2018 with weight loss, jaundice, and acute kidney injury. CT scan showed a large pancreatic head mass measuring 5 x 4.4 x 5.5 cm with possible invasion in the duodenum that encased the SMA, GDA, and mesenteric vessels, and near occlusion of the SMV. The distal common bile duct and pancreatic duct were both obstructed. He was noted to have a creatinine of 6 with evidence of adrenal insufficiency. CA19-9 was 3,010. ERCP was attempted on October 04, 2018, without success. He had a biliary stent placed on October 16, 2018. Total bilirubin has decreased and normalized. He began FOLFIRINOX on November 12, 2018. Dose was decreased by 25% with Cycle #2 due to excessive toxicity. Therefore, a total bone scan was ordered. Bone scan was done on January 17, 2019, and revealed uptake at the L2 and L4 vertebral bodies, but did not reveal any lytic lesions consistent with metastatic disease. Also, there was some uptake shown at the left 11th rib, which corresponded to a healing fracture. PAST MEDICAL HISTORY 1. Type 2 diabetes. 2. Hyperlipidemia. 3. Hypertension. 4. Obstructive sleep apnea. 5. Gout. 6. Locally advanced pancreatic cancer, September 2018. 7. Atrial fibrillation. SOCIAL HISTORY Patient is . They have one grown daughter. 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 REVIEW OF SYSTEMS CONSTITUTIONAL: No fevers, chills, or significant weight change. HEENT: No headache or vision changes. CARDIOVASCULAR: No chest pain or dyspnea on exertion. Positive edema in the legs. RESPIRATORY: No shortness of breath, wheeze, or cough. GASTROINTESTINAL: No nausea or vomiting. NEUROLOGIC: Occasional short-term memory loss, but is mild. GENITOURINARY: No dysuria or hematuria. MUSCULOSKELETAL: No weakness or joint pain. He does have significant back pain due to known compression fractures. PSYCHIATRIC: No anxiety or depression. High stress. VASCULAR: Patient has episodes of presyncope and syncope, likely related to the weight loss and overmedication. Please see the HPI. PHYSICAL EXAMINATION VITAL SIGNS: Blood pressure: See above. Pulse 104, respiratory rate 16, temperature 97.4 Fahrenheit, oxygen saturation 98% on room air. GENERAL: Stable condition, resting comfortably in the chair. ECOG Performance Status of 1 at baseline; does increase to 2 at times with his chemoradiation therapy but he is overall improving in between treatments. Most of physical exam deferred today to amount of time spent in counseling and coordination of care as the patient was heading to and from radiation therapy and infusion as well. IMPRESSION/REPORT/PLAN Mr. Ricardo is a very pleasant gentleman with the followin. Borderline resectable pancreatic cancer. We are in the second phase of therapy with concurrent chemoradiation therapy utilizing Xeloda. Overall, he is tolerating it well. However, he does have significant orthostasis. We plan to consider Florinef after we have already backed off on his Lasix and metolazone. He has suffered a fall from dizziness and lightheadedness with standing. He had injury to the ribs as well with chiropractic work some time ago and has a free- floating right rib. He has lost over 100 pounds of weight since his initial diagnosis. 2. We had a family meeting. Discussed how we planned to finish the next ten days of radiation therapy with Xeloda. Xeloda is only to occur on days of his radiation. They expressed understanding with this. After that time, we will allow recovery and then imaging in [place] with Dr. Barajas and, hopefully, curative intent surgery after that time. I answered all of their questions today. BILLING Return visit, level 4. Total time 30 minutes, counseling time 20. MTDD
== END 2019-04-21 ==
LOC: SPU 11:45
PROVIDERS: ATTEND Internal Medicine
DX: Z51.11 Encounter for antineoplastic chemotherapy (principal); C25.9 Malignant neoplasm of pancreas, unspecified; E87.6 Hypokalemia; E83.42 Hypomagnesemia; M54.9 Dorsalgia, unspecified; K59.00 Constipation, unspecified; F32.9 Major depressive disorder, single episode, unspecified; E11.65 Type 2 diabetes mellitus with hyperglycemia; Z79.899 Other long term (current) drug therapy
CPT/HCPCS: 36415; 36591; 83735; 84100; 85025; 85027; 86301; 96360; 96361; 96365; 96366; 96367; 96368; 96375; 96411; 96413; 96415; 96416; 96417; 99211; 99212; J0640; J1100; J1642; J2469; J3475; J3480; J7030; J7050; J7060; J9190; J9206; J9263; 76000; 82040; 82247; 82310; 82374; 82435; 82565; 82947; 84075; 84132; 84155; 84295; 84450; 84460; 84520

== ENCOUNTER → 2019-04-25 | Outpatient (CLI) | payer OTHER ==
[~2019-04-25] MED LIST changes: -ALTEPLASE RECOMB 2 MG VIAL IVP PRN; -D5W IV ONE; -D5W IVPB ONE; -DEXAMETHASONE SOD PHOS 10MG/ML IVP ONE; -DEXAMETHASONE SOD PHOS 10MG/ML IVP PRN; +FLUD0.1T12 PO; -FLUOROURACIL 50 MG/ML SDV IVP ONE; -FLUOROURACIL IV ONE; -IRINOTECAN HCL IVPB ONE; -KCL 2 MEQ/ML 20 MEQ/10 ML VIAL 30 MEQ in NS(*) 0.9% 1000 ML BAG 1,000 ML IV ONE; -KCL/NS* 20 MEQ/1000 ML PREMIX 1,000 ML IV ONE; -LEUCOVORIN CAL IV ONE; -MAGNESIUM SUL IVPB ONE; -MAGNESIUM SUL* 2 GM/50 ML IVPB 50 ML IVPB ONE; -NS 0.9% IV ONE; -NS 0.9% IVPB ONE; -NS(*) 0.9% 100 ML BAG 100 ML IVPB PRN; -NS(*) 0.9% 1000 ML BAG 1,000 ML IV ONE; -NS(*) 0.9% 250 ML BAG 250 ML IVPB PRN; -OXALIPLATIN IVPB ONE; -PALONOSETRON 0.25 MG/5 ML VIAL IVP ONE; -PALONOSETRON 0.25 MG/5 ML VIAL IVP PRN; -WATER FOR INJ,STERILE 20 ML IVP PRN; -[UNRECOGNIZED DRUG - OTHER] IVPB ONE; -[UNRECOGNIZED DRUG - OTHER] IVPB ONE; -[UNRECOGNIZED DRUG - OTHER] IVPB ONE
== END ==
LOC: LAB 11:52
PROVIDERS: ATTEND Emergency Medicine
DX: E78.5 Hyperlipidemia, unspecified (principal); E11.9 Type 2 diabetes mellitus without complications; E55.9 Vitamin D deficiency, unspecified
CPT/HCPCS: 36415; 82306; 82465; 83036; 83718; 84478

== ENCOUNTER 2019-05-06 11:30 | Outpatient (RCR) | payer OTHER ==
[2019-02-28 08:27] VITALS: BP 102/60
--- NOTE | 2019-02-28 11:19 | PURVIANCE CONSULTATION ---
EVENT DATE: February 28, 2019 DIAGNOSIS Borderline resectable pancreatic adenocarcinoma. CHIEF COMPLAINT Discussion of neoadjuvant chemoradiation therapy. HISTORY OF PRESENT ILLNESS Patient is a 68-year old gentleman who presented in September 2019 with weight loss, jaundice and acute kidney renal insufficiency. As part of that workup, a CT scan showed a large pancreatic mass measuring 5 x 4.4 x 5.5 cm with possible invasion into the duodenum. The pancreatic mass encased the SMA, GDA and mesenteric vessels with near occlusion of the SMV. The distal common bile duct and pancreatic duct were both obstructed. The patient was noted to have a CA19.9 of 3,010. ERCP was attempted on October 04, 2019, without successful decompression of his biliary system. The patient did undergo biliary stent on October 16, 2018. The patient was seen by Dr. Evans from Medical Oncology and underwent workup with a dedicated CT scan of the abdomen and pelvis, which showed no evidence of liver metastasis. The patient has met with Dr. Barajas from surgery, who feels that the patient has a borderline resectable lesion. The patient has proceeded with neoadjuvant chemotherapy with FOLFIRINOX starting on November 12, 2018. The patient has completed at least six cycles of FOLFIRINOX to date. The patient has been to Radiation Oncology for discussion of neoadjuvant chemoradiation therapy for his borderline resectable pancreatic adenocarcinoma. On presentation today, patient overall feels well. He does have back pain and has had multiple compression fractures in his lumbar spine. He has undergone extensive workup with this area with imaging suggesting that these compression fractures are nonmalignant. The patient has had some diarrhea with treatment of FOLFIRINOX. He denies significant nausea or early satiety. PAST MEDICAL HISTORY 1. Type 2 diabetes. 2. Hyperlipidemia. 3. Hypertension. 4. Obstructive sleep apnea. 5. Gout. 6. Locally advanced pancreatic adenocarcinoma, diagnosed 2018. 7. Atrial fibrillation. MEDICATIONS 1. Omeprazole. 2. Insulin. 3. Fluoxetine. 4. Allopurinol. 5. Furosemide. 6. Potassium Chloride. 7. Dicyclomine. 8. Loperamide. 9. Calciferol. FAMILY HISTORY Remarkable for mainly GI cancer in his family. SOCIAL HISTORY Patient is . 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 No significant alcohol or drug use. ALLERGIES Penicillin and Doxycycline. PHYSICAL EXAMINATION VITAL SIGNS: Weight 192 pounds, temperature 96.8, pulse 73, blood pressure 102/60, respiratory rate 16, O2 saturation 92% on room air. CONSTITUTIONAL/GENERAL APPEARANCE: The patient is sitting up in chair, no acute distress. HEENT: Pupils are equal, round and reactive to light and accommodation. Extraocular movements are intact. There are no lesions of the oropharynx. Sclerae are anicteric. NECK: Supple. Trachea is midline. LYMPHATICS: No palpable, supraclavicular or lymphadenopathy bilaterally. LUNGS: Clear to auscultation and percussion bilaterally. CARDIOVASCULAR: Regular rate and rhythm. Normal S1, S2. No murmurs, rubs or gallops. ABDOMEN: Soft, nontender, positive bowel sounds. No hepatosplenomegaly. EXTREMITIES: No edema, clubbing or cyanosis. NEUROLOGIC: Patient is alert and oriented x3. Gait is normal. IMPRESSION Patient is a 68-year old gentleman with a borderline resectable pancreatic adenocarcinoma. Radiographic T3 N0, stage IIB. The patient has been initiated on FOLFIRINOX chemotherapy and has completed at least six cycles. The patient presents today to discuss neoadjuvant chemoradiation therapy. PLAN The patient was apprised of the role of neoadjuvant chemoradiation therapy in the treatment of borderline resectable pancreatic adenocarcinoma. The patient was apprised that retrospective series suggests that chemoradiation therapy does improve the R0 resection rate for patients with borderline resectable pancreatic adenocarcinoma. The side effect profile of chemoradiation therapy was discussed at length with the patient. The patient understands this discussion and wishes to proceed with neoadjuvant chemoradiation therapy. He has signed written informed consent to undergo this treatment. He will be scheduled for a CT scan for planning and simulation purposes. We will plan on intensity modulator radiotherapy as the patient has significant tumor extension into the duodenum and we wish to use intensity modulator radiotherapy to limit dose to normal critical structures such as the kidneys, small bowel, duodenum, spinal cord and liver. The patient's case will be discussed with Dr. Evans as to when we will initiate radiotherapy. We will plan on a 28 fraction course of radiotherapy to a preoperative dose of 5,040 cGy in 28 fractions. MTDD
[2019-05-09] MEDS ORDERED: OXYC10TA67 PO (14:22)
[2019-05-10] MEDS ORDERED: ALLO-119 PO (14:31)
[2019-05-14] MEDS ORDERED: METO2.5T15 PO (13:27)
[2019-05-14] MEDS ORDERED: FURO-45 PO (13:27)
== END 2019-05-28 ==
LOC: RAON 11:30
PROVIDERS: ATTEND Radiology Radiation Oncology
DX: Z51.0 Encounter for antineoplastic radiation therapy (principal); C25.9 Malignant neoplasm of pancreas, unspecified; E11.9 Type 2 diabetes mellitus without complications; Z92.21 Personal history of antineoplastic chemotherapy
CPT/HCPCS: 77300; 77301; 77334; 77336; 77338; 77386; 83735